=== PATIENT | male | born 1945 | race Caucasian/White ===

== ENCOUNTER 2016-11-07 08:38 | Outpatient (CLI) | payer MEDICARE, OTHER ==
[~2016-11-07] VITALS: Ht 175.3 cm; Wt 104.5 kg
[~2016-11-07 08:38] MED LIST: AMLO5TAB2 PO; ASP325T PO; CARV3.122 PO; CEPH500C PO; CHOL200041 PO; CLCX200C PO; ERGO400C PO; GLUC-135 PO; GLUC-96 PO; GLUCOSAMINE SULFATE PO; HYDR12.56 PO; HYDR1TAB PO; INDO25CA PO; LACT1CAP62 PO; LOSA25TA5 PO; MELO-195 PO; MULT-608 PO; NFAMINITAB PO; OMEG-12 PO; OMEG1CAP74 PO; PNT40TEC PO; POTA2TAB15 PO; POTA99TA7 PO; QUIN10TA17 PO; SIMV10TA3 PO; SIMV20TA3 PO; TERA2CAP4 PO; TRIA1TAB3 PO; ZLP10T PO
[2016-11-07 09:00] VITALS: BP 198/104
[2016-11-07 09:15] VITALS: BP 198/104
[2016-11-07 09:27] LABS: BASOPHILS # (AUTO) 0.1 10^3/uL (0.0-0.1); BASOPHILS % (AUTO) 1 % (0-10); EOSINOPHILS # (AUTO) 0.2 10^3/uL (0.0-0.3); EOSINOPHILS % (AUTO) 3 % (0-10); LYMPHOCYTES # (AUTO) 1.4 X 10^3 (1.0-4.0); LYMPHOCYTES % (AUTO) 19 % (12-44); MEAN CORPUSCULAR HEMOGLOBIN 32 PG (25-34); MEAN CORPUSCULAR HGB CONC 35 G/DL (32-36); MEAN CORPUSCULAR VOLUME 91 FL (80-99); MEAN PLATELET VOLUME 12.9 FL (7.4-10.4); MONOCYTES # (AUTO) 0.6 X 10^3 (0.0-1.0); MONOCYTES % (AUTO) 9 % (0-12); NEUTROPHILS # (AUTO) 4.8 X 10^3 (1.8-7.8); NEUTROPHILS % (AUTO) 68 % (42-75); PLATELET COUNT 130 10^3/uL (130-400); RED BLOOD COUNT 5.69 10^6/uL (4.35-5.85); RED CELL DISTRIBUTION WIDTH 13.1 % (10.0-14.5)
[2016-11-07 09:50] LABS: PROTHROMBIN TIME PATIENT 13.2 SEC (12.2-14.7)
--- NOTE | 2016-11-07 11:08 | Diagnostic Imaging Report ---
EXAMINATION: Fluoroscopic guided lumbar puncture with intrathecal contrast injection and myelogram performed. INDICATION: Back pain. FLUOROSCOPY TIME: 45 seconds CONSENT: Informed consent was obtained from the patient. The risks, benefits, potential complications and alternatives were reviewed and all questions answered to the patient's satisfaction. PROCEDURE: After sterile preparation and draping, 1% lidocaine was utilized for local anesthesia. Under fluoroscopic guidance, a 22-gauge spinal needle is advanced into the spinal canal at the level of L4/5. Clear CSF is obtained. Under fluoroscopic visualization, 12 cc of intrathecal Omnipaque-240 is administered into the thecal sac. The patient tolerated the procedure well with no immediate complications. FINDINGS: Myelogram images demonstrate opacification of the thecal sac. There is posterior osteophytes with high-grade stenosis at the L3/4 level. IMPRESSION: Successful fluoroscopic guided intrathecal contrast injection with myelogram obtained and a lumbar CT myelogram to follow. Dictated by: Dictated on workstation # [id number]
--- NOTE | 2016-11-07 11:39 | Diagnostic Imaging Report ---
CLINICAL INDICATION: Patient with history of back pain. EXAM: Axial CT scan of the lumbar spine myelogram post intrathecal contrast injection myelogram which was performed with sagittal and coronal reformations. The injection of intrathecal contrast was performed by another physician. Please see their notes regarding the procedure. COMPARISON: CT scan of the abdomen and pelvis performed without and with IV contrast dated 12/04/2014. FINDINGS: Nonobstructive bilateral renal stones and bilateral renal cysts are again seen. There is amorphous calcification of a nodular area involving the posterior limb of the left adrenal gland, which measures roughly 14 mm. This is stable compared to the prior CT scan. There is mild levoscoliosis of lumbar spine with apex at the L3 vertebral body level. Otherwise, the lumbar spine has normal alignment with no fractures or dislocations. There are no bony destructive lytic processes seen. There is a 5 mm nodular rounded lesion in the region of the cauda equina at the level of the L4-L5 intervertebral region. Otherwise, the visualized portions of the distal spinal cord, conus medullaris, and cauda equina have normal anatomic appearance. The conus medullaris tip is seen at the upper L2 vertebral body level. Paraspinal soft tissues unremarkable. There are hypertrophic disc spurs seen throughout the lumbar spine which is worse at the L3-L4 level. There is multilevel facet arthropathy. T12-L1: Mild bilateral facet arthropathy. There is no significant central spinal canal or neural foramen narrowing. L1-L2: There is a diffuse disc bulge, chronic Schmorl's node involving the inferior L1 endplate, mild bilateral facet arthropathy and minimal ligament flavum buckling. There is mild central canal narrowing and mild bilateral neural foramen narrowing. L2-L3: There is a diffuse disc bulge with disc spurs extending into the foraminal regions bilaterally. There is zynp-qy-eavwqpru bilateral facet arthropathy and minimal ligamentum flavum buckling. There is dplv-dq-kchrhgfk central canal narrowing. There is severe right neural foramen narrowing and moderate left neural foramen narrowing. L3-L4: There is a diffuse disc bulge, severe loss of intervertebral disc height, endplate irregularity and hypertrophic disc spurs in the far right lateral region. There are disc spurs which extend posteriorly and into the foraminal regions bilaterally. There is severe bilateral facet arthropathy with hypertrophic changes on the right ligament flavum buckling. There is severe central canal narrowing and severe bilateral neural foramen narrowing. L4-L5: There is a diffuse disc bulge, mild loss of intervertebral disc height, vacuum disc changes, moderate bilateral facet arthropathy with hypertrophic changes. There is mild central canal narrowing and severe bilateral neural foramen narrowing. L5-S1: There is a diffuse disc bulge, hlaohvjo-xg-mzwxuy loss of intervertebral disc height, chronic Schmorl's node involving the inferior L5 endplate, vacuum disc changes, moderate size anterior disc extrusion/herniation, moderate right facet arthropathy and severe left facet arthropathy. There is no significant central canal narrowing. There is severe bilateral neural foramen narrowing. IMPRESSION: 1: There is an intrathecal 5 mm nodular area in the region of the cauda equina which is seen at the L4-L5 intervertebral level. 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 Drop metastasis cannot be completely excluded. Meningioma is less likely. MRI of the lumbar spine with and without IV contrast is suggested for better evaluation. 2: There is levoscoliosis and severe multilevel lumbar spine degenerative disc disease with diffuse disc bulges, disc herniations, and facet arthropathy. 3: There is severe central canal narrowing at the L3-L4 level due to disc spurs and facet arthropathy/ligamentum flavum buckling. 4: There is severe multilevel neural foramen narrowing seen from the L3 through S1 levels. Dictated by: Dictated on workstation # [id number]
[2016-11-07 12:22] VITALS: BP 168/96
[2016-11-07 13:15] VITALS: BP 165/83
--- NOTE | 2016-11-07 13:55 | Diagnostic Imaging Report ---
CLINICAL INDICATION: Patient with history of left arm numbness and pain. No known injury. EXAM: Axial CT cervical myelogram with sagittal and coronal reformations. The injection of intrathecal contrast was performed by another physician. Please see their notes regarding the procedure. COMPARISON: MRI of the cervical spine performed without IV contrast dated 10/17/2016. Findings: There is limited visualization of the lower cervical spine due to streak artifact and patient body habitus. Visualized portions of the intrathecal contrast is seen homogeneously throughout the cervical central spinal canal and posterior fossa region with no gross intrathecal masses or abnormality seen. There are no postop changes seen. There is abnormal straightening of the mid to lower cervical spine posture likely related to degenerative disc disease. There is no acute cervical spine fracture. There is hypertrophic disc spurs seen throughout the cervical spine and bilateral facet arthropathy. There are no fractures or dislocations seen. There is calcified granuloma in the right lung apex. Otherwise, the visualized lung apices are unremarkable. Is asymmetry of the thyroid gland tissue with the right side larger than left. There is concern for partially calcified nodule in the right thyroid gland which is obscured by streak artifact. There is atherosclerotic calcification of the bilateral carotid arteries. C1-C2: Again seen hypertrophic anterior spurs involving the atlantoodontoid interval anteriorly. There is a stable prominent periodontoid pannus seen. There is subchondral cystic changes involving the odontoid process. There is no significant central spinal canal. C2-C3: There is no significant disc bulge or herniation. There is severe right facet arthropathy/hypertrophy and zotp-ir-aalmwtdp left facet arthropathy. There is ipshliel-yz-ezufdi right neural foramen narrowing and no significant left neural foramen narrowing. There is no significant central canal narrowing. C3-C4: There is stable grade 1 anterolisthesis of C3 on C4 with diffuse disc bulge and small spurs in the bilateral foraminal regions. There is severe left facet arthropathy/hypertrophy and moderate right facet arthropathy/hypertrophy. There is stable nzjy-qw-mxkuzzag central canal narrowing. There is stable uszkczfg-hf-ktzilw right neural foramen narrowing and severe left neural foramen narrowing. C4-C5: There is concern for subtle grade 1 anterolisthesis of C4 on C5, which is more evident on today's exam than the prior study. There is a diffuse disc bulge, minimal ligamentum flavum buckling, severe left facet arthropathy/hypertrophy, and grdy-xi-ecvpkked right facet arthropathy. There is phmp-vn-sojvlpro central canal narrowing. There is severe left neural foramen narrowing and mild right neural foramen narrowing. C5-C6: Again seen diffuse disc bulge, xuzvmbrg-nm-ysdros loss of intervertebral disc height, hypertrophic disc spurs posteriorly and anteriorly and small bilateral uncinate spurs. There is moderate bilateral facet arthropathy. There is stqhyfmt-fp-ugfgzn central canal narrowing and roipnsge-nx-mttmod bilateral neural foramen narrowing (right side more than the left). C6-C7: Again seen diffuse disc bulge with moderate to severe loss of intervertebral disc height, endplate irregularity, Schmorl's nodes, hypertrophic disc spurs anteriorly and posteriorly and bilateral uncinate spurs. There is severe central canal narrowing and severe bilateral neural foramen narrowing. C7-T1: There is stable grade 1 anterolisthesis of C7 on T1 with diffuse disc bulge and moderate right facet arthropathy and mild left facet arthropathy. There is eveh-lq-vrzkedia central canal narrowing. There is smpg-nw-qzmhwbzu left neural foramen narrowing. IMPRESSION: 1: There is stable nthseizq-ea-bvqzod multilevel cervical spine degenerative disc disease which is worse at the C5-C6 and C6-C7 levels with multilevel diffuse disc bulges and facet arthropathy. 2: There is grade 1 anterolisthesis of C3 on C4, C4 on C5, and C7 on T1. 3: There is multilevel central canal and neural foramen narrowing, as described above. 4: There are severe degenerative changes of the C1-C2 level including prominent periodontal pannus. 5: Concern for right thyroid gland nodule, which is partially calcified. Thyroid ultrasound would better evaluate. Dictated by: Dictated on workstation # [id number]
[2016-11-07] MEDS ORDERED: ACETAMINOPHEN 500 MG TAB (TYLENOL) PO PRN (14:45)
[2016-11-07] MEDS ORDERED: CETI10TA17 PO (14:58)
[2016-11-07] MEDS ORDERED: PANT40TA2 PO (14:58)
[2016-11-07] MEDS ORDERED: MONT10TA24 PO (14:58)
[2016-11-07] MEDS ORDERED: IBUP-1780 PO (14:58)
[2016-11-07] MEDS ORDERED: DOCU100C37 PO (14:58)
[2016-11-07] MEDS ORDERED: POLY15DR14 OU (14:58)
[2016-11-07] MEDS ORDERED: ASPI-983 PO (14:58)
[2016-11-07] MEDS ORDERED: NYST1000 PO (14:58)
[2016-11-07] MEDS ORDERED: LOSA100T28 PO (14:58)
[2016-11-07] MEDS ORDERED: LEVO25TA5 PO (14:58)
[2016-11-07] MEDS ORDERED: ATOR20TA66 PO (14:58)
[2016-11-07] MEDS ORDERED: TIOT4MIS2 IH (14:58)
[2016-11-07 15:15] VITALS: BP 162/84
== END 2016-11-07 16:15 | disposition home or self-care (01) ==
LOC: RAD 08:38 → 4TH 08:38 → RAD 16:15
PROVIDERS: ATTEND Orthopaedic Surgery Orthopaedic Surgery of the Spine
DX: M48.02 Spinal stenosis, cervical region (principal); M48.06 Spinal stenosis, lumbar region
CPT/HCPCS: 36415; 62284; 72126; 72132; 72270; 77002; 85025; 85610; 85730

== ENCOUNTER → 2016-11-14 | Outpatient (CLI) | payer MEDICARE, OTHER ==
[~2016-11-14] MED LIST changes: +ASPI-983 PO; +ATOR20TA66 PO; +CETI10TA17 PO; +DOCU100C37 PO; +IBUP-1780 PO; +LEVO25TA5 PO; +LOSA100T28 PO; +MONT10TA24 PO; +NYST1000 PO; +PANT40TA2 PO; +POLY15DR14 OU; +TIOT4MIS2 IH
--- NOTE | 2016-11-15 08:48 | ECHOCARDIOGRAPHY REPORT ---
PROCEDURE PHYSICIAN: BECKY KRISHNAN DATE OF PROCEDURE: 11/14/2016 TWO DIMENSIONAL ECHOCARDIOGRAM REPORT PRIMARY PHYSICIAN: Dr. Encinas OTHER PHYSICIAN: REFERRING PHYSICIAN: ORDERING PHYSICIAN: Dr. Krishnan INDICATION FOR THE PROCEDURE: 1. Pulmonary hypertension. 2. Hypertension. 3. Hyperlipidemia. 4. Sleep apnea. MEASUREMENTS DERIVED VALUES LV DIAMETER (LAX) NORMALS NORMALS Diastolic 5 (3.6-5.2) Eject. Fract. (60%+/-6%) Systolic (2.3-3.9) Diastolic Vol. % Shortening (0.22-0.42) Systolic Vol. Aortic Root 3.4 IVS THICKNESS Diastolic 1.2 (0.6-1.1) LVPW THICKNESS Diastolic 1.3 (0.6-1.1) LA DIAMETER Systolic 5.2 (2.1-3.7) DESCRIPTION: Two-dimensional echocardiography shows normal global left ventricular systolic function with normal regional wall motion. Aortic, mitral and tricuspid valve leaflets show good leaflet excursion. There is no significant pericardial effusion. There is moderate enlargement of the left atrium. Aortic, mitral and tricuspid valve leaflets show good reconstruction. Doppler imaging shows mild pulmonic regurgitation. Mild aortic, tricuspid and mitral regurgitation is also seen. There is no Doppler evidence of any significant valvular stenosis. Left ventricular ejection fraction is estimated to be 50 to 60%. Pulmonary artery systolic pressure is estimated to be approximately 40 to 45 mmHg. There is no evidence of significant intracardiac shunt on this transthoracic echocardiographic study. Inferior vena cava appears to be of normal size and does exhibit inspiratory collapse. CONCLUSIONS: 1. Normal global left ventricular systolic function with an ejection fraction of approximately 50 to 55%. 2. Moderate enlargement of the left atrium. 3. Mild pulmonic mitral, tricuspid and aortic regurgitation. 4. No evidence of significant valvular stenosis. 5. Pulmonary artery systolic pressure is estimated to be 40 to 45 mmHg. 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
== END ==
LOC: CARD 11:53
PROVIDERS: ATTEND Internal Medicine Cardiovascular Disease
DX: I10 Essential (primary) hypertension (principal); E78.4 Other hyperlipidemia; G47.33 Obstructive sleep apnea (adult) (pediatric); I47.2 Ventricular tachycardia; I27.2 Other secondary pulmonary hypertension; E66.09 Other obesity due to excess calories
CPT/HCPCS: 93306

== ENCOUNTER → 2016-11-15 | Outpatient (CLI) | payer MEDICARE, OTHER ==
--- NOTE | 2016-11-15 10:55 | Diagnostic Imaging Report ---
PROCEDURE: MRI lumbar spine. TECHNIQUE: Multiplanar, multisequence MRI of the lumbar spine was performed without contrast. The patient was originally scheduled to have intravenous contrast for this exam, but he declined the contrast. INDICATION: Back pain. FINDINGS: There are no previous MRI lumbar spine examinations available for comparison. The recent CT lumbar spine exam performed on 11/07/2016 noted degenerative disc and bony disease throughout the lumbar spine with the L3-4 level the most significantly affected. There was severe trefoil stenosis at this level as well as marked narrowing of the neural foramina bilaterally, particularly on the right. Those degenerative changes are again evident on this study and essentially no different. The AP diameter of the thecal sac is narrowed to 4.5 mm. The previous exam also identified degenerative disc and bony disease at L2-3, L4-5 and L5-S1. At the L2-3 level, there is trefoil stenosis with narrowing of the AP dimension of the thecal sac to approximately 9.1 mm. There is also moderate narrowing of the neural foramen bilaterally at this level. At the L4-5 level, there is deformity of the thecal sac due to degenerative disc, ligamentous and bony disease. The AP diameter of thecal sac is approximately 12.3 mm. There does appear to be severe narrowing of the neural foramina bilaterally. At L5-S1, there is no evidence for central stenosis as the AP diameter of the thecal sac measures 17.9 mm. There is severe narrowing of the neural foramen bilaterally however. At the L1-2 level, the AP diameter of the thecal sac measures 10.5 mm. There is moderate narrowing of the neural foramina bilaterally at this level. The previous exam astutely noted a small 5 mm rounded lesion in the region of the cauda equina at the level of L4-5. 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 That lesion is difficult to visualize in the absence of intravenous contrast. There is no abnormal signal arising from the osseous structures to suggest bone edema or fracture. There is no sign of a cord lesion. There is no paraspinal mass identified. IMPRESSION: 1. The degenerative disc, ligamentous and bony disease throughout the lumbar spine seen on the recent CT lumbar spine exam is again evident and no different. The L3-4 level is the most significantly affected although there is severe narrowing of the neural foramen bilaterally at L4-5 and L5-S1. 2. The small nodular density arising from one of the nerve roots at the L4-5 level could not be identified on this study due to the absence of intravenous contrast. Most likely this is a benign process however. 3. There is no acute bony abnormality identified and there is no sign of a cord lesion. Dictated by: Dictated on workstation # [id number]
== END ==
LOC: RAD 09:29
PROVIDERS: ATTEND Orthopaedic Surgery Orthopaedic Surgery of the Spine
DX: M48.06 Spinal stenosis, lumbar region (principal)
CPT/HCPCS: 72148

== ENCOUNTER → 2016-12-18 | Outpatient (CLI) | payer MEDICARE, OTHER ==
[~2016-12-18] VITALS: Ht 175.3 cm; Wt 108.0 kg
[~2016-12-18] MED LIST changes: +DEXAMETHASONE PF 10 MG/ML (DECADRON) VIAL ONE
[2016-12-18 14:13] VITALS: BP 179/97
--- NOTE | 2016-12-18 14:42 | Pain Medicine-Procedure ---
Procedure Pre-Op/Post-Op Diagnosis Diagnosis: disc disorder with radiculopathy, cervical Indications for Operation Neck pain Attending Surgeon Mariya Procedure Date of Service: Dec 18, 2016 Procedure: Cervical Epidural Steroid Injection at the C7-T1 Level under Fluoroscopic Guidance Procedure: Pt was identified in the holding area. After risks, benefits, and alternatives were discussed with the patient, informed consent was obtained. An IV was placed by nursing staff prior to procedure. Patient was brought to the fluoroscopy suite and placed prone on the operating table. A time out was performed. Vital signs were monitored throughout the procedure. The patients neck was prepped and draped in the usual sterile fashion. The patients skin was anesthetized using 1% Lidocaine. A 18 gauge tuohy needle was inserted and advanced to the C7-T1 epidural space under fluoroscopic guidance using the loss of resistance technique. The needle position was confirmed in the AP and lateral view. After negative aspiration 2 ml of non-ionic contrast was injected under live fluoroscopy which showed good spread of the contrast in the epidural space at the appropriate level, there was no intravascular or subarachnoid spread. Again, after negative aspiration, 3 ml of preservative free normal saline and 10 mg of dexamethasone was injected. The needle was removed and the patient was transferred to the recovery area in stable condition. And after a brief period of observation was discharged to home in stable condition with no new neurologic deficits. Complications None HERB MANRIQUEZ MD Dec 18, 2016 2:42 pm
== END ==
LOC: CARD 13:20
PROVIDERS: ATTEND Pain Medicine Pain Medicine
DX: M50.13 Cervical disc disorder with radiculopathy, cervicothoracic region (principal)
CPT/HCPCS: 62321

== ENCOUNTER → 2016-12-21 | Outpatient (CLI) | payer MEDICARE, OTHER ==
[~2016-12-21] MED LIST changes: -DEXAMETHASONE PF 10 MG/ML (DECADRON) VIAL ONE; +GADOBUTROL 10 MMOL/10 ML (GADAVIST) VIAL IV ONE
[2016-12-21 13:55] LABS: BLOOD UREA NITROGEN 18 MG/DL (7-18); BUN/CREATININE RATIO 16; CREATININE SERUM 1.16 MG/DL (0.60-1.30); GFR ESTIMATED > 60
--- NOTE | 2016-12-21 15:31 | Diagnostic Imaging Report ---
PROCEDURE: MRI lumbar spine with and without contrast. TECHNIQUE: Multiplanar, multisequence MRI of the lumbar spine was performed with and without contrast. INDICATION: Back pain. Nodule seen on CT myelogram lumbar spine of 11/07/2016. 10 mL of Gadovist is administered intravenously. FINDINGS: There is an enhancing nodule with isointense T1 and hyperintense T2 signal seen along the posterior right side aspect of the spinal canal in an intradural location. On this exam, it is more posteriorly located compared to its central anterior location on 11/07/2016 myelogram exam. This is suggestive of site of origin in the cauda equina nerve roots. It is 6 x 5 x 3 mm in size and demonstrates homogeneous enhancement. No other lesion within the thecal sac with similar characteristics and no enhancing mass. The alignment of the posterior spinal line is satisfactory. The vertebral body heights are preserved. There are mild Modic type I changes seen along the endplates in the upper, mid and lower lumbar spine levels. There is disc desiccation at all levels. There is significant disc height loss at L3/L4 and moderate disc height loss at L5/S1 level. There is no suspicious marrow signal abnormality. A few scattered small lesions in the vertebral bodies of the lumbar spine and sacrum are compatible with hemangiomas. T12/L1: No disc herniation. There is mild facet hypertrophy. No spinal canal or foraminal stenosis. The conus terminates at lower L1 level. L1/L2: There is a mild disc bulge and moderate facet hypertrophy. There is no significant spinal canal stenosis. There is no foraminal narrowing. L2/L3: There is a diffuse disc bulge and moderate facet arthropathy. There is mild central canal stenosis reducing the AP dimension of the canal to 9.6 mm with associated mild to moderate lateral recess stenosis bilaterally. There is moderate to severe foraminal stenosis on the right side and no significant foraminal stenosis on the left. L3/L4: There is a diffuse disc bulge and moderate to severe facet arthropathy. This results in severe spinal canal stenosis reducing the AP dimension of the spinal canal to 5.2 mm and bilateral lateral recess stenosis severe on the right and moderate to severe on the left. There is also bilateral foraminal stenosis, markedly severe on the right side and moderate to severe on the left. L4/L5: There is disc bulge asymmetric to the right side and moderate facet arthropathy bilaterally. No central canal stenosis. There is mild to moderate lateral recess stenosis on both sides. The foramina demonstrate markedly severe stenosis on the left and moderate to severe stenosis on the right side. L5/S1: There is diffuse disc bulge and mild to moderate facet arthropathy, more prominent on the left side. No central canal stenosis. Moderate left lateral recess stenosis is seen. No significant right lateral recess stenosis is noted. The foramina demonstrate bilateral markedly severe stenosis. IMPRESSION: 1. There is a 6 mm enhancing nodule along the cauda equina at L4/L5 level, probably along one of the right-sided descending nerve roots. This could be related to a nerve sheath tumor, meningioma or paraganglioma. Although no other similar lesions are seen, drop metastasis is not entirely excluded. Consider imaging of the brain and rest of the spine to rule out a primary lesion, particularly if other neurologic symptoms are present. 2. There is severe spinal canal stenosis at L3/L4 level and multilevel severe foraminal stenosis as described above. Dictated by: Dictated on workstation # [id number]
== END ==
LOC: RAD 13:06
PROVIDERS: ATTEND Pain Medicine Pain Medicine
DX: M54.5 Low back pain (principal)
CPT/HCPCS: 36415; 72158; 82565; 84520

== ENCOUNTER → 2017-01-09 | Outpatient (CLI) | payer MEDICARE, OTHER ==
--- NOTE | 2017-01-09 12:37 | Diagnostic Imaging Report ---
PROCEDURE: MR imaging of the brain with and without contrast. TECHNIQUE: Multiplanar, multisequence MR imaging of the brain was performed with and without contrast. INDICATION: Neck pain. Enhancing nodule in the lumbar spine along the cauda equina. 10 mL of Gadovist is administered intravenously. FINDINGS: There is no diffusion restriction to suggest an acute infarct or other diffusion abnormality. The brain parenchyma demonstrates mild periventricular and deep white matter T2 hyperintense signal lesions without associated mass effect or contrast enhancement, compatible with chronic microvascular ischemic changes of mild degree. This is a common finding at the patient's age. There is no hydrocephalus. No extra-axial fluid collection. There is no brain or extra-axial enhancing mass. The central vascular flow voids and internal auditory canals appear grossly unremarkable. The pituitary gland is normal in size. No hypothalamic or pineal region mass. IMPRESSION: No significant abnormality. Dictated by: Dictated on workstation # [id number]
--- NOTE | 2017-01-09 12:47 | Diagnostic Imaging Report ---
PROCEDURE: MR imaging cervical spine with and without contrast. TECHNIQUE: Multiplanar and multisequence MRI of the cervical spine was performed with and without contrast. INDICATION: Neck pain. Enhancing nodule along the cauda equina and lumbar spine. Evaluate for potential source of drop metastasis. 10 mL of Gadavist is administered intravenously. FINDINGS: There is mild anterior translation of C7 over T1 and minimal posterior translation of C6 over C7. The discs at these levels demonstrate significant disc height loss particularly at C6/7. There are posterior osteophytes noted. The vertebral bodies demonstrate marrow edema adjacent to the endplates around C5/6 compatible with reactive degenerative changes. The spinal cord has normal caliber, contour and signal. The foramen magnum and upper cervical canal are widely patent. There is mild reactive enhancement in vertebral body marrow signal within C4 and inferior endplate, matching the area of degenerative change seen on other sequences. There is no abnormal enhancement of the spinal canal or within the spinal cord. C2/3: No disc herniation, no spinal canal stenosis seen. There is bilateral moderate foraminal stenosis from facet arthropathy more prominent on the right side. C3/4: There is a mild disc spur complex with no significant spinal canal stenosis. The neural foramina demonstrate severe stenosis on the left and moderate stenosis on the right side. C4/5: There is spur disc complex and posterior ligamentous hypertrophy. The spinal canal demonstrate no significant stenosis centrally. There is mild spinal canal stenosis in the left side of the spinal canal abutting the posterior margin of the spinal cord within the left side of the canal. The neural foramina demonstrate severe stenosis bilaterally from uncovertebral and facet arthropathy. C5/6: There is spur disc complex associated with posterior ligamentous hypertrophy resulting in mild to moderate spinal canal stenosis with reduced AP dimension of the canal to 8.6 mm. No cord compression. The foramina demonstrate severe stenosis bilaterally. C6-7: There is disc spur complex and posterior ligamentous hypertrophy. There is also minimal posterior translation of C6 over C7. There is moderate spinal canal stenosis reducing the AP dimension of the canal to 7.6 cm abutting the spinal cord with minimal impression upon its anterior surface. The neural foramina demonstrates severe stenosis bilaterally. C7/T1: There is a spur disc complex and mild anterior translation of the vertebral bodies but no spinal canal stenosis or cord compression. The foramina demonstrate severe stenosis on the left and moderate stenosis on the right side. T1/T2: There is a mild disc spur complex with no central canal stenosis. There is bilateral moderate neural foraminal stenosis. IMPRESSION: 1. Advanced disc and facet degenerative changes with multilevel central canal and foraminal stenosis. 2. No enhancing mass in the spinal cord. Dictated by: Dictated on workstation # [id number]
--- NOTE | 2017-01-09 12:59 | Diagnostic Imaging Report ---
Multiplanar, multisequence MRI of the thoracic spine performed without and with intravenous contrast. INDICATION: Neck and back pain. Cauda equina enhancing nodule. Evaluate for possible underlying mass. 10 mL of Gadovist is administered intravenously. FINDINGS: The thoracic spine demonstrates normal alignment. There are preserved vertebral body heights. There is a 1.6 cm lesion in the T10 vertebral body with fat signal suggestive of hemangioma. There is disc desiccation at all levels. The spinal cord has normal caliber, contour, and signal. There is bilateral mild foraminal narrowing at the T8-T9 level. Bilateral foraminal stenosis at T1-T2 and T2-T3 of moderate degree worse at T1-T2 is seen. There are mild disc herniations at T1-T2 and T2-T3 with no spinal canal stenosis. No significant spinal canal stenosis or cord compression at any level. There is no spinal canal or spinal cord enhancing mass. Prominent facet arthropathy at T12-L1 bilaterally and on the left side in particular at T11-T12 is seen. IMPRESSION: 1. Generally mild degenerative changes in the thoracic spine. There is foraminal stenosis bilaterally at T1-T2 and T2-T3. 2. There is no enhancing mass in the spinal canal or in the spinal cord. Similarly, no enhancing mass is seen in the brain or the cervical spine and therefore the nodule along the cauda equina in the lumbar spine is not a drop metastasis from the neural axis. Other possibility such as nerve sheath tumor is more likely. Dictated by: Dictated on workstation # [id number]
== END ==
LOC: RAD 09:39
PROVIDERS: ATTEND Pain Medicine Pain Medicine
DX: M54.6 Pain in thoracic spine (principal); M50.13 Cervical disc disorder with radiculopathy, cervicothoracic region
CPT/HCPCS: 70553; 72156; 72157

== ENCOUNTER → 2017-01-27 | Outpatient (CLI) | payer MEDICARE, OTHER ==
[~2017-01-27] MED LIST changes: -GADOBUTROL 10 MMOL/10 ML (GADAVIST) VIAL IV ONE
--- NOTE | 2017-01-27 12:40 | Diagnostic Imaging Report ---
INDICATION: Acute bronchitis. COMPARISON: 04/04/2016 FINDINGS: 2 views of the chest are obtained. Heart size is normal. The pulmonary vessels appear unremarkable. There is no pneumothorax, mediastinal widening or pleural fluid demonstrated. The lungs are clear. There are mild dependent changes in the spine. IMPRESSION: No acute cardiopulmonary abnormality. No interval change from the prior study. Dictated by: Dictated on workstation # [id number]
== END ==
LOC: RAD 11:47
PROVIDERS: ATTEND Nurse Practitioner Family
DX: J20.9 Acute bronchitis, unspecified (principal)
CPT/HCPCS: 71020

== ENCOUNTER → 2017-02-15 | Outpatient (CLI) | payer MEDICARE, OTHER ==
[~2017-02-15] VITALS: Ht 175.3 cm; Wt 107.0 kg
[~2017-02-15] MED LIST changes: +CATHETER FLUSH 10 ML SYR IV PRN; +REGADENOSON 0.4 MG/5 ML SYR (LEXISCAN) IV ONE
[2017-02-15 10:07] VITALS: BP 137/99
[2017-02-15 10:11] VITALS: BP 171/98
--- NOTE | 2017-02-17 09:10 | STRESS TEST ---
DATE OF SERVICE: 02/15/2017 PROCEDURES: RESTING AND POST REGADENOSON, TECHNETIUM-99M TETROFOSMIN SINGLE-PHOTON EMISSION COMPUTED TOMOGRAPHY ORDERING PHYSICIAN: Dr. Krishnan PRIMARY PHYSICIAN: Dr. Encinas. CLINICAL DIAGNOSES: Nonsustained wide complex tachycardia, hypertension, hyperlipidemia. Baseline images were carried out after injection of 9.99 mCi of technetium-99m Tetrofosmin. This was followed by 0.4 mg Regadenoson 29.9 mCi of technetium-99m tetrofosmin for stress imaging. The electrocardiogram showed sinus rhythm with isolated premature ventricular contractions and premature atrial contractions. He reported some nausea following regadenoson infusion, which resolved in a few minutes. Review of images at rest and following stress does not indicate any distinct perfusion defects consistent with significant myocardial ischemia or infarction. Gated images show well-preserved global left ventricular systolic function without distinct regional wall motion. Left ventricular ejection fraction is calculated to be 50%. Left ventricular end diastolic volume is 152 mL, TID is absent (0.93). DESCRIPTION: 1. No evidence of significant myocardial ischemia or infarction on this study. 2. Normal regional wall motion. 3. Well preserved global left ventricular systolic function with an ejection fraction of 50%. 4. Mild to moderate cardiomegaly. Job ID: [id number] DocumentID: [id number] Dictated Date: 02/16/2017 11:08:25 Speeder Tender Date: 02/16/2017 14:55:09 Dictated By: BECKY KRISHNAN MD, MA, FACP, FACC,
== END ==
LOC: CARD 08:24
PROVIDERS: ATTEND Internal Medicine Cardiovascular Disease
DX: I10 Essential (primary) hypertension (principal); E78.5 Hyperlipidemia, unspecified; I47.2 Ventricular tachycardia; I27.2 Other secondary pulmonary hypertension; E78.4 Other hyperlipidemia; G47.33 Obstructive sleep apnea (adult) (pediatric); E66.09 Other obesity due to excess calories
CPT/HCPCS: 78452; 93017

== ENCOUNTER → 2017-04-09 | Outpatient (CLI) | payer MEDICARE, OTHER ==
[~2017-04-09] MED LIST changes: -CATHETER FLUSH 10 ML SYR IV PRN; +CETI1TAB PO; +CHOL20003 PO; +CYAN100015 SL; +DILT240C53 PO; +FLUT16SP22 NS; +FLUT1BLS IH; +GABA-490 PO; +GLUC-173 PO; +METO200T32 PO; +MULT-1061 PO; +OXYM30SP NS; -REGADENOSON 0.4 MG/5 ML SYR (LEXISCAN) IV ONE; +UBID100C44 PO
== END ==
LOC: CARD 11:39
PROVIDERS: ATTEND Nurse Practitioner Family
DX: I49.9 Cardiac arrhythmia, unspecified (principal); R06.02 Shortness of breath
CPT/HCPCS: 93005

== ENCOUNTER → 2017-04-10 | Day surgery (SDC) | payer MEDICARE, OTHER ==
[~2017-04-10] VITALS: Ht 175.3 cm; Wt 106.6 kg
[~2017-04-10] MED LIST changes: +APIXABAN 5 MG (ELIQUIS) TABLET PO NR; +LIDOCAINE 2% VISCOUS 15 ML UDC ONE; +LIDOCAINE 2% VISCOUS 15 ML UDC PO ONE; +MIDAZOLAM 2 MG/2 ML (VERSED) VIAL ONE; +NS IV 1000 ML 1,000 ML IV SCH; +NS IV 1000 ML 1,000 ML ONE; +fentaNYL INJECTION 100 MCG/2 ML AMP ONE; +proPOfol 200 MG/20 ML (DIPRIVAN) VIAL IV ONE
[2017-04-10 08:56] VITALS: BP 159/122
[2017-04-10 08:58] LABS: MEAN PLATELET VOLUME 13.2 FL (7.4-10.4); RED BLOOD COUNT 4.94 10^6/uL (4.35-5.85); RED CELL DISTRIBUTION WIDTH 14.5 % (10.0-14.5); WHITE BLOOD COUNT 7.5 10^3/uL (4.3-11.0)
[2017-04-10 09:07] LABS: INR 1.1 (0.8-1.4); PROTHROMBIN TIME PATIENT 14.3 SEC (12.2-14.7)
[2017-04-10 09:17] LABS: ALBUMIN 4.3 GM/DL (3.2-4.5); BILIRUBIN,TOTAL 1.4 MG/DL (0.1-1.0); CALCIUM 9.5 MG/DL (8.5-10.1); CREATININE SERUM 1.21 MG/DL (0.60-1.30); ICTERUS 1.4 (-100-1.9); POTASSIUM 3.9 MMOL/L (3.6-5.0); TOTAL PROTEIN 6.8 GM/DL (6.4-8.2)
[2017-04-10 12:17] VITALS: BP 119/71
[2017-04-10 12:31] VITALS: BP 100/65
--- NOTE | 2017-04-10 13:49 | Cardiac Procedure Note-CS/ASA ---
Pre-Procedure Note Pre-Op Procedure Note H&P Reviewed The H&P was reviewed, patient examined and no changes noted. Date H&P Reviewed: Apr 10, 2017 Time H&P Reviewed: 11:00 Conscious Sedation Pre-Proced Time Reviewed: 11:00 ASA Class: 3 Airway Mallampati Classification: ([place] appropriate class) I. II. III, IV Lungs Heart ASA score ASA 1: a normal healthy patient ASA 2: a patient with a mild systemic disease (mid diabetes, controlled hypertension, obesity ASA 3: a patient with a severe systemic disease that limits activity (angina , COPD, prior Myocardial infarction) ASA 4: a patient with an incapacitating disease that is a constant threat to life (CHF, renal failure) ASA 5: a moribund patient not expected to survive 24 hrs. (ruptured aneurysm) ASA 6: a declared brain patient whose organs are being harvested. For emergent operations, add the letter E after the classification Grade 3 Sedation Plan: Analgesia, Amnesia, Plan communicated to team members, Discussed options with patient/fam, Discussed risks with patient/fam Note The patient is an appropriate candidate to undergo the planned procedure, sedation, and anesthesia. The patient immediately re-assessed prior to indication. BECKY MUJICA MD FACP FACC CCDS Apr 10, 2017 13:49
[2017-04-10 14:15] VITALS: BP 127/88
--- NOTE | 2017-04-10 15:02 | Anesthesia-Procedure Note ---
Procedure Start/Stop Time Date of Procedure: Apr 10, 2017 Start Time: :20 Stop Time: 11:40 Procedures/Interventions Procedures Called to microbiology lab assistant to sedate patient for DIVINE and cardioversion. Patients history including allergies, significant medical history and medications were reviewed. Patient was on oxygen, monitored thru out and all resuscitation equipment was immediately available. Patient was sedated with a total of 70mg of propofol, 2mg of versed and 50mcg of fentanyl. Patient's airway and vital signs were maintained during procedure. Care was returned to CCL RN after patient was able to maintain his own airway. Patient tolerated the procedure well. See nurses notes for vital signs. TYLOR MELENDREZ CRNA Apr 10, 2017 15:02
--- NOTE | 2017-04-11 02:46 | OPERATIVE REPORT ---
DATE OF SERVICE: 04/10/2017 PREOPERATIVE DIAGNOSIS: Atrial fibrillation. POSTOPERATIVE DIAGNOSIS: Sinus rhythm. The patient is a 71-year-old gentleman who has had a recent onset of atrial fibrillation which has been persistent and quite symptomatic for him. Transesophageal echocardiography was carried today after having obtained an informed consent. There was no evidence of intracardiac thrombus. We had also obtained consent for ad hoc external electrical cardioversion. Once we made sure that there was no intracardiac thrombus, we carried out external electrical cardioversion using a synchronized 120 Stone biphasic shock. This restored atrial fibrillation to sinus bradycardia with premature atrial and ventricular contractions. Job ID: [id number] DocumentID: [id number] Dictated Date: 04/10/2017 11:47:59 Claims Support Specialist Date: 04/11/2017 01:02:17 Dictated By: BECKY MUJICA MD, MA, FACP, FACC,
--- OUTSIDE RECORDS SUMMARY | 2017-04-12 14:24 | XMS REPORT | Continuity of Care Document ---
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 01/05/2012 Ot V57.1 PHYSICAL THERAPY NEC 07/24/2012 Ot 272.4 HYPERLIPIDEMIA NEC/NOS 07/24/2012 Ot 327.23 OBSTRUCTIVE SLEEP APNEA (ADULT) (PEDIATR 07/24/2012 Ot 401.9 HYPERTENSION NOS 07/24/2012 Ot 414.01 CORONARY ATHEROSCLEROSIS OF [place] CORON 07/24/2012 Ot 427.69 PREMATURE BEATS NEC 07/24/2012 Ot 477.9 ALLERGIC RHINITIS NOS 07/24/2012 Ot 496 CHR AIRWAY OBSTRUCT NEC 07/24/2012 Ot 715.90 OSTEOARTHROS NOS-UNSPEC 07/24/2012 Ot 780.79 OTH MALAISE FATIGUE 07/24/2012 Ot 786.09 RESPIRATORY ABNORM NEC 07/24/2012 Ot 794.30 ABN CARDIOVASC STUDY NOS 07/24/2012 Ot V15.81 HX OF PAST NONCOMPLIANCE 07/24/2012 Ot V58.69 OTH MED,LT,CURRENT USE 05/02/2013 ZULEIKA HART, MERE Galindo Ot 327.23 OBSTRUCTIVE SLEEP APNEA (ADULT) (PEDIATR 05/11/2013 ARMANDO HART, RODNEY Vigil Ot 427.69 PREMATURE BEATS NEC 05/11/2013 RODNEY ROBERTS MD Ot 785.1 PALPITATIONS 02/24/2014 BLANCA HART, LEI Singh Ot 455.6 HEMORRHOIDS NOS 02/24/2014 BLANCA HART, LEI Singh Ot 564.00 UNSPEC CONSTIPATION 12/04/2014 Ot 735.0 12/04/2014 Ot V72.63 12/04/2014 Ot V74.8 12/04/2014 Ot 396.3 12/04/2014 Ot 397.0 12/04/2014 Ot 401.9 12/04/2014 Ot 786.05 12/04/2014 Ot 786.59 12/04/2014 Ot 401.9 12/04/2014 Ot 786.05 12/04/2014 Ot 786.59 12/04/2014 Ot 427.69 12/04/2014 Ot 785.1 12/04/2014 LAVON HART, CHANELL Rodríguez Ot 786.05 12/04/2014 LAVON HART, CHANELL M Ot 786.05 12/04/2014 LAVON HART, CHANELL M Ot 786.50 12/04/2014 ALVON HART, CHANELL M Ot 786.05 12/04/2014 LAVON HART, CHANELL M Ot 786.50 12/04/2014 LAVON HART, CHANELL M Ot 782.3 12/04/2014 LAVON HART, CHANELL M Ot 790.92 12/04/2014 LAVON HART, CHANELL M Ot 790.92 12/07/2014 Ot 396.3 12/07/2014 Ot 397.0 12/07/2014 Ot 401.9 12/07/2014 Ot 786.05 12/07/2014 Ot 786.59 12/07/2014 Ot 401.9 12/07/2014 Ot 786.05 12/07/2014 Ot 786.59 12/07/2014 Ot 427.69 12/07/2014 Ot 785.1 12/07/2014 LAVON HART, CHANELL M Ot 786.05 12/07/2014 LAVON HART, CHANELL M Ot 786.05 12/07/2014 LAVON HART, CHANELL M Ot 786.50 12/07/2014 LAVON HART, CHANELL M Ot 786.05 12/07/2014 LAVON HART, CHANELL M Ot 786.50 12/07/2014 LAVON HART, CHANELL M Ot 782.3 12/07/2014 LAVON HART, CHANELL M Ot 790.92 12/07/2014 LAVON HART, CHANELL Rodríguez Ot 790.92 12/07/2014 LAVON HART, CHANELL Rodríguez Ot 787.3 12/07/2014 LAVON HART, CHANELL Rodríguez Ot 789.00 12/11/2014 ASHLEY HER MD Ot 211.3 BENIGN NEOPLASM LG BOWEL 12/11/2014 ASHLEY HER MD Ot 530.11 REFLUX ESOPHAGITIS 12/11/2014 ASHLEY HER MD Ot 535.40 OTH SPECIFIED GASTRITIS,W/O MENTION OF H 12/11/2014 ASHLEY HER MD Ot 535.60 DUODENITIS, WITHOUT MENTION OF HEMORRHAG 12/11/2014 ASHLEY HER MD Ot 553.3 DIAPHRAGMATIC HERNIA 12/11/2014 ASHLEY HER MD Ot 562.10 DIVERTICULOSIS COLON (W/O MENT OF HEMORR 12/11/2014 ASHLEY HER MD Ot 600.00 HYPERTROPHY (BENIGN) OF PROSTATE W/O URI 12/11/2014 ASHLEY HER MD Ot V76.51 SCREEN MAL NEOP-COLON 12/11/2014 ASHLEY HER MD Ot 211.3 BENIGN NEOPLASM LG BOWEL 12/11/2014 ASHLEY HER MD Ot 530.11 REFLUX ESOPHAGITIS 12/11/2014 ASHLEY HER MD Ot 535.40 OTH SPECIFIED GASTRITIS,W/O MENTION OF H 12/11/2014 ASHLEY HER MD Ot 535.60 DUODENITIS, WITHOUT MENTION OF HEMORRHAG 12/11/2014 ASHLEY HER MD Ot 553.3 DIAPHRAGMATIC HERNIA 12/11/2014 ASHLEY HER MD Ot 562.10 DIVERTICULOSIS COLON (W/O MENT OF HEMORR 12/11/2014 ASHLEY HER MD Ot 600.00 HYPERTROPHY (BENIGN) OF PROSTATE W/O URI 12/11/2014 ASHLEY HER MD Ot V76.51 SCREEN MAL NEOP-COLON 12/16/2014 Ot 227.0 01/26/2015 Ot 227.0 08/04/2015 CLAYTON HERNANDEZ SHIPPING AND RECEIVING COORDINATOR Ot 427.0 08/04/2015 CLAYTON HERNANDEZ SHIPPING AND RECEIVING COORDINATOR Ot 427.69 08/20/2015 CLAYTON HERNANDEZ L SHIPPING AND RECEIVING COORDINATOR Ot 427.0 08/20/2015 CLAYTON HERNANDEZ SHIPPING AND RECEIVING COORDINATOR Ot 427.69 09/29/2015 DELANO GARCIA DO Ot J45.909 09/29/2015 DELANO GARCIA DO Ot R06.00 09/29/2015 DELANO GARCIA DO Ot R53.83 10/14/2015 DELANO GARCIA DO Ot J45.909 10/14/2015 DELANO GARCIA DO Ot R06.00 10/14/2015 DELANO GARCIA DO Ot R53.83 04/04/2016 Ot 735.0 HALLUX VALGUS 04/04/2016 Ot V72.63 PRE-PROCEDURAL LABORATORY EXAMINATION 04/04/2016 Ot V74.8 SCREEN-BACTERIAL DIS NEC 04/04/2016 Ot 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 04/04/2016 Ot 397.0 TRICUSPID VALVE DISEASE 04/04/2016 Ot 401.9 HYPERTENSION NOS 04/04/2016 Ot 786.05 SHORTNESS OF BREATH 04/04/2016 Ot 786.59 CHEST PAIN NEC 04/04/2016 Ot 401.9 HYPERTENSION NOS 04/04/2016 Ot 786.05 SHORTNESS OF BREATH 04/04/2016 Ot 786.59 CHEST PAIN NEC 04/04/2016 Ot 427.69 PREMATURE BEATS NEC 04/04/2016 Ot 785.1 PALPITATIONS 04/04/2016 CHANELL DOLL MD Ot 786.05 SHORTNESS OF BREATH 04/04/2016 CHANELL DOLL MD Ot 786.05 SHORTNESS OF BREATH 04/04/2016 CHANELL DOLL MD Ot 786.50 CHEST PAIN NOS 04/04/2016 CHANELL DOLL MD Ot 786.05 SHORTNESS OF BREATH 04/04/2016 CHANELL DOLL MD Ot 786.50 CHEST PAIN NOS 04/04/2016 CHANELL DOLL MD Ot 782.3 EDEMA 04/04/2016 CHANELL DOLL MD Ot 790.92 COAGULATION PROFILE, ABNORMAL 04/04/2016 CHAENLL DOLL MD Ot 790.92 COAGULATION PROFILE, ABNORMAL 04/04/2016 CHANELL DOLL MD Ot 787.3 FLATUL/ERUCTAT/GAS PAIN 04/04/2016 CHANELL DOLL MD Ot 789.00 ABDOMINAL PAIN, UNSPECIFIED SITE 04/04/2016 Ot 227.0 BENIGN NEOPLASM ADRENAL 04/04/2016 BAIMA, CLAYTON L SHIPPING AND RECEIVING COORDINATOR Ot 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 04/04/2016 PEPECLAYTON DOLL SHIPPING AND RECEIVING COORDINATOR Ot 427.69 PREMATURE BEATS NEC 04/04/2016 DELANO GARCIA DO Ot J45.909 UNSPECIFIED ASTHMA, UNCOMPLICATED 04/04/2016 DELANO GARCIA DO Ot R06.00 DYSPNEA, UNSPECIFIED 04/04/2016 JOSEDELANO GUERRA DO Ot R53.83 OTHER FATIGUE 04/06/2016 ISAIAHEDUARD QURESHI CAUSTIC PURIFICATION OPERATOR Ot R06.00 DYSPNEA, UNSPECIFIED 04/07/2016 ANTONIO COLONINE Shelia CAUSTIC PURIFICATION OPERATOR Ot G47.33 OBSTRUCTIVE SLEEP APNEA (ADULT) ( PEDIATR 04/07/2016 ANTONIO COLONINE Shelia CAUSTIC PURIFICATION OPERATOR Ot J30.2 OTHER SEASONAL ALLERGIC RHINITIS 04/07/2016 ISAIAHEDUARD QURESHI CAUSTIC PURIFICATION OPERATOR Ot R06.00 DYSPNEA, UNSPECIFIED 04/07/2016 EDUARD COLON CAUSTIC PURIFICATION OPERATOR Ot R53.83 OTHER FATIGUE 04/10/2016 EDUARD COLON CAUSTIC PURIFICATION OPERATOR Ot R06.00 DYSPNEA, UNSPECIFIED 04/12/2016 Ot E78.4 OTHER HYPERLIPIDEMIA 04/12/2016 Ot I10 ESSENTIAL (PRIMARY) HYPERTENSION 04/12/2016 Ot I25.10 ATHSCL HEART DISEASE OF [place] CORONARY 04/12/2016 Ot I49.3 VENTRICULAR PREMATURE DEPOLARIZATION 04/12/2016 Ot R00.2 PALPITATIONS 04/12/2016 Ot R06.02 SHORTNESS OF BREATH 04/12/2016 Ot R42 DIZZINESS AND GIDDINESS 04/26/2016 EDUARD COLON CAUSTIC PURIFICATION OPERATOR Ot G47.33 OBSTRUCTIVE SLEEP APNEA (ADULT) ( PEDIATR 04/26/2016 EDUARD COLON CAUSTIC PURIFICATION OPERATOR Ot J30.2 OTHER SEASONAL ALLERGIC RHINITIS 04/26/2016 ANTONIO COLONINE Shelia CAUSTIC PURIFICATION OPERATOR Ot R06.00 DYSPNEA, UNSPECIFIED 04/26/2016 ISAIAHANTONIO QURESHIINE Shelia CAUSTIC PURIFICATION OPERATOR Ot R53.83 OTHER FATIGUE 05/01/2016 ANTONIO COLONINE Shelia CAUSTIC PURIFICATION OPERATOR Ot G47.33 OBSTRUCTIVE SLEEP APNEA (ADULT) ( PEDIATR 05/01/2016 ANTONIO COLONINE Shelia CAUSTIC PURIFICATION OPERATOR Ot J30.2 OTHER SEASONAL ALLERGIC RHINITIS 05/01/2016 ISAIAHANTONIO QURESHIINE Shelia CAUSTIC PURIFICATION OPERATOR Ot R06.00 DYSPNEA, UNSPECIFIED 05/01/2016 ISAIAHANTONIO QURESHIINE Shelia CAUSTIC PURIFICATION OPERATOR Ot R53.83 OTHER FATIGUE 05/09/2016 Ot E78.4 OTHER HYPERLIPIDEMIA 05/09/2016 Ot I10 ESSENTIAL (PRIMARY) HYPERTENSION 05/09/2016 Ot I25.10 ATHSCL HEART DISEASE OF [place] CORONARY 05/09/2016 Ot I49.3 VENTRICULAR PREMATURE DEPOLARIZATION 05/09/2016 Ot R00.2 PALPITATIONS 05/09/2016 Ot R06.02 SHORTNESS OF BREATH 05/09/2016 Ot R42 DIZZINESS AND GIDDINESS 05/10/2016 Ot E78.4 OTHER HYPERLIPIDEMIA 05/10/2016 Ot I10 ESSENTIAL (PRIMARY) HYPERTENSION 05/10/2016 Ot I25.10 ATHSCL HEART DISEASE OF [place] CORONARY 05/10/2016 Ot I49.3 VENTRICULAR PREMATURE DEPOLARIZATION 05/10/2016 Ot R00.2 PALPITATIONS 05/10/2016 Ot R06.02 SHORTNESS OF BREATH 05/10/2016 Ot R42 DIZZINESS AND GIDDINESS 05/10/2016 CLAYTON HERNANDEZ SHIPPING AND RECEIVING COORDINATOR Ot I10 ESSENTIAL (PRIMARY) HYPERTENSION 05/11/2016 CLAYTON HERNANDEZ SHIPPING AND RECEIVING COORDINATOR Ot I10 ESSENTIAL (PRIMARY) HYPERTENSION 05/11/2016 EDUARD COLON APRN Ot R06.00 DYSPNEA, UNSPECIFIED 05/16/2016 EDUARD COLON CAUSTIC PURIFICATION OPERATOR Ot R06.00 DYSPNEA, UNSPECIFIED 06/05/2016 CLAYTON HERNANDEZ SHIPPING AND RECEIVING COORDINATOR Ot I42.0 DILATED CARDIOMYOPATHY 06/13/2016 CLAYTON HERNANDEZ SHIPPING AND RECEIVING COORDINATOR Ot I42.0 DILATED CARDIOMYOPATHY 07/04/2016 EDUARD COLON APRN Ot R06.00 DYSPNEA, UNSPECIFIED 07/05/2016 EDUARD COLON APRN Ot R06.00 DYSPNEA, UNSPECIFIED 10/17/2016 Ot 735.0 HALLUX VALGUS 10/17/2016 Ot V72.63 PRE-PROCEDURAL LABORATORY EXAMINATION 10/17/2016 Ot V74.8 SCREEN-BACTERIAL DIS NEC 10/17/2016 Ot 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 10/17/2016 Ot 397.0 TRICUSPID VALVE DISEASE 10/17/2016 Ot 401.9 HYPERTENSION NOS 10/17/2016 Ot 786.05 SHORTNESS OF BREATH 10/17/2016 Ot 786.59 CHEST PAIN NEC 10/17/2016 Ot 401.9 HYPERTENSION NOS 10/17/2016 Ot 786.05 SHORTNESS OF BREATH 10/17/2016 Ot 786.59 CHEST PAIN NEC 10/17/2016 Ot 427.69 PREMATURE BEATS NEC 10/17/2016 Ot 785.1 PALPITATIONS 10/17/2016 CHANELL DOLL MD Ot 786.05 SHORTNESS OF BREATH 10/17/2016 CHANELL DOLL MD Ot 786.05 SHORTNESS OF BREATH 10/17/2016 CHANELL DOLL MD Ot 786.50 CHEST PAIN NOS 10/17/2016 CHANELL DOLL MD Ot 786.05 SHORTNESS OF BREATH 10/17/2016 LAVON HART, CHANELL Rodríguez Ot 786.50 CHEST PAIN NOS 10/17/2016 LAVON HART, CHANELL Rodríguez Ot 782.3 EDEMA 10/17/2016 LAVON HART, CHANELL Rodríguez Ot 790.92 COAGULATION PROFILE, ABNORMAL 10/17/2016 CHANELL DOLL MD Ot 790.92 COAGULATION PROFILE, ABNORMAL 10/17/2016 CHANELL DOLL MD Ot 787.3 FLATUL/ERUCTAT/GAS PAIN 10/17/2016 CHANELL DOLL MD Ot 789.00 ABDOMINAL PAIN, UNSPECIFIED SITE 10/17/2016 Ot 227.0 BENIGN NEOPLASM ADRENAL 10/17/2016 CLAYTON HERNANDEZ SHIPPING AND RECEIVING COORDINATOR Ot 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 10/17/2016 CLAYTON HERNANDEZ SHIPPING AND RECEIVING COORDINATOR Ot 427.69 PREMATURE BEATS NEC 10/17/2016 DELANO GARCIA DO Ot J45.909 UNSPECIFIED ASTHMA, UNCOMPLICATED 10/17/2016 DELANO GARCIA DO Ot R06.00 DYSPNEA, UNSPECIFIED 10/17/2016 DELANO GARCIA DO Ot R53.83 OTHER FATIGUE 10/17/2016 EDUARD COLON APRN Ot G47.33 OBSTRUCTIVE SLEEP APNEA (ADULT) ( PEDIATR 10/17/2016 EDUARD COLON APRN Ot J30.2 OTHER SEASONAL ALLERGIC RHINITIS 10/17/2016 EDUARD COLON APRN Ot R06.00 DYSPNEA, UNSPECIFIED 10/17/2016 EDUARD COLON APRN Ot R53.83 OTHER FATIGUE 10/17/2016 Ot E78.4 OTHER HYPERLIPIDEMIA 10/17/2016 Ot I10 ESSENTIAL (PRIMARY) HYPERTENSION 10/17/2016 Ot I25.10 ATHSCL HEART DISEASE OF [place] CORONARY 10/17/2016 Ot I49.3 VENTRICULAR PREMATURE DEPOLARIZATION 10/17/2016 Ot R00.2 PALPITATIONS 10/17/2016 Ot R06.02 SHORTNESS OF BREATH 10/17/2016 Ot R42 DIZZINESS AND GIDDINESS 10/17/2016 CLAYTON HERNANDEZ SHIPPING AND RECEIVING COORDINATOR Ot I42.0 DILATED CARDIOMYOPATHY 10/17/2016 EDUARD COLON APRN Ot R06.00 DYSPNEA, UNSPECIFIED 10/19/2016 SHANTI HART, JOSI Vigil Ot M54.12 RADICULOPATHY, CERVICAL REGION 10/19/2016 SHANTI HART, JOSI Vigil Ot M54.12 RADICULOPATHY, CERVICAL REGION 11/06/2016 Ot 227.0 BENIGN NEOPLASM ADRENAL 11/06/2016 CLAYTON HERNANDEZ SHIPPING AND RECEIVING COORDINATOR Ot 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 11/06/2016 CLAYTON HERNANDEZ SHIPPING AND RECEIVING COORDINATOR Ot 427.69 PREMATURE BEATS NEC 11/06/2016 DELANO GARCIA DO Ot J45.909 UNSPECIFIED ASTHMA, UNCOMPLICATED 11/06/2016 DELANO GARCIA DO Ot R06.00 DYSPNEA, UNSPECIFIED 11/06/2016 DELANO GARCIA DO Ot R53.83 OTHER FATIGUE 11/06/2016 EDUARD COLON APRN Ot G47.33 OBSTRUCTIVE SLEEP APNEA (ADULT) ( PEDIATR 11/06/2016 EDUARD COLON APRN Ot J30.2 OTHER SEASONAL ALLERGIC RHINITIS 11/06/2016 EDUARD COLON APRN Ot R06.00 DYSPNEA, UNSPECIFIED 11/06/2016 EDUARD COLON APRN Ot R53.83 OTHER FATIGUE 11/06/2016 Ot E78.4 OTHER HYPERLIPIDEMIA 11/06/2016 Ot I10 ESSENTIAL (PRIMARY) HYPERTENSION 11/06/2016 Ot I25.10 ATHSCL HEART DISEASE OF [place] CORONARY 11/06/2016 Ot I49.3 VENTRICULAR PREMATURE DEPOLARIZATION 11/06/2016 Ot R00.2 PALPITATIONS 11/06/2016 Ot R06.02 SHORTNESS OF BREATH 11/06/2016 Ot R42 DIZZINESS AND GIDDINESS 11/06/2016 CLAYTON HERNANDEZ SHIPPING AND RECEIVING COORDINATOR Ot I42.0 DILATED CARDIOMYOPATHY 11/06/2016 EDUARD COLON APRN Ot R06.00 DYSPNEA, UNSPECIFIED 11/06/2016 SHANTI HART, JOSI Vigil Ot M54.12 RADICULOPATHY, CERVICAL REGION 11/07/2016 Ot 227.0 BENIGN NEOPLASM ADRENAL 11/07/2016 PEPECLAYTON DOLL Natasha SHIPPING AND RECEIVING COORDINATOR Ot 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 11/07/2016 DAVID CLAYTON Natasha SHIPPING AND RECEIVING COORDINATOR Ot 427.69 PREMATURE BEATS NEC 11/07/2016 DELANO GARCIA DO Ot J45.909 UNSPECIFIED ASTHMA, UNCOMPLICATED 11/07/2016 DELANO GARCIA DO Ot R06.00 DYSPNEA, UNSPECIFIED 11/07/2016 DELANO GARCIA DO Ot R53.83 OTHER FATIGUE 11/07/2016 EDUARD COLON APRN Ot G47.33 OBSTRUCTIVE SLEEP APNEA (ADULT) ( PEDIATR 11/07/2016 EDUARD COLON APRN Ot J30.2 OTHER SEASONAL ALLERGIC RHINITIS 11/07/2016 EDUARD COLON APRN Ot R06.00 DYSPNEA, UNSPECIFIED 11/07/2016 EDUARD COLON APRN Ot R53.83 OTHER FATIGUE 11/07/2016 Ot E78.4 OTHER HYPERLIPIDEMIA 11/07/2016 Ot I10 ESSENTIAL (PRIMARY) HYPERTENSION 11/07/2016 Ot I25.10 ATHSCL HEART DISEASE OF [place] CORONARY 11/07/2016 Ot I49.3 VENTRICULAR PREMATURE DEPOLARIZATION 11/07/2016 Ot R00.2 PALPITATIONS 11/07/2016 Ot R06.02 SHORTNESS OF BREATH 11/07/2016 Ot R42 DIZZINESS AND GIDDINESS 11/07/2016 PEPESHARMILA CLAYTON Natasha SHIPPING AND RECEIVING COORDINATOR Ot I42.0 DILATED CARDIOMYOPATHY 11/07/2016 EDUARD COLON APRN Ot R06.00 DYSPNEA, UNSPECIFIED 11/07/2016 JOSI MOSER MD Ot M54.12 RADICULOPATHY, CERVICAL REGION 11/07/2016 Ot 427.69 PREMATURE BEATS NEC 11/07/2016 Ot 785.1 PALPITATIONS 11/07/2016 EDUARD COLON APRN Ot R06.00 DYSPNEA, UNSPECIFIED 11/07/2016 JOSI OMSER MD Ot M48.02 SPINAL STENOSIS, CERVICAL REGION 11/07/2016 JOSI MOSER MD Ot M48.06 SPINAL STENOSIS, LUMBAR REGION 11/08/2016 JOSI MOSER MD Ot M48.02 SPINAL STENOSIS, CERVICAL REGION 11/08/2016 JOSI MOSER MD Ot M48.06 SPINAL STENOSIS, LUMBAR REGION 11/10/2016 JOSI MOSER MD Ot M54.12 RADICULOPATHY, CERVICAL REGION 11/10/2016 JOSI MOSER MD Ot M54.12 RADICULOPATHY, CERVICAL REGION 11/15/2016 JOSI MOSER MD Ot M48.06 SPINAL STENOSIS, LUMBAR REGION 11/17/2016 JOSI MOSER MD Ot M48.06 SPINAL STENOSIS, LUMBAR REGION 11/21/2016 JOSI MOSER MD Ot M48.06 SPINAL STENOSIS, LUMBAR REGION 12/06/2016 JOSI MOSER MD Ot M48.06 SPINAL STENOSIS, LUMBAR REGION 12/12/2016 SIL HART FACC, BECKY FACP CCDS Ot E66.09 OTHER OBESITY DUE TO EXCESS CALORIES 12/12/2016 SIL HART FACC, ALI FACP CCDS Ot E78.4 OTHER HYPERLIPIDEMIA 12/12/2016 SIL HART FACC, ALI FACP CCDS Ot G47.33 OBSTRUCTIVE SLEEP APNEA (ADULT) (PEDIATR 12/12/2016 SIL HART FACC, ALI FACP CCDS Ot I10 ESSENTIAL (PRIMARY) HYPERTENSION 12/12/2016 SIL HART FACC, ALI FACP CCDS Ot I27.2 OTHER SECONDARY PULMONARY HYPERTENSION 12/12/2016 SIL HART FACC, ALI FACP CCDS Ot 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 12/12/2016 SIL HART FACC, ALI FACP CCDS Ot E66.09 OTHER OBESITY DUE TO EXCESS CALORIES 12/12/2016 SIL HART FACC, ALI FACP CCDS Ot E78.4 OTHER HYPERLIPIDEMIA 12/12/2016 SIL HART FACC, ALI FACP CCDS Ot G47.33 OBSTRUCTIVE SLEEP APNEA (ADULT) (PEDIATR 12/12/2016 SIL HART FACC, ALI FACP CCDS Ot I10 ESSENTIAL (PRIMARY) HYPERTENSION 12/12/2016 SIL HART FACC, ALI FACP CCDS Ot I27.2 OTHER SECONDARY PULMONARY HYPERTENSION 12/12/2016 SIL HART FACC, ALI FACP CCDS Ot 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 12/12/2016 JOSI MOSER MD Ot M48.06 SPINAL STENOSIS, LUMBAR REGION 12/21/2016 HERB MANRIQUEZ MD Ot M54.5 LOW BACK PAIN 12/22/2016 HERB MANRIQUEZ MD Ot M54.5 LOW BACK PAIN 01/02/2017 HERB MANRIQUEZ MD Ot M50.13 CERVICAL DISC DISORDER W RADICULOPATHY, 01/09/2017 HERB MANRIQUEZ MD Ot M50.13 CERVICAL DISC DISORDER W RADICULOPATHY, 01/09/2017 HERB MANRIQUEZ MD Ot M54.6 PAIN IN THORACIC SPINE 01/10/2017 HERB MANRIQUEZ MD Ot M50.13 CERVICAL DISC DISORDER W RADICULOPATHY, 01/10/2017 HERB MANRIQUEZ MD Ot M54.6 PAIN IN THORACIC SPINE 01/10/2017 HERB MANRIQUEZ MD Ot M50.13 CERVICAL DISC DISORDER W RADICULOPATHY, 01/10/2017 HERB MANRIQUEZ MD Ot M54.6 PAIN IN THORACIC SPINE 01/11/2017 HERB MANRIQUEZ MD Ot M54.5 LOW BACK PAIN 01/16/2017 HERB MANRIQUEZ MD Ot M54.5 LOW BACK PAIN 01/29/2017 HERB MANRIQUEZ MD Ot M50.13 CERVICAL DISC DISORDER W RADICULOPATHY, 01/31/2017 HERB MANRIQUEZ MD Ot M50.13 CERVICAL DISC DISORDER W RADICULOPATHY, 01/31/2017 HERB MANRIQUEZ MD Ot M54.6 PAIN IN THORACIC SPINE 02/02/2017 HERB MANRIQUEZ MD Ot M50.13 CERVICAL DISC DISORDER W RADICULOPATHY, 02/05/2017 HERB MANRIQUEZ MD Ot M50.13 CERVICAL DISC DISORDER W RADICULOPATHY, 02/05/2017 HERB MANRIQUEZ MD Ot M54.6 PAIN IN THORACIC SPINE 02/14/2017 Ot 227.0 BENIGN NEOPLASM ADRENAL 02/14/2017 CLAYTON HERNANDEZ SHIPPING AND RECEIVING COORDINATOR Ot 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 02/14/2017 CLAYTON HERNANDEZ SHIPPING AND RECEIVING COORDINATOR Ot 427.69 PREMATURE BEATS NEC 02/14/2017 DELANO GARCIA DO Ot J45.909 UNSPECIFIED ASTHMA, UNCOMPLICATED 02/14/2017 DELANO GARCIA DO Ot R06.00 DYSPNEA, UNSPECIFIED 02/14/2017 DELANO GARCIA DO Ot R53.83 OTHER FATIGUE 02/14/2017 EDUARD COLON APRN Ot G47.33 OBSTRUCTIVE SLEEP APNEA (ADULT) ( PEDIATR 02/14/2017 EDUARD COLON APRN Ot J30.2 OTHER SEASONAL ALLERGIC RHINITIS 02/14/2017 EDUARD COLON APRN Ot R06.00 DYSPNEA, UNSPECIFIED 02/14/2017 EDUARD COLON APRN Ot R53.83 OTHER FATIGUE 02/14/2017 Ot E78.4 OTHER HYPERLIPIDEMIA 02/14/2017 Ot I10 ESSENTIAL (PRIMARY) HYPERTENSION 02/14/2017 Ot I25.10 ATHSCL HEART DISEASE OF [place] CORONARY 02/14/2017 Ot I49.3 VENTRICULAR PREMATURE DEPOLARIZATION 02/14/2017 Ot R00.2 PALPITATIONS 02/14/2017 Ot R06.02 SHORTNESS OF BREATH 02/14/2017 Ot R42 DIZZINESS AND GIDDINESS 02/14/2017 CLAYTON HERNANDEZ Ot I42.0 DILATED CARDIOMYOPATHY 02/14/2017 EDUARD COLON APRN Ot R06.00 DYSPNEA, UNSPECIFIED 02/14/2017 JOSI MOSER MD Ot M54.12 RADICULOPATHY, CERVICAL REGION 02/14/2017 SIL HART FACC, ALI FACP CCDS Ot E66.09 OTHER OBESITY DUE TO EXCESS CALORIES 02/14/2017 SIL HART FACC, ALI FACP CCDS Ot E78.4 OTHER HYPERLIPIDEMIA 02/14/2017 SIL HART FACC, ALI FACP CCDS Ot G47.33 OBSTRUCTIVE SLEEP APNEA (ADULT) (PEDIATR 02/14/2017 SIL HART FACC, ALI FACP CCDS Ot I10 ESSENTIAL (PRIMARY) HYPERTENSION 02/14/2017 SIL HART FACC, ALI FACP CCDS Ot I27.2 OTHER SECONDARY PULMONARY HYPERTENSION 02/14/2017 SIL HART FACC, ALI FACP CCDS Ot 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 02/14/2017 JOSI MOSER MD Ot M48.06 SPINAL STENOSIS, LUMBAR REGION 02/14/2017 HERB MANRIQUEZ MD Ot M54.5 LOW BACK PAIN 02/14/2017 HERB MANRIQUEZ MD Ot M50.13 CERVICAL DISC DISORDER W RADICULOPATHY, 02/14/2017 HERB MANRIQUEZ MD Ot M50.13 CERVICAL DISC DISORDER W RADICULOPATHY, 02/14/2017 HERB MANRIQUEZ MD Ot M54.6 PAIN IN THORACIC SPINE 02/14/2017 CHENTE ORTIZ SHIPPING AND RECEIVING COORDINATOR Ot J20.9 ACUTE BRONCHITIS, UNSPECIFIED 02/14/2017 SIL HART FACC, BECKY FACP CCDS Ot 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 02/15/2017 Ot 735.0 HALLUX VALGUS 02/15/2017 Ot V72.63 PRE-PROCEDURAL LABORATORY EXAMINATION 02/15/2017 Ot V74.8 SCREEN-BACTERIAL DIS NEC 02/15/2017 Ot 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 02/15/2017 Ot 397.0 TRICUSPID VALVE DISEASE 02/15/2017 Ot 401.9 HYPERTENSION NOS 02/15/2017 Ot 786.05 SHORTNESS OF BREATH 02/15/2017 Ot 786.59 CHEST PAIN NEC 02/15/2017 Ot 401.9 HYPERTENSION NOS 02/15/2017 Ot 786.05 SHORTNESS OF BREATH 02/15/2017 Ot 786.59 CHEST PAIN NEC 02/15/2017 Ot 427.69 PREMATURE BEATS NEC 02/15/2017 Ot 785.1 PALPITATIONS 02/15/2017 CHANELL DOLL MD Ot 786.05 SHORTNESS OF BREATH 02/15/2017 CHANELL DOLL MD Ot 786.05 SHORTNESS OF BREATH 02/15/2017 CHANELL DOLL MD Ot 786.50 CHEST PAIN NOS 02/15/2017 CHANELL DOLL MD Ot 786.05 SHORTNESS OF BREATH 02/15/2017 CHANELL DOLL MD Ot 786.50 CHEST PAIN NOS 02/15/2017 CHANELL DOLL MD Ot 782.3 EDEMA 02/15/2017 CHANELL DOLL MD Ot 790.92 COAGULATION PROFILE, ABNORMAL 02/15/2017 CHANELL DOLL MD Ot 790.92 COAGULATION PROFILE, ABNORMAL 02/15/2017 CHANELL DOLL MD Ot 787.3 FLATUL/ERUCTAT/GAS PAIN 02/15/2017 CHANELL DOLL MD Ot 789.00 ABDOMINAL PAIN, UNSPECIFIED SITE 02/15/2017 Ot 227.0 BENIGN NEOPLASM ADRENAL 02/15/2017 CLAYTON HERNANDEZ SHIPPING AND RECEIVING COORDINATOR Ot 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 02/15/2017 CLAYTON HERNANDEZ SHIPPING AND RECEIVING COORDINATOR Ot 427.69 PREMATURE BEATS NEC 02/15/2017 DELANO GARCIA DO Ot J45.909 UNSPECIFIED ASTHMA, UNCOMPLICATED 02/15/2017 DELANO GARCIA DO Ot R06.00 DYSPNEA, UNSPECIFIED 02/15/2017 JOSEDELANO GUERRA DO Ot R53.83 OTHER FATIGUE 02/15/2017 EDUARD COLON APRN Ot G47.33 OBSTRUCTIVE SLEEP APNEA (ADULT) ( PEDIATR 02/15/2017 EDUARD COLON APRN Ot J30.2 OTHER SEASONAL ALLERGIC RHINITIS 02/15/2017 EDUARD COLON APRN Ot R06.00 DYSPNEA, UNSPECIFIED 02/15/2017 EDUARD COLON APRN Ot R53.83 OTHER FATIGUE 02/15/2017 Ot E78.4 OTHER HYPERLIPIDEMIA 02/15/2017 Ot I10 ESSENTIAL (PRIMARY) HYPERTENSION 02/15/2017 Ot I25.10 ATHSCL HEART DISEASE OF [place] CORONARY 02/15/2017 Ot I49.3 VENTRICULAR PREMATURE DEPOLARIZATION 02/15/2017 Ot R00.2 PALPITATIONS 02/15/2017 Ot R06.02 SHORTNESS OF BREATH 02/15/2017 Ot R42 DIZZINESS AND GIDDINESS 02/15/2017 CLAYTON HERNANDEZ Ot I42.0 DILATED CARDIOMYOPATHY 02/15/2017 EDUARD COLON APRN Ot R06.00 DYSPNEA, UNSPECIFIED 02/15/2017 SHANTI HART, JOSI Vigil Ot M54.12 RADICULOPATHY, CERVICAL REGION 02/15/2017 SIL HART FACC, ALI FACP CCDS Ot E66.09 OTHER OBESITY DUE TO EXCESS CALORIES 02/15/2017 SIL HART FACC, ALI FACP CCDS Ot E78.4 OTHER HYPERLIPIDEMIA 02/15/2017 SIL HART FACC, ALI FACP CCDS Ot G47.33 OBSTRUCTIVE SLEEP APNEA (ADULT) (PEDIATR 02/15/2017 SIL HART FACC, ALI FACP CCDS Ot I10 ESSENTIAL (PRIMARY) HYPERTENSION 02/15/2017 SIL HART FACC, ALI FACP CCDS Ot I27.2 OTHER SECONDARY PULMONARY HYPERTENSION 02/15/2017 SIL HART FACLisbeth, ALI FACP CCDS Ot 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 02/15/2017 JOSI MOSER MD Ot M48.06 SPINAL STENOSIS, LUMBAR REGION 02/15/2017 HERB MANRIQUEZ MD Ot M54.5 LOW BACK PAIN 02/15/2017 HERB MANRIQUEZ MD Ot M50.13 CERVICAL DISC DISORDER W RADICULOPATHY, 02/15/2017 HERB MANRIQUEZ MD Ot M50.13 CERVICAL DISC DISORDER W RADICULOPATHY, 02/15/2017 HERB MANRIQUEZ MD Ot M54.6 PAIN IN THORACIC SPINE 02/15/2017 CHENTE ORTIZP Ot J20.9 ACUTE BRONCHITIS, UNSPECIFIED 03/06/2017 CHENTE ORTIZ SHIPPING AND RECEIVING COORDINATOR Ot J20.9 ACUTE BRONCHITIS, UNSPECIFIED 03/08/2017 SIL HART FACC, ALI FACP CCDS Ot E66.09 OTHER OBESITY DUE TO EXCESS CALORIES 03/08/2017 SIL HART FACC, ALI FACP CCDS Ot E78.4 OTHER HYPERLIPIDEMIA 03/08/2017 SIL HART FACC, ALI FACP CCDS Ot E78.5 HYPERLIPIDEMIA, UNSPECIFIED 03/08/2017 SIL FARFANC, ALI FACP CCDS Ot G47.33 OBSTRUCTIVE SLEEP APNEA (ADULT) (PEDIATR 03/08/2017 SIL HART FACC, ALI FACP CCDS Ot I10 ESSENTIAL (PRIMARY) HYPERTENSION 03/08/2017 SIL FARFANC, ALI FACP CCDS Ot I27.2 OTHER SECONDARY PULMONARY HYPERTENSION 03/08/2017 SIL FARFANC, ALI FACP CCDS Ot 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 03/14/2017 SIL HART FACC, ALI FACP CCDS Ot E66.09 OTHER OBESITY DUE TO EXCESS CALORIES 03/14/2017 SIL HART FACC, ALI FACP CCDS Ot E78.4 OTHER HYPERLIPIDEMIA 03/14/2017 SIL FARFANC, ALI FACP CCDS Ot E78.5 HYPERLIPIDEMIA, UNSPECIFIED 03/14/2017 SIL FARFANC, ALI FACP CCDS Ot G47.33 OBSTRUCTIVE SLEEP APNEA (ADULT) (PEDIATR 03/14/2017 SIL FARFANC, ALI FACP CCDS Ot I10 ESSENTIAL (PRIMARY) HYPERTENSION 03/14/2017 SIL FARFANC, ALI FACP CCDS Ot I27.2 OTHER SECONDARY PULMONARY HYPERTENSION 03/14/2017 SIL HART FACC, ALI FACP CCDS Ot 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 03/15/2017 CHENTE ORTIZ SHIPPING AND RECEIVING COORDINATOR Ot J20.9 ACUTE BRONCHITIS, UNSPECIFIED 03/15/2017 SIL HART FACC, ALI FACP CCDS Ot E66.09 OTHER OBESITY DUE TO EXCESS CALORIES 03/15/2017 SIL FARFANC, ALI FACP CCDS Ot E78.4 OTHER HYPERLIPIDEMIA 03/15/2017 [facility], ALI FACP CCDS Ot E78.5 HYPERLIPIDEMIA, UNSPECIFIED 03/15/2017 [facility], [facility] FACP CCDS Ot G47.33 OBSTRUCTIVE SLEEP APNEA (ADULT) (PEDIATR 03/15/2017 SIL H[facility], ALI FACP CCDS Ot I10 ESSENTIAL (PRIMARY) HYPERTENSION 03/15/2017 [facility]IL [facility], [facility] FACP CCDS Ot I27.2 OTHER SECONDARY PULMONARY HYPERTENSION 03/15/2017 [facility]IL [facility], [facility] FACP CCDS Ot 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 Procedures Results Test Result Range Complete blood count (CBC) with automated white blood cell (WBC) differential - 11/07/16 09:19 Blood leukocytes automated count (number/volume) 7.0 10*3/ uL 4.3-11.0 Blood erythrocytes automated count (number/volume) 5.69 10*6 /uL 4.35-5.85 Venous blood hemoglobin measurement (mass/volume) 17.9 g/dL 13.3-17.7 Blood hematocrit (volume fraction) 52 % 40-54 Automated erythrocyte mean corpuscular volume 91 [foz_us] 80-99 Automated erythrocyte mean corpuscular hemoglobin (mass per erythrocyte) 32 pg 25-34 Automated erythrocyte mean corpuscular hemoglobin concentration measurement ( mass/volume) 35 g/dL 32-36 Automated erythrocyte distribution width ratio 13.1 % 10.0-14.5 Automated blood platelet count (count/volume) 130 10*3/uL 130-400 Automated blood platelet mean volume measurement 12.9 [foz_ us] 7.4-10.4 Automated blood neutrophils/100 leukocytes 68 % 42-75 Automated blood lymphocytes/100 leukocytes 19 % 12-44 Blood monocytes/100 leukocytes 9 % 0-12 Automated blood eosinophils/100 leukocytes 3 % 0-10 Automated blood basophils/100 leukocytes 1 % 0-10 Blood neutrophils automated count (number/volume) 4.8 10*3 1.8-7.8 Blood lymphocytes automated count (number/volume) 1.4 10*3 1.0-4.0 Blood monocytes automated count (number/volume) 0.6 10*3 0.0-1.0 Automated eosinophil count 0.2 10*3/uL 0.0-0.3 Automated blood basophil count (count/volume) 0.1 10*3/uL 0.0-0.1 PT panel in platelet poor plasma by coagulation assay - 11/07/16 09:19 Prothrombin time (PT) in platelet poor plasma by coagulation assay 13.2 s 12.2-14.7 INR in platelet poor plasma or blood by coagulation assay 1.0 0.8-1.4 Activated partial thromboplastin time (aPTT) in platelet poor plasma bycoagulation assay - 11/07/16 09:19 Activated partial thromboplastin time (aPTT) in platelet poor plasma bycoagulation assay 28 s 24-35 [id number] - 12/21/16 13:18 Serum or plasma urea nitrogen measurement (mass/volume) 18 mg/dL 7-18 Serum or plasma creatinine measurement (mass/volume) 1.16 mg /dL 0.60-1.30 Serum or plasma urea nitrogen/creatinine mass ratio 16 NRG Serum or plasma creatinine measurement with calculation of estimated glomerular filtration rate > NRG Automated blood complete blood count (hemogram) panel - 04/10/17 08:45 Blood leukocytes automated count (number/volume) 7.5 10*3/ uL 4.3-11.0 Blood erythrocytes automated count (number/volume) 4.94 10*6 /uL 4.35-5.85 Venous blood hemoglobin measurement (mass/volume) 15.6 g/dL 13.3-17.7 Blood hematocrit (volume fraction) 47 % 40-54 Automated erythrocyte mean corpuscular volume 95 [foz_us] 80-99 Automated erythrocyte mean corpuscular hemoglobin (mass per erythrocyte) 32 pg 25-34 Automated erythrocyte mean corpuscular hemoglobin concentration measurement ( mass/volume) 33 g/dL 32-36 Automated erythrocyte distribution width ratio 14.5 % 10.0-14.5 Automated blood platelet count (count/volume) 136 10*3/uL 130-400 Automated blood platelet mean volume measurement 13.2 [foz_ us] 7.4-10.4 PT panel in platelet poor plasma by coagulation assay - 04/10/17 08:45 Prothrombin time (PT) in platelet poor plasma by coagulation assay 14.3 s 12.2-14.7 INR in platelet poor plasma or blood by coagulation assay 1.1 0.8-1.4 Activated partial thromboplastin time (aPTT) in platelet poor plasma bycoagulation assay - 04/10/17 08:45 Activated partial thromboplastin time (aPTT) in platelet poor plasma bycoagulation assay 28 s 24-35 Comprehensive metabolic panel - 04/10/17 08:45 Serum or plasma sodium measurement (moles/volume) 144 mmol/ L 135-145 Serum or plasma potassium measurement (moles/volume) 3.9 mmol/L 3.6-5.0 Serum or plasma chloride measurement (moles/volume) 109 mmol /L 98-107 Carbon dioxide 25 mmol/L 21-32 Serum or plasma anion gap determination (moles/volume) 10 mmol/L 5-14 Serum or plasma urea nitrogen measurement (mass/volume) 19 mg/dL 7-18 Serum or plasma creatinine measurement (mass/volume) 1.21 mg /dL 0.60-1.30 Serum or plasma urea nitrogen/creatinine mass ratio 16 0-20 Serum or plasma creatinine measurement with calculation of estimated glomerular filtration rate 59 NRG Serum or plasma glucose measurement (mass/volume) 114 mg/dL 70-105 Serum or plasma calcium measurement (mass/volume) 9.5 mg/dL 8.5-10.1 Serum or plasma total bilirubin measurement (mass/volume) 1.4 mg/dL 0.1-1.0 Serum or plasma alkaline phosphatase measurement (enzymatic activity/volume) 84 U/L 40-136 Serum or plasma aspartate aminotransferase measurement (enzymatic activity/ volume) 49 U/L 5-34 Serum or plasma alanine aminotransferase measurement (enzymatic activity/volume ) 76 U/L 0-55 Serum or plasma protein measurement (mass/volume) 6.8 g/dL 6.4-8.2 Serum or plasma albumin measurement (mass/volume) 4.3 g/dL 3.2-4.5 Lipid 1996 panel - 04/10/17 08:45 Serum or plasma triglyceride measurement (mass/volume) 68 mg /dL <150 Serum or plasma cholesterol measurement (mass/volume) 118 mg /dL < 200 Serum or plasma cholesterol in HDL measurement (mass/volume) 41 mg/dL 40-60 Cholesterol in LDL [mass/volume] in serum or plasma by direct assay 64 mg/dL 1-129 Serum or plasma cholesterol in VLDL measurement (mass/volume) 14 mg/dL 5-40 THYROID STIMULATING HORMONE - 04/10/17 08:45 THYROID STIMULATING HORMONE 4.43 u[iU]/mL 0.35-4.94 Methicillin resistant Staphylococcus aureus (MRSA) screening culture - 08:45 Methicillin resistant Staphylococcus aureus (MRSA) screening culture NEG NRG Encounters ACCT No. Visit Date/Time Discharge Status Pt. Type Provider Facility Loc./Unit Complaint [id number] 11/07/2016 08:38:00 2016 16:15:00 DIS Outpatient JOSI MOSER MD [facility] RAD STENOSIS,RADICULOPATHY [id number] 04/28/2016 09:45:00 2015 00:01:00 DIS Outpatient EDUARD COLON APRN [facility] CARD DYSPNEA [id number] 09/08/2015 15:26:00 2014 23:59:59 CLS Outpatient DELANO GARCIA DO [facility] RT ASTHMA, DYSPNEA, FATIGUE, ALLERGIES [id number] 07/12/2015 08:04:00 2014 23:59:59 CLS Outpatient CLAYTON HERNANDEZ [facility] CARD PVC'S [id number] 12/11/2014 09:00:00 2014 23:59:59 CLS Outpatient TAINA HART, ASHLEY Singh [facility] SDC GERD,ABD PAIN/FOLLOW UP POLYPS [id number] 12/04/2014 08:51:00 2014 23:59:59 CLS Outpatient CHANELL DOLL MD [facility] RAD ABD PAIN, BLOATING [id number] 02/24/2014 10:24:00 2013 11:56:00 DIS Emergency LIE RIOS MD [facility] ER CONSTIPATION/RECTAL BLEEDING [id number] 12/31/2013 13:17:00 2013 23:59:59 CLS Outpatient CHANELL DOLL MD [facility] CARD CHEST PAIN,SOB [id number] 12/30/2013 15:56:00 2013 23:59:59 CLS Outpatient CHANELL DOLL MD [facility] RAD POS D DIMER [id number] 12/30/2013 06:43:00 2013 23:59:59 CLS Outpatient CHANELL DOLL MD [facility] RAD CP,SOB [id number] 12/25/2013 12:19:00 2013 23:59:59 CLS Outpatient CHANELL DOLL MD [facility] RAD POS D DIMER,KIMBERLEE EDEMA [id number] 07/09/2013 08:13:00 2012 23:59:59 CLS Outpatient CHANELL DOLL MD [facility] RT SOB [id number] 02/10/2013 09:27:00 2012 00:01:00 DIS Outpatient RODNEY ROBERTS MD [facility] CARD PALPITATIONS, PVC [id number] 05/01/2013 20:13:00 2012 06:45:00 DIS Outpatient MERE TO MD [facility] SLEEP HAYES [id number] 04/10/2017 08:06:00 ACT Outpatient SIL HART [facility], ALI FACP CCDS [facility] CATH HTN,PAF [id number] 04/09/2017 11:39:00 ACT Outpatient PHIL GRANADOS APRN [facility] CARD ARRHYTHMIA,SOB [id number] 02/15/2017 08:24:00 ACT Outpatient SIL HART [facility], ALI FACP CCDS [facility] CARD I10,I47.2,I27.2 [id number] 01/27/2017 11:47:00 ACT Outpatient CHENTE ORTIZ [facility] RAD ACUTE BRONCHITIS [id number] 01/09/2017 09:39:00 ACT Outpatient HERB MANRIQUEZ MD [facility] RAD PAIN, CERVICAL DISC DISODER [id number] 12/21/2016 13:06:00 ACT Outpatient HERB MANRIQUEZ MD [facility] RAD LOW BACK PAIN [id number] 12/18/2016 13:20:00 ACT Outpatient HERB MANRIQUEZ MD [facility] CARD DISC DISORDER [id number] 11/15/2016 09:29:00 ACT Outpatient JOSI MOSER MD [facility] RAD STENOSIS [id number] 11/14/2016 11:53:00 ACT Outpatient SIL HART FACC, BECKY DIAZ CCDS [facility] CARD HTN,HAYES,NSVT,PHT,OBESITY [id number] 10/17/2016 13:46:00 ACT Outpatient JOSI MOSER MD [facility] RAD CERVICAL RADICULOPATHY [id number] 07/05/2016 09:15:00 PEN Preadmit EDUARD COLON APRN [facility] CARD DYSPNEA [id number] 05/10/2016 07:46:00 ACT Outpatient CLAYTON HERNANDEZ [facility] CARD DILATED CARDIOMYOPATHY [id number] 04/11/2016 07:34:00 Document Registration [id number] 04/04/2016 14:48:00 ACT Outpatient EDUARD COLON APRN [facility] RAD FATIGUE,DYSPNEA [id number] 12/10/2014 08:10:00 Document Registration [id number] 05/12/2013 09:00:00 Document Registration [id number] 07/24/2012 10:51:00 Document Registration [id number] 07/19/2012 09:58:00 Document Registration [id number] 07/17/2012 06:20:00 Document Registration [id number] 01/05/2012 05:40:00 Document Registration [id number] 12/29/2011 12:52:00 Document Registration [id number] 07/08/2010 07:03:00 Document Registration
== END ==
LOC: CATH 08:06
PROVIDERS: ATTEND Internal Medicine Cardiovascular Disease
DX: I48.0 Paroxysmal atrial fibrillation (principal); R06.02 Shortness of breath; R53.83 Other fatigue; I27.2 Other secondary pulmonary hypertension; E78.5 Hyperlipidemia, unspecified; G47.33 Obstructive sleep apnea (adult) (pediatric); N18.3 Chronic kidney disease, stage 3 (moderate); Z79.01 Long term (current) use of anticoagulants; Z79.899 Other long term (current) drug therapy
CPT/HCPCS: 36415; 80053; 80061; 84443; 85027; 85610; 85730; 87081; 92960; 93005; 93312; 93320; 93325

== ENCOUNTER → 2017-04-11 | Outpatient (CLI) | payer MEDICARE, OTHER ==
[~2017-04-11] MED LIST changes: -APIXABAN 5 MG (ELIQUIS) TABLET PO NR; -LIDOCAINE 2% VISCOUS 15 ML UDC ONE; -LIDOCAINE 2% VISCOUS 15 ML UDC PO ONE; -MIDAZOLAM 2 MG/2 ML (VERSED) VIAL ONE; -NS IV 1000 ML 1,000 ML IV SCH; -NS IV 1000 ML 1,000 ML ONE; -fentaNYL INJECTION 100 MCG/2 ML AMP ONE; -proPOfol 200 MG/20 ML (DIPRIVAN) VIAL IV ONE
--- NOTE | 2017-04-11 09:45 | Diagnostic Imaging Report ---
EXAMINATION: PA and lateral views of the chest. INDICATION: Shortness of breath. COMPARISON: 01/27/2017. FINDINGS: There is mild bibasilar infiltrate or atelectasis. Mild prominence of the interstitial markings is also seen. The heart size is slightly enlarged. Bilateral small effusions are suggested. No pneumothorax. The mediastinum and balbir appear unremarkable. IMPRESSION: Cardiomegaly with mild pulmonary vascular congestion. There is also suggestion of bilateral small effusions with adjacent small bibasilar atelectasis or infiltrates. Dictated by: Dictated on workstation # [id number]
== END ==
LOC: RAD 09:10
PROVIDERS: ATTEND Nurse Practitioner Family
DX: I51.7 Cardiomegaly (principal); R06.02 Shortness of breath
CPT/HCPCS: 71020

== ENCOUNTER → 2017-04-12 | Outpatient (CLI) | payer MEDICARE, OTHER ==
[~2017-04-12] MED LIST changes: +CATHETER FLUSH 10 ML SYR IV PRN; +IOHEXOL 350 MG/ML 100 ML (OMNIPAQUE 350) VIAL IV ONE; +NS 100 ML (IVPB) BAG IV ONE
== END ==
DX: N20.0 Calculus of kidney (principal); K57.30 Diverticulosis of large intestine without perforation or abscess without bleeding; J90 Pleural effusion, not elsewhere classified; R10.32 Left lower quadrant pain; R06.02 Shortness of breath; R14.0 Abdominal distension (gaseous)

== ENCOUNTER 2017-04-16 11:43 | Outpatient (CLI) | payer MEDICARE, OTHER ==
[~2017-04-16] VITALS: Ht 175.3 cm; Wt 106.6 kg
[~2017-04-16 11:43] MED LIST changes: -CATHETER FLUSH 10 ML SYR IV PRN; -IOHEXOL 350 MG/ML 100 ML (OMNIPAQUE 350) VIAL IV ONE; -NS 100 ML (IVPB) BAG IV ONE
== END 2017-04-16 16:02 ==
LOC: PREOP 11:43
PROVIDERS: ATTEND Surgery
DX: Z01.818 Encounter for other preprocedural examination (principal); K21.9 Gastro-esophageal reflux disease without esophagitis; R14.0 Abdominal distension (gaseous)

== ENCOUNTER 2017-04-18 07:31 | Day surgery (SDC) | payer MEDICARE, OTHER ==
[~2017-04-18] VITALS: Ht 175.3 cm; Wt 106.6 kg
--- OUTSIDE RECORDS SUMMARY | 2017-04-18 07:37 | XMS REPORT | Continuity of Care Document ---
Author Author [facility] Organization [facility] Address Unknown Phone Unavailable Allergies Active Description Code Type Severity Reaction Onset Reported/Identified Relationship to Patient Clinical Status Yes No Known Drug Allergies [id number] Drug Allergy Unknown N/ A 11/07/2016 Medications [...] NOS 07/24/2012 Ot 414.01 CORONARY ATHEROSCLEROSIS OF [place] CORON 07/24/2012 Ot 427.69 PREMATURE BEATS NEC [...] 786.50 12/04/2014 LAVON HART, CHANELL M Ot 786.05 [...] 227.0 01/26/2015 Ot 227.0 08/04/2015 CLAYTON HERNANDEZ MANAGER POST Ot 427.0 08/04/2015 CLAYTON HERNANDEZ MANAGER POST Ot 427.69 08/20/2015 CLAYTON HERNANDEZ L MANAGER POST Ot 427.0 08/20/2015 CLAYTON HERNANDEZ MANAGER POST Ot 427.69 09/29/2015 DELANO GARCIA DO Ot [...] PROFILE, ABNORMAL 04/04/2016 CHANELL DOLL MD Ot 790.92 COAGULATION PROFILE, ABNORMAL 04/04/2016 CHANELL DOLL MD Ot 787.3 FLATUL/ERUCTAT/GAS PAIN 04/04/2016 CHANELL DOLL MD Ot 789.00 ABDOMINAL PAIN, UNSPECIFIED SITE 04/04/2016 Ot 227.0 BENIGN NEOPLASM ADRENAL 04/04/2016 BAIMA, CLAYTON L MANAGER POST Ot 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 04/04/2016 PEPECLAYTON DOLL MANAGER POST Ot 427.69 PREMATURE BEATS NEC 04/04/2016 DELANO GARCIA DO Ot J45.909 UNSPECIFIED ASTHMA, UNCOMPLICATED 04/04/2016 DELANO GARCIA DO Ot R06.00 DYSPNEA, UNSPECIFIED 04/04/2016 JOSEDELANO GUERRA DO Ot R53.83 OTHER FATIGUE 04/06/2016 ISAIAHEDUARD QURESHI PROJECT PRODUCTION ENGINEER Ot R06.00 DYSPNEA, UNSPECIFIED 04/07/2016 ANTONIO COLONINE Shelia PROJECT PRODUCTION ENGINEER Ot G47.33 OBSTRUCTIVE SLEEP APNEA (ADULT) ( PEDIATR 04/07/2016 ANTONIO COLONINE Shelia PROJECT PRODUCTION ENGINEER Ot J30.2 OTHER SEASONAL ALLERGIC RHINITIS 04/07/2016 ISAIAHEDUARD QURESHI PROJECT PRODUCTION ENGINEER Ot R06.00 DYSPNEA, UNSPECIFIED 04/07/2016 EDUARD COLON PROJECT PRODUCTION ENGINEER Ot R53.83 OTHER FATIGUE 04/10/2016 EDUARD COLON PROJECT PRODUCTION ENGINEER Ot R06.00 DYSPNEA, UNSPECIFIED 04/12/2016 Ot E78.4 OTHER HYPERLIPIDEMIA 04/12/2016 Ot I10 ESSENTIAL (PRIMARY) HYPERTENSION 04/12/2016 Ot I25.10 ATHSCL HEART DISEASE OF [place] CORONARY 04/12/2016 Ot I49.3 VENTRICULAR PREMATURE DEPOLARIZATION 04/12/2016 Ot R00.2 PALPITATIONS 04/12/2016 Ot R06.02 SHORTNESS OF BREATH 04/12/2016 Ot R42 DIZZINESS AND GIDDINESS 04/26/2016 EDUARD COLON PROJECT PRODUCTION ENGINEER Ot G47.33 OBSTRUCTIVE SLEEP APNEA (ADULT) ( PEDIATR 04/26/2016 EDUARD COLON PROJECT PRODUCTION ENGINEER Ot J30.2 OTHER SEASONAL ALLERGIC RHINITIS 04/26/2016 ANTONIO COLONINE Shelia PROJECT PRODUCTION ENGINEER Ot R06.00 DYSPNEA, UNSPECIFIED 04/26/2016 ISAIAHANTONIO QURESHIINE Shelia PROJECT PRODUCTION ENGINEER Ot R53.83 OTHER FATIGUE 05/01/2016 ANTONIO COLONINE Shelia PROJECT PRODUCTION ENGINEER Ot G47.33 OBSTRUCTIVE SLEEP APNEA (ADULT) ( PEDIATR 05/01/2016 ANTONIO COLONINE Shelia PROJECT PRODUCTION ENGINEER Ot J30.2 OTHER SEASONAL ALLERGIC RHINITIS 05/01/2016 ISAIAHANTONIO QURESHIINE Shelia PROJECT PRODUCTION ENGINEER Ot R06.00 DYSPNEA, UNSPECIFIED 05/01/2016 ISAIAHANTONIO QURESHIINE Shelia PROJECT PRODUCTION ENGINEER Ot R53.83 OTHER FATIGUE 05/09/2016 Ot E78.4 OTHER HYPERLIPIDEMIA 05/09/2016 Ot I10 ESSENTIAL (PRIMARY) HYPERTENSION 05/09/2016 Ot I25.10 ATHSCL HEART DISEASE OF [place] CORONARY 05/09/2016 Ot I49.3 VENTRICULAR PREMATURE DEPOLARIZATION 05/09/2016 Ot R00.2 PALPITATIONS 05/09/2016 Ot R06.02 SHORTNESS OF BREATH 05/09/2016 Ot R42 DIZZINESS AND GIDDINESS 05/10/2016 Ot E78.4 OTHER HYPERLIPIDEMIA 05/10/2016 Ot I10 ESSENTIAL (PRIMARY) HYPERTENSION 05/10/2016 Ot I25.10 ATHSCL HEART DISEASE OF [place] CORONARY 05/10/2016 Ot I49.3 VENTRICULAR PREMATURE DEPOLARIZATION 05/10/2016 Ot R00.2 PALPITATIONS 05/10/2016 Ot R06.02 SHORTNESS OF BREATH 05/10/2016 Ot R42 DIZZINESS AND GIDDINESS 05/10/2016 CLAYTON HERNANDEZ MANAGER POST Ot I10 ESSENTIAL (PRIMARY) HYPERTENSION 05/11/2016 CLAYTON HERNANDEZ MANAGER POST Ot I10 ESSENTIAL (PRIMARY) HYPERTENSION 05/11/2016 EDUARD COLON APRN Ot R06.00 DYSPNEA, UNSPECIFIED 05/16/2016 EDUARD COLON PROJECT PRODUCTION ENGINEER Ot R06.00 DYSPNEA, UNSPECIFIED 06/05/2016 CLAYTON HERNANDEZ MANAGER POST Ot I42.0 DILATED CARDIOMYOPATHY 06/13/2016 CLAYTON HERNANDEZ MANAGER POST Ot I42.0 DILATED CARDIOMYOPATHY 07/04/2016 EDUARD COLON [...] 10/17/2016 Ot 227.0 BENIGN NEOPLASM ADRENAL 10/17/2016 CALYTON HERNANDEZ MANAGER POST Ot 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 10/17/2016 CLAYTON HERNANDEZ MANAGER POST Ot 427.69 PREMATURE BEATS NEC 10/17/2016 DELANO [...] 10/17/2016 Ot I25.10 ATHSCL HEART DISEASE OF [place] CORONARY 10/17/2016 Ot I49.3 VENTRICULAR PREMATURE DEPOLARIZATION 10/17/2016 Ot R00.2 PALPITATIONS 10/17/2016 Ot R06.02 SHORTNESS OF BREATH 10/17/2016 Ot R42 DIZZINESS AND GIDDINESS 10/17/2016 CLAYTON HERNANDEZ MANAGER POST Ot I42.0 DILATED CARDIOMYOPATHY 10/17/2016 EDUARD COLON APRN Ot R06.00 DYSPNEA, UNSPECIFIED 10/19/2016 SHANTI HART, JOSI Vigil Ot M54.12 RADICULOPATHY, CERVICAL REGION 10/19/2016 SHANTI HART, JOSI Vigil Ot M54.12 RADICULOPATHY, CERVICAL REGION 11/06/2016 Ot 227.0 BENIGN NEOPLASM ADRENAL 11/06/2016 CLAYTON HERNANDEZ MANAGER POST Ot 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 11/06/2016 CLAYTON HERNANDEZ MANAGER POST Ot 427.69 PREMATURE BEATS NEC 11/06/2016 DELANO [...] 11/06/2016 Ot I25.10 ATHSCL HEART DISEASE OF [place] CORONARY 11/06/2016 Ot I49.3 VENTRICULAR PREMATURE DEPOLARIZATION 11/06/2016 Ot R00.2 PALPITATIONS 11/06/2016 Ot R06.02 SHORTNESS OF BREATH 11/06/2016 Ot R42 DIZZINESS AND GIDDINESS 11/06/2016 CLAYTON HERNANDEZ MANAGER POST Ot I42.0 DILATED CARDIOMYOPATHY 11/06/2016 EDUARD COLON APRN Ot R06.00 DYSPNEA, UNSPECIFIED 11/06/2016 SHANTI HART, JOSI Vigil Ot M54.12 RADICULOPATHY, CERVICAL REGION 11/07/2016 Ot 227.0 BENIGN NEOPLASM ADRENAL 11/07/2016 PEPECLAYTON DOLL Natasha MANAGER POST Ot 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 11/07/2016 DAVID CLAYTON Natasha MANAGER POST Ot 427.69 PREMATURE BEATS NEC 11/07/2016 DELANO [...] 11/07/2016 Ot I25.10 ATHSCL HEART DISEASE OF [place] CORONARY 11/07/2016 Ot I49.3 VENTRICULAR PREMATURE DEPOLARIZATION 11/07/2016 Ot R00.2 PALPITATIONS 11/07/2016 Ot R06.02 SHORTNESS OF BREATH 11/07/2016 Ot R42 DIZZINESS AND GIDDINESS 11/07/2016 PEPESHARMILA CLAYTON Natasha MANAGER POST Ot I42.0 DILATED CARDIOMYOPATHY 11/07/2016 EDUARD COLON APRN Ot R06.00 DYSPNEA, UNSPECIFIED 11/07/2016 JOSI MOSER MD Ot M54.12 RADICULOPATHY, CERVICAL REGION 11/07/2016 Ot 427.69 PREMATURE BEATS NEC 11/07/2016 Ot 785.1 PALPITATIONS 11/07/2016 EDUARD COLON APRN Ot R06.00 DYSPNEA, UNSPECIFIED 11/07/2016 JOSI MOSER MD Ot M48.02 SPINAL STENOSIS, [...] CCDS Ot E78.4 OTHER HYPERLIPIDEMIA 12/12/2016 SIL HATR FACC, ALI FACP CCDS Ot G47.33 OBSTRUCTIVE [...] 227.0 BENIGN NEOPLASM ADRENAL 02/14/2017 CLAYTON HERNANDEZ MANAGER POST Ot 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 02/14/2017 CLAYTON HERNANDEZ MANAGER POST Ot 427.69 PREMATURE BEATS NEC 02/14/2017 DELANO [...] 02/14/2017 Ot I25.10 ATHSCL HEART DISEASE OF [place] CORONARY 02/14/2017 Ot I49.3 VENTRICULAR PREMATURE DEPOLARIZATION [...] Ot I10 ESSENTIAL (PRIMARY) HYPERTENSION 02/14/2017 SIL HATR FACC, ALI FACP CCDS Ot I27.2 OTHER [...] PAIN IN THORACIC SPINE 02/14/2017 CHENTE ORTIZ MANAGER POST Ot J20.9 ACUTE BRONCHITIS, UNSPECIFIED 02/14/2017 SIL [...] 227.0 BENIGN NEOPLASM ADRENAL 02/15/2017 CLAYTON HERNANDEZ MANAGER POST Ot 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 02/15/2017 CLAYTON HERNANDEZ MANAGER POST Ot 427.69 PREMATURE BEATS NEC 02/15/2017 DELANO [...] 02/15/2017 Ot I25.10 ATHSCL HEART DISEASE OF [place] CORONARY 02/15/2017 Ot I49.3 VENTRICULAR PREMATURE DEPOLARIZATION 02/15/2017 Ot R00.2 PALPITATIONS 02/15/2017 Ot R06.02 SHORTNESS OF BREATH 02/15/2017 Ot R42 DIZZINESS AND GIDDINESS 02/15/2017 CLAYTON HERNANDEZ Ot I42.0 DILATED CARDIOMYOPATHY 02/15/2017 EDUARD CLOON APRN Ot R06.00 DYSPNEA, UNSPECIFIED 02/15/2017 SHANTI [...] J20.9 ACUTE BRONCHITIS, UNSPECIFIED 03/06/2017 CHENTE ORTIZ MANAGER POST Ot J20.9 ACUTE BRONCHITIS, UNSPECIFIED 03/08/2017 SIL [...] Ot 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 03/15/2017 CHENTE ORTIZ MANAGER POST Ot J20.9 ACUTE BRONCHITIS, UNSPECIFIED 03/15/2017 SIL HART FACC, ALI FACP CCDS Ot E66.09 OTHER OBESITY DUE TO EXCESS CALORIES 03/15/2017 SIL FARFANC, ALI FACP CCDS Ot E78.4 OTHER HYPERLIPIDEMIA 03/15/2017 SIL HART [facility], BECKY FACP CCDS Ot E78.5 HYPERLIPIDEMIA, UNSPECIFIED 03/15/2017 SIL HART [facility], BECKY FACP CCDS Ot G47.33 OBSTRUCTIVE SLEEP APNEA (ADULT) (PEDIATR 03/15/2017 SIL HART [facility], ALI FACP CCDS Ot I10 ESSENTIAL (PRIMARY) HYPERTENSION 03/15/2017 SIL HART [facility], BECKY FACP CCDS Ot I27.2 OTHER SECONDARY PULMONARY HYPERTENSION 03/15/2017 SLI HART [facility], BECKY FACP CCDS Ot 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 04/13/2017 PILAR MIRANDA MD, Ot J90 PLEURAL EFFUSION, NOT ELSEWHERE CLASSIFI 04/13/2017 PILAR MIRANDA MD, Ot K57.30 DVRTCLOS OF LG INT W/O PERFORATION OR AB 04/13/2017 PILAR MIRANDA MD, Ot N20.0 CALCULUS OF KIDNEY 04/13/2017 PILAR MIRANDA MD, Ot R06.02 SHORTNESS OF BREATH 04/13/2017 PILAR MIRANDA MD, Ot R10.32 LEFT LOWER QUADRANT PAIN 04/13/2017 PILAR MIRANDA MD, Ot R14.0 ABDOMINAL DISTENSION (GASEOUS) Procedures Results Test Result Range Complete blood [...] poor plasma bycoagulation assay 28 s 24-35 [id number] - 12/21/16 13:18 Serum or plasma urea [...] Status Pt. Type Provider Facility Loc./Unit Complaint [id number] 11/07/2016 08:38:00 2016 16:15:00 DIS Outpatient SHANTI HART, JOSI Vigil [facility] RAD STENOSIS,RADICULOPATHY [id number] 04/28/2016 09:45:00 2015 00:01:00 DIS Outpatient EDUARD COLON APRN [facility] CARD DYSPNEA [id number] 09/08/2015 15:26:00 2014 23:59:59 CLS Outpatient DELANO GARCIA DO [facility] RT ASTHMA, DYSPNEA, FATIGUE, ALLERGIES [id number] 07/12/2015 08:04:00 2014 23:59:59 CLS Outpatient CLAYTON HERNANDEZ [facility] CARD PVC'S [id number] 12/11/2014 09:00:00 2014 23:59:59 CLS Outpatient TAINA HART, ASHLEY Singh [facility] SDC GERD,ABD PAIN/FOLLOW UP POLYPS [id number] 12/04/2014 08:51:00 2014 23:59:59 CLS Outpatient CHANELL DOLL MD [facility] RAD ABD PAIN, BLOATING [id number] 02/24/2014 10:24:00 2013 11:56:00 DIS Emergency LEI RIOS MD [facility] ER CONSTIPATION/RECTAL BLEEDING [id number] 12/31/2013 13:17:00 2013 23:59:59 CLS Outpatient CHANELL DOLL MD [facility] CARD CHEST PAIN,SOB [id number] 12/30/2013 15:56:00 2013 23:59:59 CLS Outpatient CHANELL DOLL MD [facility] RAD POS D DIMER [id number] 12/30/2013 06:43:00 2013 23:59:59 CLS Outpatient CHANELL DOLL MD [facility] RAD CP,SOB [id number] 12/25/2013 12:19:00 2013 23:59:59 CLS Outpatient CHANELL DOLL MD [facility] RAD POS D DIMER,KIMBERLEE EDEMA [id number] 07/09/2013 08:13:00 2012 23:59:59 CLS Outpatient CHANELL DOLL MD [facility] RT SOB [id number] 02/10/2013 09:27:00 2012 00:01:00 DIS Outpatient ARMANDO HART, RODNEY Vigil [facility] CARD PALPITATIONS, PVC [id number] 05/01/2013 20:13:00 2012 06:45:00 DIS Outpatient ZULEIKA HART, MERE Galindo [facility] SLEEP HAYES [id number] 04/12/2017 13:24:00 ACT Outpatient PILAR MIRANDA MD [facility] RAD SOB,ABD PAIN,BLOATING [id number] 04/11/2017 09:10:00 ACT Outpatient PHIL GRANADOS APRN [facility] RAD SOB [id number] 04/10/2017 08:06:00 ACT Outpatient SIL HART FACC, BECKY FARFANP CCDS [facility] CATH HTN,PAF [id number] 04/09/2017 11:39:00 ACT Outpatient PHIL GRANADOS APRN [facility] CARD ARRHYTHMIA,SOB [id number] 02/15/2017 08:24:00 ACT Outpatient SIL HART FACLisbeth, BECKY DIAZ CCDS [facility] CARD I10,I47.2,I27.2 [id number] 01/27/2017 11:47:00 ACT Outpatient CHENTE ORTIZ [facility] ACUTE BRONCHITIS [id number] 01/09/2017 09:39:00 ACT Outpatient HERB MANRIQUEZ MD [facility] PAIN, CERVICAL DISC DISODER [id number] 12/21/2016 13:06:00 ACT Outpatient HERB MANRIQUEZ MD [facility] LOW BACK PAIN [id number] 12/18/2016 13:20:00 ACT Outpatient HERB MANRIQUEZ MD [facility] DISC DISORDER [id number] 11/15/2016 09:29:00 ACT Outpatient JOSI MOSER MD [facility] RAD STENOSIS [id number] 11/14/2016 11:53:00 ACT Outpatient [facility] CARELisbeth, BECKY DIAZ CCDS [facility] HTN,HAYES,NSVT,PHT,OBESITY [id number] 10/17/2016 13:46:00 ACT Outpatient JOSI MOSER MD [facility] CERVICAL RADICULOPATHY [id number] 07/05/2016 09:15:00 PEN Preadmit EDUARD COLON APRN [facility] CARD DYSPNEA [id number] 05/10/2016 07:46:00 ACT Outpatient CLAYTON HERNANDEZ [facility] CARD DILATED CARDIOMYOPATHY [id number] 04/11/2016 07:34:00 Document Registration [id number] 04/04/2016 14:48:00 ACT Outpatient EDUARD COLON APRN [facility] FATIGUE,DYSPNEA [id number] 12/10/2014 08:10:00 Document Registration [id number] 05/12/2013 09:00:00 Document Registration [id number] 07/24/2012 10:51:00 Document Registration [id number] 07/19/2012 09:58:00 Document Registration [id number] 07/17/2012 06:20:00 Document Registration [id number] 01/05/2012 05:40:00 Document Registration [id number] 12/29/2011 12:52:00 Document Registration [id number] 07/08/2010 07:03:00 Document Registration
[2017-04-18] MEDS ORDERED: NS IV 500 ML 500 ML IV SCH ×2 (08:00→12:30)
[2017-04-18] MEDS ORDERED: HURRICAINE EXT TUBE (BENZOCAINE) XX PRN (08:00)
[2017-04-18] MEDS ORDERED: NALOXONE 0.4 MG/ML 1 ML (NARCAN) VIAL IVP PRN (08:00)
[2017-04-18] MEDS ORDERED: FLUMAZENIL (ROMAZICON) 0.1 MG/ML 5 ML VIAL INJ PRN (08:00)
[2017-04-18 08:10] VITALS: BP 148/87
[2017-04-18] MEDS ORDERED: VIT-8 PO (08:24)
[2017-04-18] MEDS ORDERED: APIX5TAB PO (08:24)
[2017-04-18] MEDS ORDERED: POTA10TA6 PO (08:24)
[2017-04-18] MEDS ORDERED: MONT10TA21 PO (08:24)
[2017-04-18] MEDS ORDERED: ALPR1TAB2 PO (08:24)
[2017-04-18] MEDS ORDERED: FURO-125 PO (08:24)
--- NOTE | 2017-04-18 09:30 | Conscious Sedation/ASA ---
Conscious Sedation Pre-Proced Time Reviewed: 09:10 ASA Class: 2 Airway Mallampati Classification: ([place] appropriate class) I. II. III, IV Lungs Heart ASA score ASA 1: a normal healthy patient ASA 2: a patient with a mild systemic disease (mid diabetes, controlled hypertension, obesity ASA 3: a patient with a severe systemic disease that limits activity (angina , COPD, prior Myocardial infarction) ASA 4: a patient with an incapacitating disease that is a constant threat to life (CHF, renal failure) ASA 5: a moribund patient not expected to survive 24 hrs. (ruptured aneurysm) ASA 6: a declared brain patient whose organs are being harvested. For emergent operations, add the letter E after the classification Grade 3 Sedation Plan: Analgesia, Amnesia, Plan communicated to team members, Discussed options with patient/fam, Discussed risks with patient/fam Note The patient is an appropriate candidate to undergo the planned procedure, sedation, and anesthesia. The patient immediately re-assessed prior to indication. PILAR MIRANDA MD Apr 18, 2017 9:30 am
--- NOTE | 2017-04-18 09:31 | Progress Note-Pre Operative ---
Pre-Operative Progress Note H&P Reviewed The H&P was reviewed, patient examined and no changes noted. Date Seen by Provider: Apr 18, 2017 Time Seen by Provider: 09:10 Date H&P Reviewed: Apr 18, 2017 Time H&P Reviewed: 09:10 Pre-Operative Diagnosis: abdominal distention and pain, GERD PILAR MIRANDA MD Apr 18, 2017 9:31 am
[2017-04-18] MEDS ORDERED: morphine INJ 10 MG/ML 1ML (SYR OR VIAL) IV PRN (09:45)
[2017-04-18] MEDS ORDERED: ACETAMINOPHEN 325 MG TABLET/CAPLET (TYLENOL) PO PRN (09:45)
[2017-04-18] MEDS ORDERED: HYDROcodone/APAP 5 MG/325 MG (LORTAB) TAB PO PRN (09:45)
[2017-04-18] MEDS ORDERED: ONDANSETRON 4 MG/2 ML (SDV) Z0FRAN IV PRN (09:45)
[2017-04-18] MEDS ORDERED: LIDOCAINE JELLY 2% (XYLOCAINE) 5 ML TUBE ONE (11:18)
[2017-04-18] MEDS ORDERED: fentaNYL INJECTION 100 MCG/2 ML AMP ONE ×2 (11:18)
[2017-04-18] MEDS ORDERED: MIDAZOLAM 2 MG/2 ML (VERSED) VIAL ONE ×3 (11:19)
[2017-04-18] MEDS ORDERED: HURRICAINE EXT TUBE (BENZOCAINE) ONE (11:19)
[2017-04-18] MEDS: fentaNYL INJECTION 100 MCG/2 ML AMP IVP PRN ×4 (11:25→11:55)
[2017-04-18] MEDS: LIDOCAINE JELLY 2% (XYLOCAINE) 5 ML TUBE MM PRN ×2 (11:30→11:47)
[2017-04-18] MEDS: MIDAZOLAM 2 MG/2 ML (VERSED) VIAL IVP PRN ×3 (11:32→11:47)
--- NOTE | 2017-04-18 12:08 | Progress Note-Post Operative ---
Post-Operative Progess Note Surgeon (s)/Home Care Consultant (s) Surgeon PILAR MIRANDA MD Home Care Consultant: none Pre-Operative Diagnosis abdominal distention and pain, GERD Post-Operative Diagnosis reflux esophagitis(class B), small HH(1cm), moderate gastritis. chronic stage 2 ext and int hemorrhoids, moderate sigmoid diverticulosis. Procedure & Operative Findings Date of Procedure 04/18/17 Procedure Performed/Findings EGD with bx. Colonoscopy. Anesthesia Type CS Estimated Blood Loss Estimated blood loss (mL): minimal Specimens/Packing Specimens Removed antrum, GE panchoxPILAR Mcpherson MD Apr 18, 2017 12:08 pm
[2017-04-18] MEDS ORDERED: METO5TAB75 PO (12:11)
[2017-04-18] MEDS ORDERED: SUCR1TAB36 PO (12:11)
--- NOTE | 2017-04-18 12:12 | Discharge Inst-Surgical ---
D/C Lap Instructions-KIDFreeman New, Converted, or Re-Newed RX: RX on Chart Follow Up PRN Activity as tolerated High Fiber Diet 25g or more per day Avoid Alcohol, Caffeine, Spicy [place] and Acid foods. Drink 64 fluid oz or more of fluids per day. Symptoms to Report: Fever over 101 degree F, Nausea/Vomiting If any problems/questions: Contact your physician or go to Emergency Room PILAR MIRANDA MD Apr 18, 2017 12:11 pm
[2017-04-18 12:25] VITALS: BP 145/82
[2017-04-18 12:55] VITALS: BP 161/96
[2017-04-18 13:15] VITALS: BP 161/96
== END 2017-04-18 13:17 | disposition home or self-care (01) ==
LOC: ENDO 07:31
PROVIDERS: ATTEND Surgery
DX: K21.0 Gastro-esophageal reflux disease with esophagitis (principal); K64.2 Third degree hemorrhoids; K57.30 Diverticulosis of large intestine without perforation or abscess without bleeding; K29.70 Gastritis, unspecified, without bleeding; K44.9 Diaphragmatic hernia without obstruction or gangrene

== ENCOUNTER 2017-06-08 22:45 | Emergency (ER) | payer MEDICARE, OTHER ==
[~2017-06-08] VITALS: Ht 175.3 cm; Wt 106.6 kg
[~2017-06-08 22:45] MED LIST changes: -ALPR1TAB7 PO; -AMIO400T4 PO; -CLOP75TA28 PO; -FURO-124 PO; -GABA-486 PO; -HYDR-3812 PO; -METO5TAB2 PO; -PANT40TA3 PO; -POTA-53 PO; -POTA10TA14 PO; -POTA20TA8 PO; -PRED10TA22 PO; -SACU1TAB PO; -VIT1CAPS9 PO
[2017-06-08] MEDS ORDERED: fentaNYL INJECTION 100 MCG/2 ML AMP IM ONE (23:30)
[2017-06-08] MEDS ORDERED: predniSONE 20 MG TAB PO ONE (23:30)
[2017-06-08] MEDS: RX-HYDROCODONE/APAP 5/325 MG #4 TAB PK PO PRN (23:40)
[2017-06-09] MEDS ORDERED: PRED10TA22 PO (00:01)
--- NOTE | 2017-06-09 00:01 | ED Hip Pain/Injury ---
General Chief Complaint: Hip/Pelvic Problems Stated Complaint: R HIP PAIN Nursing Triage Note: to ER by [facility] with reports of non-traumatic right hip pain since yesterday. Patient had outpatient xrays today, but is continuing to have pain. Source: patient Exam Limitations: no limitations History of Present Illness Time seen by provider: 23:20 Initial Comments This 71-year-old gentleman presents via EMS with complaints of right hip pain. He has seen his primary care provider and an x-ray was performed earlier today. Patient is in the emergency room because the pain is intolerable. He had a right hip [place] [address] Reg aDvis. He reports no specific injury, but he has done some bending and stooping recently. He had 2 days of intense pain about a week ago. He started having intense pain again 2 days ago. He denies any fever, nausea, or vomiting. He has not taken any medications today but took hydrocodone yesterday. He is anticoagulated with Eliquis Allergies and Home Medications Allergies Coded Allergies: No Known Drug Allergies (Verified , 04/18/17) Home Medications Alprazolam 1 Mg Tablet, 1 MG PO NEEDED, (Reported) Apixaban 5 Mg Tablet, 5 MG PO BID, (Reported) Aspirin 81 Mg Tablet.dr, 81 MG PO HS, (Reported) Atorvastatin Calcium 20 Mg Tablet, 20 MG PO HS, (Reported) Cetirizine HCl/Pseudoephedrine 1 Each Tab.er.12h, 1 TAB PO DAILY, (Reported) Cholecalciferol (Vitamin D3) 2,000 Unit Capsule, 2,000 UNIT PO DAILY, (Reported) Cyanocobalamin (Vitamin B-12) 1,000 Mcg Tab.subl, 1,000 MCG SL DAILY, (Reported) Diltiazem HCl 240 Mg Cap.er.24h, 240 MG PO DAILY, (Reported) Docusate Sodium 100 Mg Capsule, 100 MG PO Q48H, (Reported) Fluticasone Propionate 16 Gm [place].susp, 2 SPRAYS NS DAILY, (Reported) Fluticasone/Vilanterol 1 Each Blst.w.dev, 1 PUFF IH DAILY, (Reported) Furosemide 20 Mg Tablet, 20 MG PO DAILY, (Reported) Gabapentin 400 Mg Capsule, 400 MG PO BID, (Reported) Glucosamine/MSM/Chondroitin A 1 Each Tablet, 1 TAB PO DAILY, (Reported) Hydrocodone/Acetaminophen 1 Each Tablet, 1 EACH PO Q4H PRN for PAIN, #10 Prescribed by: WALT VILLALPANDO on 06/09/17 0002 Levothyroxine Sodium 25 Mcg Tablet, 25 MCG PO DAILY, (Reported) Metoclopramide HCl 5 Mg Tablet, 5 MG PO TID PRN for CRAMPS, #120 Prescribed by: PILAR MIRANDA on 04/18/17 1211 Metoprolol Succinate 200 Mg Tab.er.24h, 200 MG PO DAILY, (Reported) Montelukast Sodium 10 Mg Tablet, 10 MG PO DAILY, (Reported) Multivit-Min/FA/Lycopen/Lutein 1 Each Tablet, 1 TAB PO DAILY, (Reported) Oxymetazoline HCl 30 Ml [place], 1 SPRAY NS DAILY PRN PRN for CONGESTION, ( Reported) Pantoprazole Sodium 40 Mg Tablet.dr, 40 MG PO Q48H, (Reported) Polyvinyl Alcohol/Povidone 15 Ml Drops, 1 DROP OU DAILY PRN PRN for DRY EYES, ( Reported) Potassium Chloride 10 Meq Tablet.er, 10 MEQ PO DAILY, (Reported) Prednisone 10 Mg Tab.ds.pk, 10 MG PO BID, #6 Prescribed by: WALT VILLALPANDO on 06/09/17 0001 Sucralfate 1 Gm Tablet, 1 GM PO QID, #120 Prescribed by: PILAR MIRANDA on 04/18/17 1211 Tiotropium [place] 4 Gm Mist.inhal, 1 PUFF IH DAILY, (Reported) Ubidecarenone 100 Mg Capsule, 100 MG PO DAILY, (Reported) Vit A/C/E AC/Znox/Cupric Oxide 1 Each Tablet, 1 EACH PO DAILY, (Reported) Vitamin C/Vitamin E 1 Tab Tab, 1 TAB PO HS, (Reported) Constitutional: no symptoms reported EENTM: no symptoms reported Respiratory: no symptoms reported Cardiovascular: no symptoms reported Gastrointestinal: no symptoms reported Genitourinary: no symptoms reported Musculoskeletal: see HPI Skin: no symptoms reported Psychiatric/Neurological: No Symptoms Reported Past Vefjyet-Uztobp-Wbeunc Hx Patient Social History Alcohol Use: Denies Use Recreational Drug Use: No Smoking Status: Never a Smoker 2nd Hand Smoke Exposure: No Recent Foreign Travel: No Contact w/Someone Who Travel: No Recent Infectious Disease Expo: No Recent Hopitalizations: No Immunizations Up To Date Date of Pneumonia Vaccine: Jul 24, 2016 Date of Influenza Vaccine: Jul 31, 2016 Seasonal Allergies Seasonal Allergies: Yes Surgeries HX Surgeries: Yes (BILATERAL CARPAL TUNNEL; KIMBERLEE. HIP REPLACEMENTS; ROTATOR CUFF ; TOE; THUMB) Surgeries: Appendectomy, Cardiac (Cardioversion for A. fib), Gallbladder, Joint Replacement Respiratory Hx Respiratory Disorders: Yes (MILD) Respiratory Disorders: Asthma, Sleep Apnea Cardiovascular Hx Cardiac Disorders: Yes (CARDIOVERSION, anticoagulated) Cardiac Disorders: Atrial Fibrillation (Paroxysmal), High Cholesterol, Hypertension Neurological Hx Neurological Disorders: No Reproductive System Hx Reproductive Disorders: No Sexually Transmitted Disease: No HIV/AIDS: No Genitourinary Hx Genitourinary Disorders: Yes Genitourinary Disorders: Kidney Stones Gastrointestinal Hx Gastrointestinal Disorders: Yes (ABDOMINAL PAIN/BLOATING) Gastrointestinal Disorders: Gastroesophageal Reflux, Diverticulosis, Polyps Musculoskeletal Hx Musculoskeletal Disorders: Yes Musculoskeletal Disorders: Degenerate Disk Disease, Arthritis, Chronic Back Pain Endocrine Hx Endocrine Disorders: Yes HEENT HX ENT Disorders: Yes (GLASSES) Loss of Vision: Bilateral Hearing Impairment: Denies Cancer Hx Cancer: No Psychosocial Hx Psychiatric Problems: No Integumentary HX Skin/Integumentary Disorder: No Blood Transfusions Hx Blood Disorders: No Adverse Reaction to a Blood Tr: No Physical Exam Vital Signs Capillary Refill : Less Than 3 Seconds General Appearance: No Apparent Distress, WD/WN HEENT: Normal ENT Inspection Neck: Normal Inspection Cardiovascular: Regular Rate, Rhythm, No Edema, No Murmur Respiratory: Lungs Clear, Normal Breath Sounds, No Accessory Muscle Use, No Respiratory Distress Gastrointestinal: Non Tender, Soft Extremity: Normal Inspection, Non Tender, Other (Pain with flexion at the hip and rotation) Neurologic/Psychiatric: Alert, Oriented x3, No Motor/Sensory Deficits, Normal Mood/Affect, gastroenterology manager II-XII Norm as Tested Skin: Normal Color, Warm/Dry Progress/Results/Core Measures Results/Orders My Orders Orders - WALT REYES MD Fentanyl Injection (Sublimaze Injection (06/08/17 23:30) Rx-Hydrocodone/Apap 5-325 Mg (Rx-Vicodin (06/08/17 23:30) Prednisone Tablet (Deltasone Tablet) (06/08/17 23:30) Im/Sub-Q Injection Non-Ab Ed (06/08/17 ) Medications Given in ED Vital Signs/I&O Blood Pressure Mean: 125 Progress Note : Progress Note Patient was treated with fentanyl injection, prednisone, and hydrocodone. He was instructed to follow-up with his orthopedic doctor for further evaluation. X-ray demonstrated no problems with his prosthesis and no acute injuries. Diagnostic Imaging Diagonstic Imaging: Xray Plain Films/CT/US/NM/MRI: pelvis Comments NAME: STEVEN LUCAS [facility] REC#: [id number] PT STATUS: REG CLI : 1945 PHYSICIAN: PHIL GRANADOS APRN ADMIT DATE: 06/08/17/RAD Draft Date of Exam:06/08/17 HIP, RIGHT, 2 VIEWS INDICATION: Right hip pain. FINDINGS: Two views of the right hip show postop changes from total right hip arthroplasty. Prosthesis is in good position. There is no evidence of loosening. Alignment is normal. There is no acute fracture seen. IMPRESSION: Postsurgical changes of the right hip. No acute abnormality is seen. Dictated on workstation # [id number] Dict: 06/08/17 1531 Trans: 06/08/17 1853 [id number] [id number] Interpreted by: LEI NEWMAN Departure Impression Impression: Primary Impression: Hip pain, right Disposition: 01 HOME, SELF-CARE Condition: Improved Departure-Patient Inst. Decision time for Depature: 23:40 Referrals: HIEU PILLAI MD (PCP/Family) Primary Care Physician Patient Instructions: Hip Pain Add. Discharge Instructions: Resume your usual cardiac medications when you return home. Use hydrocodone as prescribed for pain. If you are not improving after couple days of steroids (prednisone) therapy, please contact your orthopedic office for a follow-up. Return to care if symptoms worsen. All discharge instructions reviewed with patient and/or family. Voiced understanding. Scripts Hydrocodone/Acetaminophen (Hydrocodon -Acetaminophen 5-325) 1 Each Tablet 1 EACH PO Q4H Y for PAIN, #10 TAB Prov: WALT REYES MD 06/09/17 Prednisone (Prednisone) 10 Mg Tab.ds.pk 10 MG PO BID, #6 PKG Prov: WALT REYES MD 06/09/17 WALT REYES MD Jun 09, 2017 00:01
[2017-06-09] MEDS ORDERED: HYDR-3812 PO (00:02)
[2017-06-09] MEDS: RX-HYDROCODONE/APAP 5/325 MG #4 TAB PK PO PRN (00:16)
[2017-06-09 00:17] VITALS: BP 154/84
== END 2017-06-09 00:17 | disposition home or self-care (01) ==
LOC: EDUNIT# 22:45 → ER 22:46
DX: M25.551 Pain in right hip (principal); J45.909 Unspecified asthma, uncomplicated; G47.30 Sleep apnea, unspecified; I48.91 Unspecified atrial fibrillation; K21.9 Gastro-esophageal reflux disease without esophagitis; M19.90 Unspecified osteoarthritis, unspecified site; E78.00 Pure hypercholesterolemia, unspecified; I10 Essential (primary) hypertension; Z87.19 Personal history of other diseases of the digestive system; Z87.442 Personal history of urinary calculi; Z86.010 Personal history of colon polyps; Z79.01 Long term (current) use of anticoagulants; Z79.82 Long term (current) use of aspirin; Z96.643 Presence of artificial hip joint, bilateral; Z90.49 Acquired absence of other specified parts of digestive tract
CPT/HCPCS: 96372; 99284

== ENCOUNTER → 2017-06-08 | Outpatient (CLI) | payer MEDICARE, OTHER ==
[~2017-06-08] MED LIST changes: +ALPR1TAB2 PO; +ALPR1TAB7 PO; +AMIO400T4 PO; +APIX5TAB PO; +CLOP75TA28 PO; +FURO-124 PO; +FURO-125 PO; +GABA-486 PO; +HYDR-3812 PO; -METO200T32 PO; +METO200T4 PO; +METO5TAB2 PO; +METO5TAB75 PO; +MONT10TA21 PO; +PANT40TA3 PO; +POTA-53 PO; +POTA10TA14 PO; +POTA10TA6 PO; +POTA20TA8 PO; +PRED10TA22 PO; +SACU1TAB PO; +SUCR1TAB36 PO; +VIT-8 PO; +VIT1CAPS9 PO
--- NOTE | 2017-06-08 18:53 | Diagnostic Imaging Report ---
INDICATION: Right hip pain. FINDINGS: Two views of the right hip show postop changes from total right hip arthroplasty. Prosthesis is in good position. There is no evidence of loosening. Alignment is normal. There is no acute fracture seen. IMPRESSION: Postsurgical changes of the right hip. No acute abnormality is seen. Dictated by: Dictated on workstation # [id number]
== END ==
LOC: RAD 15:08
PROVIDERS: ATTEND Nurse Practitioner Family
DX: M25.551 Pain in right hip (principal); Z96.641 Presence of right artificial hip joint
CPT/HCPCS: 73502

== ENCOUNTER 2017-07-10 09:58 | Day surgery (SDC) | payer MEDICARE, OTHER ==
[2017-07-09 14:11] VITALS: BP 157/90
[~2017-07-10] VITALS: Ht 175.3 cm; Wt 103.9 kg
[2017-07-10] VITALS (8 sets, daily range): BP systolic 136–173; BP diastolic 86–120
[~2017-07-10 09:58] MED LIST changes: +HYDR-3812 PO; +METO200T32 PO; -METO200T4 PO; +PRED10TA22 PO
[2017-07-10] MEDS ORDERED: NS IV 1000 ML 1,000 ML ONE (09:59)
[2017-07-10] MEDS ORDERED: HEParin (CATH LAB) 2,000 ML IV ONE (09:59)
[2017-07-10] MEDS ORDERED: NS IV 1000 ML 1,000 ML IV SCH ×2 (10:30→14:22)
[2017-07-10 10:31] LABS: MEAN PLATELET VOLUME 11.9 FL (7.4-10.4); RED BLOOD COUNT 5.56 10^6/uL (4.35-5.85); RED CELL DISTRIBUTION WIDTH 14.2 % (10.0-14.5); WHITE BLOOD COUNT 7.7 10^3/uL (4.3-11.0)
[2017-07-10 10:49] LABS: PROTHROMBIN TIME PATIENT 13.3 SEC (12.2-14.7)
[2017-07-10] MEDS ORDERED: PANT40TA3 PO (10:50)
[2017-07-10] MEDS ORDERED: POTA10TA14 PO (10:50)
[2017-07-10] MEDS ORDERED: MONT10TA24 PO (10:50)
[2017-07-10] MEDS ORDERED: VIT1CAPS9 PO (10:50)
[2017-07-10] MEDS ORDERED: METO5TAB2 PO (10:50)
[2017-07-10] MEDS ORDERED: GABA-486 PO (10:50)
[2017-07-10 10:58] LABS: ALBUMIN 4.7 GM/DL (3.2-4.5); BILIRUBIN,TOTAL 1.4 MG/DL (0.1-1.0); CALCIUM 9.9 MG/DL (8.5-10.1); CREATININE SERUM 1.23 MG/DL (0.60-1.30); POTASSIUM 3.7 MMOL/L (3.6-5.0); TOTAL PROTEIN 7.1 GM/DL (6.4-8.2)
[2017-07-10] MEDS ORDERED: POTA20TA8 PO (11:04)
[2017-07-10] MEDS ORDERED: ALPR1TAB7 PO (11:04)
[2017-07-10] MEDS ORDERED: diphenhydrAMINE 50 MG/ML INJ (BENADRYL) ONE (11:35)
[2017-07-10] MEDS ORDERED: MIDAZOLAM 5 MG/5 ML (VERSED) VIAL ONE (11:35)
[2017-07-10] MEDS ORDERED: fentaNYL INJECTION 100 MCG/2 ML AMP ONE (11:35)
--- NOTE | 2017-07-10 12:00 | Cardiac Procedure Note-CS/ASA ---
Pre-Procedure Note Pre-Op Procedure Note H&P Reviewed The H&P was reviewed, patient examined and no changes noted. Date H&P Reviewed: Jul 10, 2017 Time H&P Reviewed: 12:00 Conscious Sedation Pre-Proced Time Reviewed: 12:00 ASA Class: 3 Airway Mallampati Classification: ([place] appropriate class) I. II. III, IV Lungs Heart ASA score ASA 1: a normal healthy patient ASA 2: a patient with a mild systemic disease (mid diabetes, controlled hypertension, obesity ASA 3: a patient with a severe systemic disease that limits activity (angina , COPD, prior Myocardial infarction) ASA 4: a patient with an incapacitating disease that is a constant threat to life (CHF, renal failure) ASA 5: a moribund patient not expected to survive 24 hrs. (ruptured aneurysm) ASA 6: a declared brain patient whose organs are being harvested. For emergent operations, add the letter E after the classification Grade 2 Sedation Plan: Analgesia, Amnesia, Plan communicated to team members, Discussed options with patient/fam, Discussed risks with patient/fam Note The patient is an appropriate candidate to undergo the planned procedure, sedation, and anesthesia. The patient immediately re-assessed prior to indication. BECKY MUJICA MD FACP FAC CCDS Jul 10, 2017 12:00
[2017-07-10] MEDS ORDERED: EPTIFIBATIDE BOLUS 20 ML IV ONE (13:06)
[2017-07-10] MEDS ORDERED: HEParin 1000 UNIT/ML (10ML VIAL) FOR BOLUS ONE (13:06)
[2017-07-10] MEDS ORDERED: NITROGLYCERIN DRIP 25 MG/D5W 250 ML IV ONE (13:06)
[2017-07-10] MEDS ORDERED: CLOPIDOGREL 300 MG (PLAVIX) TABLET PO ONE (13:34)
[2017-07-10] MEDS ORDERED: ASPIRIN 81 MG CHEW (CHILDREN'S ASA) ONE (13:34)
[2017-07-10] MEDS ORDERED: FUROSEMIDE 40 MG/4 ML INJ (LASIX) IVP ONE (14:30)
[2017-07-10] MEDS ORDERED: PATIENT MAY USE OWN MEDS, ALL PO SCH (14:30)
[2017-07-10] MEDS ORDERED: ALPRAZolam 1 MG (XANAX) TAB PO PRN (14:30)
[2017-07-10] MEDS ORDERED: DOCUSATE SODIUM 100 MG (COLACE) CAP PO SCH (14:30)
[2017-07-10] MEDS ORDERED: OXYMETAZOLINE (AFRIN) 0.05% NA 15 ML BTL NS PRN (14:30)
[2017-07-10] MEDS ORDERED: ACETAMINOPHEN 325 MG TABLET/CAPLET (TYLENOL) PO PRN (14:30)
[2017-07-10] MEDS ORDERED: amLODIPine 5 MG (NORVASC) TAB PO PRN (15:45)
[2017-07-10] MEDS: METOCLOPRAMIDE 5 MG (REGLAN) TAB PO SCH (16:34)
[2017-07-10] MEDS ORDERED: ARTIFICAL TEARS 0.4 ML UNIT DOSE (REFRESH PLUS) OU PRN (16:45)
[2017-07-10] MEDS ORDERED: PSEUDOEPHEDRINE HCL 30 MG (SUDAFED) TAB PO PRN (17:00)
[2017-07-10] MEDS: GABAPENTIN 100 MG (NEURONTIN) CAP PO SCH (20:31)
[2017-07-10] MEDS: ATORVASTATIN 20 MG (LIPITOR) TABLET PO SCH (20:31)
[2017-07-10] MEDS: MONTELUKAST 10 MG (SINGULAIR) TAB PO SCH (20:31)
[2017-07-10] MEDS: AMIODARONE 200 MG (CORDARONE) TAB PO SCH (20:32)
[2017-07-10] MEDS: APIXABAN 5 MG (ELIQUIS) TABLET PO SCH (20:32)
[2017-07-10] MEDS ORDERED: NON-FORMULARY MEDICATION 1 EA EA (Vit C/Vit E/Lutein/Min/Omega-3 (Ocuvite Softgel) 1 CAP) PO SCH (21:00)
[2017-07-11] VITALS (8 sets, daily range): BP systolic 110–157; BP diastolic 71–96
--- NOTE | 2017-07-11 02:11 | CARDIAC CATHETERIZATION ---
DATE OF SERVICE: 07/10/2017 INDICATIONS FOR PROCEDURE: The patient is a 71-year-old gentleman who has been experiencing increasing shortness of breath. He is known to have paroxysmal atrial fibrillation. Symptoms have been consistent with congestive heart failure and cardiac catheterization was carried out today after having obtained an informed consent. PROCEDURE: He was brought to the cardiac catheterization laboratory in a fasting state. Right groin was prepared and draped in the usual sterile fashion. Lidocaine 1% was used for local anesthesia. Modified Seldinger technique was used to advance a 5-[place] sheath into the right femoral artery. We have used a 7-[place] sheath in the right femoral vein to carry out right heart catheterization with a [place]hupendra catheter. Right heart pressures were measured. Oxygen saturations were measured in the right heart chambers. The catheter was then removed and we proceeded with left heart catheterization, which started with insertion of a pigtail catheter into the left ventricle and left ventricular angiography. A 5-[place] JL4 catheter for left coronary angiography, 5-[place] JR4 catheter for right coronary angiography, 5-[place] pigtail catheter was used for left heart catheterization and left ventricular angiography. PERCUTANEOUS INTERVENTION TO THE LEFT ANTERIOR DESCENDING ARTERY: Following completion of the diagnostic procedure, we carried out percutaneous intervention to the left anterior descending artery, which was exhibiting an 80 to 90% mid vessel stenosis. We exchanged the sheath over a wire for a 6-[place] sheath. We used a 6-[place] JL4 guide catheter. We advanced a BMW wire across the lesion and the tip was placed in the distal vessel. We carried out balloon angioplasty with Emerge 2.25 x 15 mm balloon. The balloon was then removed and we advanced Alpine Xience 3.0 x 23 mm stent. This lesion was fully covered and the stent was deployed at 12 atmospheres. Subsequent angiography revealed 0% residual stenosis at the previous site of 80 to 90% stenosis. He tolerated the procedure well. The angioplasty equipment was removed. Angiography of the right femoral artery had been carried out through the sheath at the time of sheath insertion. At the end of this procedure, Mynx was used to achieve hemostasis. The patient received 5000 units of intravenous heparin during the procedure and a double bolus of Integrilin. HEMODYNAMICS: Pulmonary artery pressure is 46/24 with a mean of 29 mmHg. Mean right atrial pressure was 9 mmHg. Mean pulmonary wedge pressure is 19 mmHg. Right ventricular pressure is 39/11. The left ventricular end-diastolic pressure is 16 mmHg. Cardiac output by thermodilution is 3.95 with a cardiac index of 1.82. Deonna cardiac output is 6.43. Oxygen saturation was measured in the right heart chambers and there is no evidence of intracardiac shunt based on these measurements. LEFT VENTRICULAR ANGIOGRAPHY: Left ventricular angiography was carried out in the right anterior oblique projection. Global left ventricular systolic function is impaired. There is global hypokinesis of left ventricle. Left ventricular ejection fraction is 20-25%. There does not appear to be significant mitral regurgitation. CORONARY ANGIOGRAPHY: Diffuse coronary calcification and plaques are present involving all coronary vessels. Left main coronary artery does not exhibit significant obstructive disease. Left anterior descending artery had 80 to 90% mid vessel stenosis to which successful stenting was carried out. Following deployment of Alpine Xience 3.0 x 23 mm stent, there is 0% residual stenosis. The right coronary artery is dominant. CONCLUSIONS: 1. Coronary artery disease as described above, primarily consisting of 80 to 90% mid vessel stenosis in left anterior descending artery to which successful stenting was carried out using Alpine Xience 3.0 x 23 mm stent deployed at 12 atmospheres. The rest of the coronary vessels have diffuse calcification and lwrg-ae-tnigzmsj plaque. 2. Global impairment of left ventricular systolic function with global hypokinesis and left ventricular ejection fraction 20-25%. 3. Elevated left ventricular end-diastolic pressure and pulmonary wedge pressure, indicative of systolic left heart failure. 4. No significant mitral regurgitation. DISCUSSION AND RECOMMENDATIONS: Aspirin and Plavix have been added to the regimen for now. We are continuing therapy with Eliquis, given paroxysmal fibrillation. We will use aspirin for 1 to 2 more days and then stop aspirin and continue with the Plavix. Once the course of Plavix has been completed, we will switch it out to aspirin. We would not like to use three agents (aspirin, Plavix, Eliquis) for any significant left time, given risk of bleeding. For the treatment of heart failure, we are continuing therapy with diuretics and we will add ALLY inhibitors. Beta blockers are being continued. We will consider pharmacologic therapy for atrial fibrillation, as well. This is because the atrial fibrillation is likely contributing to his cardiomyopathy, which appears to be both ischemic and nonischemic (rate-related). Further recommendations will be based on his hospital course. Job ID: [id number] DocumentID: [id number] Dictated Date: 07/10/2017 13:58:43 Dynamometer Tester Engine Date: 07/11/2017 02:11:12 Dictated By: BECKY MUJICA MD, MA, FACP, FACC,
[2017-07-11 05:50] LABS: RED BLOOD COUNT 4.93 10^6/uL (4.35-5.85); RED CELL DISTRIBUTION WIDTH 14.1 % (10.0-14.5); WHITE BLOOD COUNT 6.6 10^3/uL (4.3-11.0)
[2017-07-11] MEDS: LEVOTHYROXINE 25 MCG (LEVOTHROID) TAB PO SCH (06:46)
[2017-07-11] MEDS: PANTOPRAZOLE 40 MG (PROTONIX) TAB PO SCH (06:47)
[2017-07-11] MEDS: KCL 20 MEQ TAB (K-DUR) PO SCH (06:47)
[2017-07-11] MEDS: METOCLOPRAMIDE 5 MG (REGLAN) TAB PO SCH ×2 (06:48→16:35)
[2017-07-11] MEDS: VITAMIN D3 1,000 UNITS (CHOLECALCIFEROL) TABLET PO SCH (06:48)
[2017-07-11] MEDS: MULTIVIT W/MINERALS TAB (THERAGRAN M) PO SCH (06:48)
[2017-07-11] MEDS: CYANOCOBALAMIN 500 MCG TAB (VITAMIN B-12) PO SCH (06:48)
[2017-07-11 06:52] LABS: ANION GAP 12 MMOL/L (5-14); BLOOD UREA NITROGEN 14 MG/DL (7-18); BUN/CREATININE RATIO 13; CALCIUM 8.9 MG/DL (8.5-10.1); CARBON DIOXIDE 26 MMOL/L (21-32); CHLORIDE 104 MMOL/L (98-107); CREATININE SERUM 1.04 MG/DL (0.60-1.30); GFR ESTIMATED > 60; GLUCOSE 83 MG/DL (70-105); POTASSIUM 2.7 MMOL/L (3.6-5.0); SODIUM 142 MMOL/L (135-145)
[2017-07-11] MEDS ORDERED: KCL 20 MEQ TAB (K-DUR) PO NR ×2 (08:00→11:00)
--- NOTE | 2017-07-11 08:55 | Progress Note-Cardiology ---
Cardiology SOAP Progress Note Subjective: Sitting up in a chair at the bedside. No c/o CP, palpitations, syncope, near syncope or shortness of breath. No c/o groin pain. Objective: I&O/Vital Signs Vital Sign - Last 12Hours 07/11/17 07/11/17 07/11/17 07/11/17 00:40 04:00 04:51 04:52 Temp 97.9 97.7 97.7 Pulse 73 73 73 Resp 18 18 18 B/P (MAP) 149/84 144/80 144/80 Pulse Ox 97 95 95 O2 Delivery Room Air Room Air Room Air Room Air 07/11/17 07/11/17 08:00 09:36 Temp 97.9 97.9 Pulse 61 Resp 18 B/P (MAP) 157/82 Pulse Ox 98 O2 Delivery Room Air Weight (Pounds): 228 Weight (Ounces): 3.0 Weight (Calculated Kilograms): 103.859014 Side: right Groin site without hematoma: Yes Condition: DP/PT pulses palpable, extremity w/d/p Bruising: mild bruising Constitutional: AAO x 3 Respiratory: lungs clear to auscultation Cardiovascular: irregularly irregular, No JVD, S1 and S2 Gastrointestional: No tender, soft, round, audible bowel sounds Extremities: No significant edema Neurologic/Psychiatric: grossly intact Skin: No ulcerations Results/Procedures: Labs Laboratory Tests 07/10/17 21:26: Glucometer 122H 07/11/17 04:58: White Blood Count 6.6, Red Blood Count 4.93, Hemoglobin 15.6, Hematocrit 46, Mean Corpuscular Volume 93, Mean Corpuscular Hemoglobin 32, Mean Corpuscular Hemoglobin Concent 34, Red Cell Distribution Width 14.1, Platelet Count 146, Mean Platelet Volume 12.0H, Sodium Level 142, Potassium Level 2.7L, Chloride Level 104, Carbon Dioxide Level 26, Anion Gap 12, Blood Urea Nitrogen 14, Creatinine 1.04, Estimat Glomerular Filtration Rate > 60, BUN/Creatinine Ratio 13, Glucose Level 83, Calcium Level 8.9 Procedures S/P cardiac cath with successful intervention. Please refer to Dr. Mujica's cardiac cath report of 07-10-17 for details. A/P: Assessment: Dilated cardiomyopathy, both ischemic and non-ischemic Acute systolic CHF Cardiac cath of 07-10-17: Coronary artery disease primarily consisting of 80 to 90% mid vessel stenosis in left anterior descending artery to which successful stenting was carried out using Alpine Xience 3.0 x 23 mm stent deployed at 12 atmospheres. The rest of the coronary vessels have diffuse calcification and dbel-nl-hbpafokb plaque. Global impairment of left ventricular systolic function with global hypokinesis and left ventricular ejection fraction 20-25%. Elevated left ventricular end-diastolic pressure and pulmonary wedge pressure, indicative of systolic left heart failure. No significant mitral regurgitation. PAF with RVR, first documented on an ECG of 04/09/17; recurrent post elec CV of Chronic tiredness of undetermined etiology, stable Mild ectasia of RCA and mild prox and mid LAD disease on cardiac cath of Jul [address] Urena. LV function was reported to be normal. MPI of 04/11/16 showed no ischemia or infarction and LVEF 45% Echo of 05/10/16 showed mild to mod conc LVH, LVEF 60%, PASP 50-55 mmHg. Last echo of 11/14/16: LVEF 50-55%, mod enlargement of LA, mild pum & mitral & tricusp & aortic regurg, PASP 40-45 mmHg Pulmonary hypertension for which he is following with Dr. Hdz H/o PVCs. Holter of 07/12/15 showed freq PVCs that were mostly isolated and coupled and with some runs of 3 and 4 beats Hyperlipidemia HAYES, treated with CPAP followed by Dr. Hdz Pulnorma function tests, according to Dr Urena's office 12/22/14, have been normal H/o GERD and colon polyps and diverticular disease, followed by Dr Encinas and Dr Oma YOUNGER H/o postural dizziness, currently controlled He has has carotid f/u with [facility] and has been told he has mild plaque, last done in early 2016, according to Mr Qian Hypertension CKD stage 2-3, but this seems to have resolved following cessation of diuretics in early Jun 2014 (indicating a considerable pre-renal component due to vol depletion) Borderline hypothyroidism Hypokalemia - likely d/t diuretic tx Plan: DISCUSSION AND RECOMMENDATIONS: Aspirin and Plavix have been added to the regimen for now. We are continuing therapy with Eliquis, given paroxysmal fibrillation. We will use aspirin for 1 to 2 more days and then stop aspirin and continue with the Plavix. Once the course of Plavix has been completed, we will switch it out to aspirin. We would not like to use three agents (aspirin, Plavix, Eliquis) for any significant left time, given risk of bleeding. For the treatment of heart failure, we are continuing therapy with diuretics and we will add ALLY inhibitors. Beta blockers are being continued. We will consider pharmacologic therapy for atrial fibrillation, as well. This is because the atrial fibrillation is likely contributing to his cardiomyopathy , which appears to be both ischemic and nonischemic (rate-related) Acute systolic CHF which we will continue diuretic regimen Monitor lab closely Replace electrolytes We have discussed with him and his in detail his CV issues and plan of care to which they verbalize understanding Physician Assessment Physician Assessment Shortness of breath somewhat better today Lungs: good bilat air entry, basal fine crackles Cor: irreg Ext: no c/c; mild edema A&R * As documented in our note above that I updated (italics) and as noted below * I had a detailed discussion with him and his and explained the cath findings and interventions undertaken * We are continuing diuretics * Replenish K and monitor labs * We have added Entresto to the regimen * We have added amiodarone to the regimen in effort to acquire and maintain NSR * He is chronically on apixaban * We have added aspirin and Plavix after cor intervention. Will continue aspirin today and d/c tomorrow. Plavix to continue CLAYTON HERNANDEZ STAFF COUNSELOR Jul 11, 2017 08:55 BECKY MUJICA MD FACP [facility] CCDS Jul 11, 2017 12:32
[2017-07-11] MEDS ORDERED: MSM PO SCH (09:00)
[2017-07-11] MEDS ORDERED: [UNRECOGNIZED DRUG - OTHER] PO SCH (09:00)
[2017-07-11] MEDS ORDERED: CHONDROITIN A PO SCH (09:00)
[2017-07-11] MEDS ORDERED: GLUCOSAMINE PO SCH (09:00)
[2017-07-11] MEDS ORDERED: LORATADINE (CLARITIN) 10 MG TAB PO PRN (09:00)
[2017-07-11] MEDS ORDERED: FUROSEMIDE 20 MG (LASIX) TAB PO SCH (09:00)
[2017-07-11] MEDS: DOCUSATE SODIUM 100 MG (COLACE) CAP PO SCH (09:04)
[2017-07-11] MEDS: METOPROLOL SUCCINATE 200 MG PO SCH (09:04)
[2017-07-11] MEDS: GABAPENTIN 100 MG (NEURONTIN) CAP PO SCH ×2 (09:05→21:23)
[2017-07-11] MEDS: APIXABAN 5 MG (ELIQUIS) TABLET PO SCH ×2 (09:05→21:24)
[2017-07-11] MEDS: ASPIRIN 81 MG CHEW (CHILDREN'S ASA) PO SCH (09:05)
[2017-07-11] MEDS: CLOPIDOGREL 75 MG (PLAVIX) TABLET PO SCH (09:05)
[2017-07-11] MEDS: NON-FORMULARY MEDICATION 1 EA EA (Ubidecarenone (Co Q-10) 100 MG) PO SCH (09:09)
[2017-07-11] MEDS: FUROSEMIDE 40 MG/4 ML INJ (LASIX) IVP SCH (10:02)
[2017-07-11] MEDS: SACUBITRIL/VALSARTAN 24/26 MG (ENTRESTO) TABLET PO SCH ×2 (10:02→21:22)
[2017-07-11] MEDS: AMIODARONE 200 MG (CORDARONE) TAB PO SCH ×2 (10:02→21:22)
[2017-07-11] MEDS: ATORVASTATIN 20 MG (LIPITOR) TABLET PO SCH (21:23)
[2017-07-11] MEDS: MONTELUKAST 10 MG (SINGULAIR) TAB PO SCH (21:25)
[2017-07-12 00:25] VITALS: BP 138/81
[2017-07-12 04:00] VITALS: BP 143/70
[2017-07-12] MEDS: MULTIVIT W/MINERALS TAB (THERAGRAN M) PO SCH (05:46)
[2017-07-12] MEDS: CYANOCOBALAMIN 500 MCG TAB (VITAMIN B-12) PO SCH (05:46)
[2017-07-12] MEDS: METOCLOPRAMIDE 5 MG (REGLAN) TAB PO SCH ×2 (05:47→16:29)
[2017-07-12] MEDS: VITAMIN D3 1,000 UNITS (CHOLECALCIFEROL) TABLET PO SCH (05:47)
[2017-07-12] MEDS: KCL 20 MEQ TAB (K-DUR) PO SCH ×2 (05:48→16:29)
[2017-07-12] MEDS: LEVOTHYROXINE 25 MCG (LEVOTHROID) TAB PO SCH (05:49)
[2017-07-12] MEDS: PANTOPRAZOLE 40 MG (PROTONIX) TAB PO SCH (05:49)
[2017-07-12 06:03] LABS: BASOPHILS % (AUTO) 0 % (0-10); EOSINOPHILS # (AUTO) 0.1 10^3/uL (0.0-0.3); EOSINOPHILS % (AUTO) 2 % (0-10); LYMPHOCYTES # (AUTO) 1.3 X 10^3 (1.0-4.0); LYMPHOCYTES % (AUTO) 19 % (12-44); MEAN CORPUSCULAR HEMOGLOBIN 32 PG (25-34); MEAN CORPUSCULAR HGB CONC 34 G/DL (32-36); MEAN CORPUSCULAR VOLUME 93 FL (80-99); MEAN PLATELET VOLUME 11.8 FL (7.4-10.4); MONOCYTES # (AUTO) 0.6 X 10^3 (0.0-1.0); MONOCYTES % (AUTO) 8 % (0-12); NEUTROPHILS # (AUTO) 4.9 X 10^3 (1.8-7.8); NEUTROPHILS % (AUTO) 71 % (42-75); PLATELET COUNT 153 10^3/uL (130-400); RED BLOOD COUNT 5.15 10^6/uL (4.35-5.85); RED CELL DISTRIBUTION WIDTH 14.3 % (10.0-14.5); WHITE BLOOD COUNT 6.9 10^3/uL (4.3-11.0)
[2017-07-12 06:40] LABS: ANION GAP 13 MMOL/L (5-14); BLOOD UREA NITROGEN 18 MG/DL (7-18); BUN/CREATININE RATIO 17; CALCIUM 9.3 MG/DL (8.5-10.1); CARBON DIOXIDE 24 MMOL/L (21-32); CHLORIDE 104 MMOL/L (98-107); CREATININE SERUM 1.04 MG/DL (0.60-1.30); GFR ESTIMATED > 60; GLUCOSE 101 MG/DL (70-105); MAGNESIUM 1.8 MG/DL (1.8-2.4); POTASSIUM 3.2 MMOL/L (3.6-5.0); SODIUM 141 MMOL/L (135-145)
[2017-07-12 07:05] LABS: THYROID STIMULATING HORMONE 3.57 UIU/ML (0.35-4.94)
[2017-07-12 08:00] VITALS: BP 162/104
[2017-07-12] MEDS ORDERED: KCL 20 MEQ TAB (K-DUR) PO NR ×2 (08:45→12:00)
--- NOTE | 2017-07-12 08:45 | Progress Note-Cardiology ---
Cardiology SOAP Progress Note Subjective: States he continues to have some shortness of breath, mostly with ambulation. Describes it as a feeling like he can't catch his breath. Lasts for a few moments and resolves. No c/o CP. Objective: I&O/Vital Signs Vital Sign - Last 12Hours 07/12/17 07/12/17 07/12/17 07/12/17 00:00 00:25 01:00 04:00 Temp 97.2 98.0 Pulse 85 107 78 Resp 18 20 B/P (MAP) 138/81 143/70 Pulse Ox 96 97 O2 Delivery Room Air Room Air NIV CPAP 07/12/17 07/12/17 07/12/17 04:00 08:00 10:16 Temp 96.7 96.7 Pulse 87 Resp 18 B/P (MAP) 162/104 Pulse Ox 97 O2 Delivery Room Air NIV CPAP Weight (Pounds): 227 Weight (Ounces): 2.0 Weight (Calculated Kilograms): 103.805690 Side: right Groin site without hematoma: Yes Condition: DP/PT pulses palpable, extremity w/d/p Bruising: mild bruising Constitutional: AAO x 3 Respiratory: lungs clear to auscultation Cardiovascular: irregularly irregular, No JVD, S1 and S2 Gastrointestional: No tender, soft, round, audible bowel sounds Extremities: No significant edema Neurologic/Psychiatric: grossly intact Skin: No ulcerations Results/Procedures: Labs Laboratory Tests 07/12/17 05:13: White Blood Count 6.9, Red Blood Count 5.15, Hemoglobin 16.3, Hematocrit 48, Mean Corpuscular Volume 93, Mean Corpuscular Hemoglobin 32, Mean Corpuscular Hemoglobin Concent 34, Red Cell Distribution Width 14.3, Platelet Count 153, Mean Platelet Volume 11.8H, Neutrophils (%) (Auto) 71, Lymphocytes (%) (Auto) 19 , Monocytes (%) (Auto) 8, Eosinophils (%) (Auto) 2, Basophils (%) (Auto) 0, Neutrophils # (Auto) 4.9, Lymphocytes # (Auto) 1.3, Monocytes # (Auto) 0.6, Eosinophils # (Auto) 0.1, Basophils # (Auto) 0.0, Sodium Level 141, Potassium Level 3.2L, Chloride Level 104, Carbon Dioxide Level 24, Anion Gap 13, Blood Urea Nitrogen 18, Creatinine 1.04, Estimat Glomerular Filtration Rate > 60, BUN/ Creatinine Ratio 17, Glucose Level 101, Calcium Level 9.3, Magnesium Level 1.8, B-Type Natriuretic Peptide 306.3H, Thyroid Stimulating Hormone (TSH) 3.57 Microbiology 07/10/17 MRSA Screen - Final, Complete MRSA not isolated A/P: Assessment: Dilated cardiomyopathy, both ischemic and non-ischemic Acute systolic CHF Cardiac cath of 07-10-17: Coronary artery disease primarily consisting of 80 to 90% mid vessel stenosis in left anterior descending artery to which successful stenting was carried out using Alpine Xience 3.0 x 23 mm stent deployed at 12 atmospheres. The rest of the coronary vessels have diffuse calcification and davx-[id number]-jdaekyug plaque. Global impairment of left ventricular systolic function with global hypokinesis and left ventricular ejection fraction 20-25%. Elevated left ventricular end-diastolic pressure and pulmonary wedge pressure, indicative of systolic left heart failure. No significant mitral regurgitation. PAF with RVR, first documented on an ECG of 04/09/17; recurrent post elec CV of Chronic tiredness of undetermined etiology, stable MPI of 04/11/16 showed no ischemia or infarction and LVEF 45% Echo of 05/10/16 showed mild to mod conc LVH, LVEF 60%, PASP 50-55 mmHg. Last echo of 11/14/16: LVEF 50-55%, mod enlargement of LA, mild pum & mitral & tricusp & aortic regurg, PASP 40-45 mmHg Pulmonary hypertension for which he is following with Dr. Hdz H/o PVCs. Holter of 07/12/15 showed freq PVCs that were mostly isolated and coupled and with some runs of 3 and 4 beats Hyperlipidemia HAYES, treated with CPAP followed by Dr. Hdz Pulnorma function tests, according to Dr Urena's office 12/22/14, have been normal H/o GERD and colon polyps and diverticular disease, followed by Dr Encinas and Dr Oma YOUNGER H/o postural dizziness, currently controlled He has has carotid f/u with [facility] and has been told he has mild plaque, last done in early 2016, according to Mr Qian Hypertension CKD stage 2-3, but this seems to have resolved following cessation of diuretics in early Jun 2014 (indicating a considerable pre-renal component due to vol depletion) Borderline hypothyroidism Hypokalemia - likely d/t diuretic tx Plan: Plavix have been added to the regimen for now. We are continuing therapy with Eliquis, given paroxysmal fibrillation. He has had ASA for 3 days. We will stop aspirin and continue with the Plavix. Once the course of Plavix has been completed, we will switch it out to aspirin. We would not like to use three agents (aspirin, Plavix, Eliquis) for any significant left time, given risk of bleeding. For the treatment of heart failure, we are continuing therapy with diuretics and we added Entresto. Beta blockers are being continued. We have added amiodarone to the regimen in effort to acquire and maintain NSR. This is because the atrial fibrillation is likely contributing to his cardiomyopathy, which appears to be both ischemic and nonischemic (rate-related) Acute systolic CHF which we will continue diuretic regimen Physician Assessment Physician Assessment Shortness of breath somewhat better, but not resolved Lungs: good bilat air entry Cor: irreg Ext: no c/c; mild edema (improved) A&R * Improved but does not appear ready for discharge * Increase furosemide * Replenish K and monitor labs * We have added Entresto to the regimen * We have added amiodarone to the regimen in effort to acquire and maintain NSR * He is chronically on apixaban * We have added aspirin and Plavix after cor intervention. Will continue aspirin one more day and d/c after tomorrow's dose. Plavix to continue CLAYTON HERNANDEZ NURSING AGENCY MANAGER Jul 12, 2017 08:45 BECKY MUJICA MD FACP FAC CCDS Jul 12, 2017 10:54
[2017-07-12] MEDS: FUROSEMIDE 40 MG/4 ML INJ (LASIX) IVP SCH ×2 (09:39→16:29)
[2017-07-12] MEDS: APIXABAN 5 MG (ELIQUIS) TABLET PO SCH ×2 (09:40→20:56)
[2017-07-12] MEDS: GABAPENTIN 100 MG (NEURONTIN) CAP PO SCH ×2 (09:40→20:57)
[2017-07-12] MEDS: ASPIRIN 81 MG CHEW (CHILDREN'S ASA) PO SCH (09:40)
[2017-07-12] MEDS: METOPROLOL SUCCINATE 200 MG PO SCH (09:40)
[2017-07-12] MEDS: AMIODARONE 200 MG (CORDARONE) TAB PO SCH ×2 (09:41→20:56)
[2017-07-12] MEDS: NON-FORMULARY MEDICATION 1 EA EA (Ubidecarenone (Co Q-10) 100 MG) PO SCH (09:41)
[2017-07-12] MEDS: SACUBITRIL/VALSARTAN 24/26 MG (ENTRESTO) TABLET PO SCH ×2 (09:41→20:56)
[2017-07-12] MEDS: CLOPIDOGREL 75 MG (PLAVIX) TABLET PO SCH (09:41)
[2017-07-12 12:00] VITALS: BP 148/89
[2017-07-12 15:55] VITALS: BP 140/88
[2017-07-12 19:20] VITALS: BP 138/89
[2017-07-12] MEDS: COENZYME Q10 400 MG PO SCH (19:52)
[2017-07-12] MEDS: GLUCOSAMINE PO SCH (19:52)
[2017-07-12] MEDS: CHONDROITIN PO SCH (19:52)
[2017-07-12] MEDS: METHYLSULFONYLMETHANE PO SCH (19:52)
[2017-07-12] MEDS: ATORVASTATIN 20 MG (LIPITOR) TABLET PO SCH (20:56)
[2017-07-12] MEDS: MONTELUKAST 10 MG (SINGULAIR) TAB PO SCH (20:58)
[2017-07-13 00:25] VITALS: BP 140/81
[2017-07-13 04:30] VITALS: BP 141/83
[2017-07-13 05:50] LABS: ANION GAP 10 MMOL/L (5-14); BLOOD UREA NITROGEN 19 MG/DL (7-18); BUN/CREATININE RATIO 17; CALCIUM 9.2 MG/DL (8.5-10.1); CARBON DIOXIDE 25 MMOL/L (21-32); CHLORIDE 107 MMOL/L (98-107); CREATININE SERUM 1.13 MG/DL (0.60-1.30); GFR ESTIMATED > 60; GLUCOSE 100 MG/DL (70-105); POTASSIUM 3.5 MMOL/L (3.6-5.0); SODIUM 142 MMOL/L (135-145)
[2017-07-13] MEDS: LEVOTHYROXINE 25 MCG (LEVOTHROID) TAB PO SCH (05:59)
[2017-07-13] MEDS: FUROSEMIDE 40 MG/4 ML INJ (LASIX) IVP SCH (06:00)
[2017-07-13] MEDS: KCL 20 MEQ TAB (K-DUR) PO SCH ×2 (06:01)
[2017-07-13] MEDS: PANTOPRAZOLE 40 MG (PROTONIX) TAB PO SCH (06:06)
[2017-07-13] MEDS: METOCLOPRAMIDE 5 MG (REGLAN) TAB PO SCH (06:08)
[2017-07-13] MEDS ORDERED: VITAMIN B12 1000 MCG SL SCH (07:00)
[2017-07-13] MEDS ORDERED: MULTIVITAMIN PO SCH (07:00)
[2017-07-13] MEDS ORDERED: [UNRECOGNIZED DRUG - OTHER] PO SCH (07:00)
[2017-07-13] MEDS ORDERED: VITAMIN D3 2000 UNIT PO SCH (07:00)
[2017-07-13] MEDS: SACUBITRIL/VALSARTAN 24/26 MG (ENTRESTO) TABLET PO SCH (07:45)
[2017-07-13] MEDS: ASPIRIN 81 MG CHEW (CHILDREN'S ASA) PO SCH (07:45)
[2017-07-13] MEDS: AMIODARONE 200 MG (CORDARONE) TAB PO SCH (07:46)
[2017-07-13] MEDS: DOCUSATE SODIUM 100 MG (COLACE) CAP PO SCH (07:46)
[2017-07-13] MEDS: GABAPENTIN 100 MG (NEURONTIN) CAP PO SCH (07:47)
[2017-07-13] MEDS: GLUCOSAMINE PO SCH (07:47)
[2017-07-13] MEDS: METHYLSULFONYLMETHANE PO SCH (07:47)
[2017-07-13] MEDS: CHONDROITIN PO SCH (07:47)
[2017-07-13] MEDS: COENZYME Q10 400 MG PO SCH (07:48)
[2017-07-13] MEDS: METOPROLOL SUCCINATE 200 MG PO SCH (07:48)
[2017-07-13] MEDS: APIXABAN 5 MG (ELIQUIS) TABLET PO SCH (07:48)
[2017-07-13 08:36] VITALS: BP 140/94
[2017-07-13] MEDS: CLOPIDOGREL 75 MG (PLAVIX) TABLET PO SCH (08:46)
--- NOTE | 2017-07-13 11:35 | Progress Note-Cardiology ---
Cardiology SOAP Progress Note Subjective: Feels better today. Much less short of breath. Occ palp, when walking. No syncope or near-syncope. No cp. No leg swelling. No significant groin discomfort Objective: I&O/Vital Signs Vital Sign - Last 12Hours 07/13/17 07/13/17 07/13/17 07/13/17 00:00 00:25 01:02 04:00 Temp 98.3 Pulse 90 90 Resp 20 B/P (MAP) 140/81 Pulse Ox 97 O2 Delivery Room Air Room Air Room Air 07/13/17 07/13/17 07/13/17 07/13/17 04:30 07:00 08:00 08:36 Temp 97.9 96.4 Pulse 67 119 87 Resp 18 20 B/P (MAP) 141/83 140/94 Pulse Ox 96 96 O2 Delivery Room Air Room Air Room Air Weight (Pounds): 229 Weight (Ounces): 2.0 Weight (Calculated Kilograms): 103.754973 Side: right Groin site without hematoma: Yes Condition: DP/PT pulses palpable, extremity w/d/p Bruising: mild bruising Constitutional: AAO x 3 Respiratory: lungs clear to auscultation Cardiovascular: irregularly irregular, No JVD, S1 and S2 Gastrointestional: No tender, soft, round, audible bowel sounds Extremities: No significant edema Neurologic/Psychiatric: grossly intact Skin: No ulcerations Results/Procedures: Labs Laboratory Tests 07/13/17 04:51: Sodium Level 142, Potassium Level 3.5L, Chloride Level 107, Carbon Dioxide Level 25, Anion Gap 10, Blood Urea Nitrogen 19H, Creatinine 1.13, Estimat Glomerular Filtration Rate > 60, BUN/Creatinine Ratio 17, Glucose Level 100, Calcium Level 9.2, Magnesium Level 2.0 Microbiology 07/10/17 MRSA Screen - Final, Complete MRSA not isolated Laboratory Tests 07/12/17 05:13 07/13/17 04:51 A/P: Assessment: Dilated cardiomyopathy, both ischemic and non-ischemic Acute systolic CHF, now clinically compensated Echo of 07/13/17: LVEF approx 40-45%, mild MR & TR & AI; PASP approx 35 mmHg. Previous echo studies: Echo of 05/10/16 showed mild to mod conc LVH, LVEF 60%, PASP 50-55 mmHg. Last echo of 11/14/16: LVEF 50-55%, mod enlargement of LA, mild pum & mitral & tricusp & aortic regurg, PASP 40-45 mmHg Cardiac cath of 07-10-17: Coronary artery disease primarily consisting of 80 to 90% mid vessel stenosis in left anterior descending artery to which successful stenting was carried out using Alpine Xience 3.0 x 23 mm stent deployed at 12 atmospheres. The rest of the coronary vessels have diffuse calcification and ngjc-ed-menlkajz plaque. Global impairment of left ventricular systolic function with global hypokinesis and left ventricular ejection fraction 20-25%. Elevated left ventricular end-diastolic pressure and pulmonary wedge pressure, indicative of systolic left heart failure. No significant mitral regurgitation. PAF with RVR, first documented on an ECG of 04/09/17; recurrent post elec CV of Chronic tiredness of undetermined etiology, stable MPI of 04/11/16 showed no ischemia or infarction and LVEF 45% Pulmonary hypertension for which he is following with Dr. Hdz H/o PVCs. Holter of 07/12/15 showed freq PVCs that were mostly isolated and coupled and with some runs of 3 and 4 beats Hyperlipidemia HAYES, treated with CPAP followed by Dr. Hdz Pulm function tests, according to Dr Urena's office 12/22/14, have been normal H/o GERD and colon polyps and diverticular disease, followed by Dr Encinas and Dr Oma YOUNGER H/o postural dizziness, currently controlled He has has carotid f/u with [facility] and has been told he has mild plaque, last done in early 2016, according to Mr Laughlin Hypertension CKD stage 2, stable Borderline hypothyroidism Hypokalemia - likely d/t diuretic tx, improved Plan: I reviewed today's echo (summarized above) Additional K Continue current regimen; change to oral Close outpatient f/u Change amiodarone to 400 bid. Will plan on repeat elec CV in 1-2 weeks after starting amio Continue OAC I had a detailed discussion with him and his and answered questions BECKY MUJICA MD FACP FAC CCDS Jul 13, 2017 11:35
[2017-07-13] MEDS ORDERED: KCL 20 MEQ TAB (K-DUR) PO NR (11:45)
--- NOTE | 2017-07-13 11:46 | Cardiology Discharge Summary ---
Diagnosis/Chief Complaint Date of Admission 07/10/17 Date of Discharge 07/11/17 Final/Discharge Diagnosis Dilated cardiomyopathy, both ischemic and non-ischemic Acute systolic CHF, now clinically compensated Echo of 07/13/17: LVEF approx 40-45%, mild MR & TR & AI; PASP approx 35 mmHg. Previous echo studies: Echo of 05/10/16 showed mild to mod conc LVH, LVEF 60%, PASP 50-55 mmHg. Last echo of 11/14/16: LVEF 50-55%, mod enlargement of LA, mild pum & mitral & tricusp & aortic regurg, PASP 40-45 mmHg Cardiac cath of 07-10-17: Coronary artery disease primarily consisting of 80 to 90% mid vessel stenosis in left anterior descending artery to which successful stenting was carried out using Alpine Xience 3.0 x 23 mm stent deployed at 12 atmospheres. The rest of the coronary vessels have diffuse calcification and zvkj-qy-brsgkonx plaque. Global impairment of left ventricular systolic function with global hypokinesis and left ventricular ejection fraction 20-25%. Elevated left ventricular end-diastolic pressure and pulmonary wedge pressure, indicative of systolic left heart failure. No significant mitral regurgitation. PAF with RVR, first documented on an ECG of 04/09/17; recurrent post elec CV of Chronic tiredness of undetermined etiology, stable MPI of 04/11/16 showed no ischemia or infarction and LVEF 45% Pulmonary hypertension for which he is following with Dr. Hdz H/o PVCs. Holter of 07/12/15 showed freq PVCs that were mostly isolated and coupled and with some runs of 3 and 4 beats Hyperlipidemia HAYES, treated with CPAP followed by Dr. Hdz Pulm function tests, according to Dr Urena's office 12/22/14, have been normal H/o GERD and colon polyps and diverticular disease, followed by Dr Encinas and Dr Oma YOUNGER H/o postural dizziness, currently controlled He has has carotid f/u with [facility] and has been told he has mild plaque, last done in early 2017, according to Mr Laughlin Hypertension CKD stage 2, stable Borderline hypothyroidism Hypokalemia - likely d/t diuretic tx, improved Chief Complaint/HPI Chief Complaint/HPI Admitted for management of cardiomyopathy and ac systolic CHF Currently sable and wishes to go home Please refer to my progress note of the same day for further details Time spent in eval, interview, Q&A session, writing notes, reviewing echo, writing meds: 9:10 - 9:45 am and 11:20 - 11:45 am on 07/13/17 Discharge Summary Procedures None. Hospital Course Pending Labs Laboratory Tests 07/13/17 04:51: Sodium Level 142, Potassium Level 3.5, Chloride Level 107, Carbon Dioxide Level 25, Anion Gap 10, Blood Urea Nitrogen 19, Creatinine 1.13, Estimat Glomerular Filtration Rate > 60, BUN/Creatinine Ratio 17, Glucose Level 100, Calcium Level 9.2, Magnesium Level 2.0 Discussion & Recommendations Home Medications Reviewed patient Home Medication Reconciliation Form Discharge Home Medications: Reviewed and agree with Discharge Medication list on patient's Discharge Instruction sheet Clinical Quality Measures DVT/VTE Risk/Contraindication: Risk Factor Score Per Nursin RFS Level Per Nursing on Admit: 4+=Very High BECKY MUJICA MD FACP FAC CCDS Jul 13, 2017 11:46
[2017-07-13] MEDS ORDERED: FURO-124 PO (11:51)
[2017-07-13] MEDS ORDERED: CLOP75TA28 PO (11:51)
[2017-07-13] MEDS ORDERED: AMIO400T4 PO (11:51)
[2017-07-13] MEDS ORDERED: POTA-53 PO (11:51)
--- NOTE | 2017-07-13 11:52 | Discharge Inst-Cardiology ---
Discharge Inst-Cardiac Discharge Medications New Medications: Amiodarone HCl (Amiodarone HCl) 400 Mg Tablet 400 MG PO BID, #60 TAB 3 Refills Furosemide (Lasix) 40 Mg Tablet 40 MG PO BID, #60 TAB 3 Refills Potassium Chloride (K-Tab ER) 20 Meq Tablet.er 20 MEQ PO BID, #60 TAB 3 Refills Clopidogrel Bisulfate (Clopidogrel) 75 Mg Tablet 75 MG PO DAILY for 30 Days, #30 TAB 5 Refills Continued Medications: Alprazolam (Alprazolam) 1 Mg Tablet 1 MG PO HS PRN for SLEEP, TAB Apixaban (Eliquis) 5 Mg Tablet 5 MG PO BID, TAB Atorvastatin Calcium (Atorvastatin Calcium) 20 Mg Tablet 20 MG PO HS, TAB Cetirizine HCl/Pseudoephedrine (Allergy D-12 Tablet) 1 Each Tab.er.12h 1 TAB PO DAILY PRN for CONGESTION, TAB Cholecalciferol (Vitamin D3) (Vitamin D3) 2,000 Unit Capsule 2000 UNIT PO DAILY, CAP Cyanocobalamin (Vitamin B-12) (Vitamin B-12) 1,000 Mcg Tab.subl 1000 MCG SL DAILY, TAB Docusate Sodium (Docusate Sodium) 100 Mg Capsule 100 MG PO Q48H, CAP Gabapentin (Gabapentin) 100 Mg Capsule 100 MG PO BID, CAP Glucosamine/MSM/Chondroitin A (Glucosamine Chondroit MSM Tab) 1 Each Tablet 1 TAB PO DAILY, TAB Levothyroxine Sodium (Levothyroxine Sodium) 25 Mcg Tablet 25 MCG PO DAILY, TAB Metoclopramide HCl (Metoclopramide HCl) 5 Mg Tablet 5 MG PO BID, TAB Metoprolol Succinate (Metoprolol Succinate) 200 Mg Tab.er.24h 200 MG PO DAILY, TAB Montelukast Sodium (Montelukast Sodium) 10 Mg Tablet 10 MG PO HS, TAB Multivit-Min/FA/Lycopen/Lutein (Centrum Silver Men Tablet) 1 Each Tablet 1 TAB PO DAILY, TAB Oxymetazoline HCl (Afrin) 30 Ml [place] 1 SPRAY NS DAILY PRN for CONGESTION, SPRAY Pantoprazole Sodium (Pantoprazole Sodium) 40 Mg Tablet.dr 40 MG PO DAILY, TAB Polyvinyl Alcohol/Povidone (Artificial Tears Drops) 15 Ml Drops 1 DROP OU QID PRN for DRY EYES, DROPS Ubidecarenone (Co Q-10) 100 Mg Capsule 100 MG PO DAILY, CAP Vit C/Vit E/Lutein/Min/[place]-3 (Ocuvite Softgel) 1 Each Capsule 1 CAP PO HS, CAP Discontinued Medications: Diltiazem HCl (Cartia Xt) 240 Mg Cap.er.24h 240 MG PO DAILY, CAP Furosemide (Lasix) 20 Mg Tablet 20 MG PO DAILY, TAB Potassium Chloride (Klor-Con M20) 20 Meq Tab.er.prt 20 MEQ PO DAILY Patient Instructions Patient Instructions: F/u with Dr Krishnan next week BECKY KRISHNAN MD FACP [facility] CCDS Jul 13, 2017 11:52
[2017-07-13 12:00] VITALS: BP 124/81
[2017-07-13] MEDS ORDERED: SACU1TAB PO (14:54)
== END 2017-07-13 12:55 | disposition home or self-care (01) ==
LOC: CATH 09:58 → 4TH 14:05 → CATH 07-13 12:55
PROVIDERS: ATTEND Internal Medicine Cardiovascular Disease
DX: I25.10 Atherosclerotic heart disease of native coronary artery without angina pectoris (principal); I50.21 Acute systolic (congestive) heart failure; I48.0 Paroxysmal atrial fibrillation; I25.84 Coronary atherosclerosis due to calcified coronary lesion; N18.2 Chronic kidney disease, stage 2 (mild); I12.9 Hypertensive chronic kidney disease with stage 1 through stage 4 chronic kidney disease, or unspecified chronic kidney disease; E87.6 Hypokalemia; I27.2 Other secondary pulmonary hypertension; E78.5 Hyperlipidemia, unspecified; G47.33 Obstructive sleep apnea (adult) (pediatric); Z79.01 Long term (current) use of anticoagulants; Z79.899 Other long term (current) drug therapy
CPT/HCPCS: 36415; 80048; 80053; 80061; 82962; 83735; 83880; 84443; 85025; 85027; 85610; 85730; 87081; 93005; 93306; 93460

== ENCOUNTER → 2017-07-16 | Outpatient (CLI) | payer MEDICARE, OTHER ==
[~2017-07-16] MED LIST changes: +ALPR1TAB7 PO; +AMIO400T4 PO; +CLOP75TA28 PO; +FURO-124 PO; +GABA-486 PO; +METO5TAB2 PO; +PANT40TA3 PO; +POTA-53 PO; +POTA10TA14 PO; +POTA20TA8 PO; +SACU1TAB PO; +VIT1CAPS9 PO
[2017-07-16 12:37] LABS: CALCIUM 9.5 MG/DL (8.5-10.1); CREATININE SERUM 1.42 MG/DL (0.60-1.30); MAGNESIUM 2.1 MG/DL (1.8-2.4); POTASSIUM 3.7 MMOL/L (3.6-5.0)
== END ==
LOC: RAD 12:09
PROVIDERS: ATTEND Nurse Practitioner Family
DX: E87.6 Hypokalemia (principal)
CPT/HCPCS: 36415; 80048; 83735

== ENCOUNTER → 2017-07-20 | Outpatient (CLI) | payer MEDICARE, OTHER ==
--- NOTE | 2017-07-20 15:27 | Diagnostic Imaging Report ---
PROCEDURE: CT abdomen and pelvis without contrast. TECHNIQUE: Multiple contiguous axial images were obtained through the abdomen and pelvis without the use of intravenous contrast. INDICATION: Hematuria. Comparison with 04/12/2017. FINDINGS: Bilateral nonobstructing nephrolithiasis is again demonstrated. No hydronephrosis is present. Ureters are not dilated. Bladder is not well visualized due to beam hardening artifact from bilateral hip arthroplasties. Bladder is not distended. Bilateral renal cysts are present. See CT scan report from 04/12/2017 which was performed with contrast. The lung bases have cleared. Liver appears normal. Gallbladder is absent. Bile ducts are not dilated. Pancreas and spleen are normal. There is benign calcification noted in the left adrenal gland which is stable. Right adrenal gland is normal. Stomach and small bowel are not distended. Colon shows normal stool and gas pattern. There is diverticulosis of the sigmoid colon without diverticulitis. No free air or free fluid. IMPRESSION: 1. Bilateral nonobstructing nephrolithiasis again noted. 2. Bilateral renal cysts which were described on contrasted CT scan of 04/12/2017. 3. There are no acute changes when compared with previous exam. There has been clearing of bibasilar pleural effusions. Dictated by: Dictated on workstation # [id number]
== END ==
LOC: RAD 14:40
PROVIDERS: ATTEND Urology
DX: N20.0 Calculus of kidney (principal); N28.1 Cyst of kidney, acquired
CPT/HCPCS: 74176

== ENCOUNTER → 2017-07-24 | Day surgery (SDC) | payer MEDICARE, OTHER ==
[~2017-07-24] VITALS: Ht 175.3 cm; Wt 103.9 kg
[~2017-07-24] MED LIST changes: +INFLUENZA TRIvalent 2017-2018 0.5 ML/45 MCG SYR IM ONE; +MIDAZOLAM 5 MG/5 ML (VERSED) VIAL ONE; +NS IV 1000 ML 1,000 ML ONE; +proPOfol 200 MG/20 ML (DIPRIVAN) VIAL IV ONE
[2017-07-24 09:54] VITALS: BP 151/117
[2017-07-24 09:58] LABS: MEAN PLATELET VOLUME 12.4 FL (7.4-10.4); RED BLOOD COUNT 5.31 10^6/uL (4.35-5.85); RED CELL DISTRIBUTION WIDTH 14.2 % (10.0-14.5); WHITE BLOOD COUNT 6.4 10^3/uL (4.3-11.0)
[2017-07-24 10:13] LABS: INR 1.3 (0.8-1.4); PROTHROMBIN TIME PATIENT 16.4 SEC (12.2-14.7)
[2017-07-24 10:22] LABS: ALBUMIN 4.4 GM/DL (3.2-4.5); BILIRUBIN,TOTAL 1.5 MG/DL (0.1-1.0); CALCIUM 9.9 MG/DL (8.5-10.1); CREATININE SERUM 1.82 MG/DL (0.60-1.30); POTASSIUM 3.4 MMOL/L (3.6-5.0); TOTAL PROTEIN 7.2 GM/DL (6.4-8.2)
[2017-07-24 10:31] VITALS: BP 139/92
[2017-07-24 10:35] VITALS: BP 136/89
--- NOTE | 2017-07-24 10:41 | Cardiac Procedure Note-CS/ASA ---
Pre-Procedure Note Pre-Op Procedure Note H&P Reviewed The H&P was reviewed, patient examined and no changes noted. Date H&P Reviewed: Jul 24, 2017 Time H&P Reviewed: 10:15 Conscious Sedation Pre-Proced Time Reviewed: 10:15 ASA Class: 3 Airway Mallampati Classification: ([place] appropriate class) I. II. III, IV Lungs Heart ASA score ASA 1: a normal healthy patient ASA 2: a patient with a mild systemic disease (mid diabetes, controlled hypertension, obesity ASA 3: a patient with a severe systemic disease that limits activity (angina , COPD, prior Myocardial infarction) ASA 4: a patient with an incapacitating disease that is a constant threat to life (CHF, renal failure) ASA 5: a moribund patient not expected to survive 24 hrs. (ruptured aneurysm) ASA 6: a declared brain patient whose organs are being harvested. For emergent operations, add the letter E after the classification Grade 3 Sedation Plan: Analgesia, Amnesia, Plan communicated to team members, Discussed options with patient/fam, Discussed risks with patient/fam Note The patient is an appropriate candidate to undergo the planned procedure, sedation, and anesthesia. The patient immediately re-assessed prior to indication. BECKY MUJICA MD FACP FAC CCDS Jul 24, 2017 10:41
[2017-07-24 10:45] VITALS: BP 110/81
[2017-07-24 10:55] VITALS: BP 118/83
--- NOTE | 2017-07-24 13:27 | Progress Note-Standard ---
Standard Progress Note Progress Notes/Assess & Plan Date Seen by Provider: Jul 24, 2017 Time Seen by Provider: 10:28 Final Diagnosis To [facility], Patient report obtained from [facility] RN. Brief history obtained form patient. in room. 70mg propofol given for sedation. Tolerated procedure well. Care and report to [facility] RN. MARIELA SHEETS CRNA Jul 24, 2017 13:27
--- NOTE | 2017-07-24 20:28 | OPERATIVE REPORT ---
DATE OF SERVICE: 07/24/2017 EXTERNAL ELECTRICAL CARDIOVERSION REPORT PREOPERATIVE DIAGNOSIS: Atrial flutter. POSTOPERATIVE DIAGNOSIS: Sinus rhythm. PROCEDURE: External electrical cardioversion. The patient is a 71-year-old gentleman who has had symptomatic atrial fibrillation that has been difficult to control with medications alone. He has been cardioverted electrically and went back into atrial fibrillation with symptoms. He has been initiated on amiodarone therapy and electrocardioversion was carried out the day after having obtained an informed consent. He has chronically been anticoagulated and has remained compliant with his anticoagulation. Short acting anesthesia was administered by the nurse ground instructor basic. Under short acting anesthesia, we performed external electrical cardioversion with 120 joules synchronized shock, which restored the sinus rhythm. The patient tolerated the procedure well. Job ID: [id number] DocumentID: [id number] Dictated Date: 07/24/2017 10:37:45 [employer] Equipment Mechanic Date: 07/24/2017 20:27:41 Dictated By: BECKY MUJICA MD, MA, FACP, FACC,
== END ==
LOC: CATH 08:58
PROVIDERS: ATTEND Internal Medicine Cardiovascular Disease
DX: I48.92 Unspecified atrial flutter (principal); I48.0 Paroxysmal atrial fibrillation; I50.20 Unspecified systolic (congestive) heart failure; I27.20 Pulmonary hypertension, unspecified; E78.5 Hyperlipidemia, unspecified; G47.33 Obstructive sleep apnea (adult) (pediatric); I12.9 Hypertensive chronic kidney disease with stage 1 through stage 4 chronic kidney disease, or unspecified chronic kidney disease; N18.2 Chronic kidney disease, stage 2 (mild); Z79.899 Other long term (current) drug therapy; Z79.01 Long term (current) use of anticoagulants
CPT/HCPCS: 36415; 80053; 80061; 85027; 85610; 85730; 87081; 92960; 93005

== ENCOUNTER → 2017-09-10 | Outpatient (CLI) | payer MEDICARE, OTHER ==
[~2017-09-10] MED LIST changes: -INFLUENZA TRIvalent 2017-2018 0.5 ML/45 MCG SYR IM ONE; -METO200T32 PO; +METO200T4 PO; -MIDAZOLAM 5 MG/5 ML (VERSED) VIAL ONE; -NS IV 1000 ML 1,000 ML ONE; -proPOfol 200 MG/20 ML (DIPRIVAN) VIAL IV ONE
[2017-09-10 09:37] LABS: CALCIUM 9.5 MG/DL (8.5-10.1); CREATININE SERUM 1.41 MG/DL (0.60-1.30); POTASSIUM 3.6 MMOL/L (3.6-5.0)
== END ==
LOC: LAB 09:09
PROVIDERS: ATTEND Internal Medicine Cardiovascular Disease
DX: I42.0 Dilated cardiomyopathy (principal); I10 Essential (primary) hypertension
CPT/HCPCS: 36415; 80048

== ENCOUNTER 2017-09-29 18:51 | Emergency (ER) | payer MEDICARE, OTHER ==
[~2017-09-29] VITALS: Ht 175.3 cm; Wt 104.3 kg
--- NOTE | 2017-09-29 19:57 | ED Fall/Injury ---
General Chief Complaint: Laceration Stated Complaint: FALL Nursing Triage Note: Pt was carrying a chair when he tripped and fell, hitting his face, has a laceration to bottom lip that is bleeding pt has also chipped his front teeth and they are loose. Denies LOC. Source: patient Exam Limitations: no limitations History of Present Illness Time seen by provider: 19:43 Initial Comments Here with complaint of facial injury after tripping while carrying a kitchen chair and falling forward and hitting his face on the chair. Complains of laceration to the lower left as well as bleeding and pain to the upper lip and frontal teeth. Does have a chipped front teeth to the central incisors. Denies neck pain or other injuries. Occurred: just prior to arrival Severity: moderate Injuries/Pain Location: face Context: unknown Loss of Consciousness: no loss of consciousness Associated Symptoms (Fall): No Abdominal Pain, No Chest Pain, No Headache, No Nausea/Vomiting, No Neck Pain, No Vision Changes Allergies and Home Medications Allergies Coded Allergies: No Known Drug Allergies (Verified , 07/10/17) Home Medications Alprazolam 1 Mg Tablet, 1 MG PO HS PRN for SLEEP, (Reported) Amiodarone HCl 400 Mg Tablet, 400 MG PO BID, #60 Ref 3 Prescribed by: BECKY MUJICA on 07/13/17 1151 Apixaban 5 Mg Tablet, 5 MG PO BID, (Reported) Atorvastatin Calcium 20 Mg Tablet, 20 MG PO HS, (Reported) Cetirizine HCl/Pseudoephedrine 1 Each Tab.er.12h, 1 TAB PO DAILY PRN for CONGESTION, (Reported) Cholecalciferol (Vitamin D3) 2,000 Unit Capsule, 2,000 UNIT PO DAILY, (Reported) Clopidogrel Bisulfate 75 Mg Tablet, 75 MG PO DAILY for 30 Days, #30 Ref 5 Prescribed by: BECKY MUJICA on 07/13/17 1151 Cyanocobalamin (Vitamin B-12) 1,000 Mcg Tab.subl, 1,000 MCG SL DAILY, (Reported) Docusate Sodium 100 Mg Capsule, 100 MG PO Q48H, (Reported) Furosemide 40 Mg Tablet, 40 MG PO BID, #60 Ref 3 Prescribed by: BECKY MUJICA on 07/13/17 1151 Gabapentin 100 Mg Capsule, 100 MG PO BID, (Reported) Glucosamine/MSM/Chondroitin A 1 Each Tablet, 1 TAB PO DAILY, (Reported) Levothyroxine Sodium 25 Mcg Tablet, 25 MCG PO DAILY, (Reported) Metoclopramide HCl 5 Mg Tablet, 5 MG PO BID, (Reported) Metoprolol Succinate 200 Mg Tab.er.24h, 200 MG PO DAILY, (Reported) Montelukast Sodium 10 Mg Tablet, 10 MG PO HS, (Reported) Multivit-Min/FA/Lycopen/Lutein 1 Each Tablet, 1 TAB PO DAILY, (Reported) Oxymetazoline HCl 30 Ml [place], 1 SPRAY NS DAILY PRN for CONGESTION, (Reported) Pantoprazole Sodium 40 Mg Tablet.dr, 40 MG PO DAILY, (Reported) Polyvinyl Alcohol/Povidone 15 Ml Drops, 1 DROP OU QID PRN for DRY EYES, ( Reported) Potassium Chloride 20 Meq Tablet.er, 20 MEQ PO BID, #60 Ref 3 Prescribed by: BECKY MUJICA on 07/13/17 1151 Sacubitril/Valsartan 1 Each Tablet, 1 EACH PO BID, #60 Prescribed by: BECKY MUJICA on 07/13/17 1454 Ubidecarenone 100 Mg Capsule, 100 MG PO DAILY, (Reported) Vit C/Vit E/Lutein/Min/Shepherd-3 1 Each Capsule, 1 CAP PO HS, (Reported) Constitutional: see HPI, No chills, No fever Eyes: No Symptoms Reported Ears, Nose, Mouth, Throat: see HPI, denies nose pain, denies epistaxis, mouth pain, loose teeth Respiratory: No dyspnea on exertion, No short of breath Cardiovascular: No chest pain, No edema Gastrointestinal: No abdominal pain, No nausea, No vomiting Genitourinary: no symptoms reported Musculoskeletal: no symptoms reported Skin: see HPI, lesions (lower lip laceration) Psychiatric/Neurological: No Symptoms Reported All Other Systems Reviewed Negative Unless Noted: Yes Past Myhpewn-Arekxz-Uxziau Hx Patient Social History Alcohol Use: Denies Use Alcohol Beverage of Choice: Beer, [place] Recreational Drug Use: No Smoking Status: Never a Smoker 2nd Hand Smoke Exposure: No Recent Foreign Travel: No Contact w/Someone Who Travel: No Recent Infectious Disease Expo: No Recent Hopitalizations: No Physical Abuse: No Sexual Abuse: No Mistreated: No Fear: No Immunizations Up To Date Tetanus Booster (TDap): Less than 5yrs PED Vaccines UTD: No Date of Pneumonia Vaccine: Jul 24, 2016 Date of Influenza Vaccine: Aug 30, 2017 Seasonal Allergies Seasonal Allergies: Yes Surgeries History of Surgeries: Yes (BILATERAL CARPAL TUNNEL; KIMBERLEE. HIP REPLACEMENTS; ROTATOR CUFF ; TOE; THUMB; ) Surgeries: Appendectomy, Cardiac, Gallbladder, Joint Replacement Respiratory History of Respiratory Disorde: Yes (MILD) Respiratory Disorders: Asthma, Sleep Apnea Currently Using CPAP: Yes Currently Using BIPAP: No Cardiovascular History of Cardiac Disorders: Yes (CARDIOVERSION, anticoagulated) Cardiac Disorders: Atrial Fibrillation, High Cholesterol, Hypertension Neurological History of Neurological Disord: No Reproductive System Hx Reproductive Disorders: No Sexually Transmitted Disease: No HIV/AIDS: No Genitourinary Genitourinary Disorders: Kidney Stones Gastrointestinal History of Gastrointestinal Di: Yes (ABDOMINAL PAIN/BLOATING) Gastrointestinal Disorders: Gastroesophageal Reflux, Diverticulosis, Polyps Musculoskeletal History of Musculoskeletal Dis: Yes Musculoskeletal Disorders: Degenerate Disk Disease, Arthritis, Chronic Back Pain Endocrine History of Endocrine Disorders: Yes HEENT History of HEENT Disorders: Yes Loss of Vision: Bilateral Hearing Impairment: Hard of Hearing Cancer History of Cancer: No Psychosocial History of Psychiatric Problem: No Suicide Risk Score: 1 Integumentary History of Skin or Integumenta: No Blood Transfusions History of Blood Disorders: No Adverse Reaction to a Blood Tr: No Reviewed Nursing Assessment Reviewed/Agree w Nursing PMH: Yes Family Medical History Significant Family History: No Pertinent Family Hx Family Medial History: Patient reports no known family medical history. Physical Exam Vital Signs Vital Sign - Last 12Hours 09/29/17 19:00 Temp 96.6 Pulse 55 Resp 18 B/P (MAP) 175/96 (122) Pulse Ox 96 O2 Delivery Room Air Capillary Refill : Less Than 3 Seconds General Appearance: WD/WN, no apparent distress HEENT: PERRL/EOMI, TMs normal, other (lower lip with 2 cm laceration. Upper lip frenulum lacerated. The middle and lateral incisor on the right is loose with gum tissue laceration above the teeth.) Neck: non-tender, full range of motion, supple, normal inspection Cardiovascular: regular rate, rhythm, no murmur, bradycardia Respiratory: lungs clear, normal breath sounds Gastrointestinal: non tender, soft Back: normal inspection, no CVA tenderness, no vertebral tenderness Extremities: non-tender, normal inspection Neurologic/Psychiatric: alert, oriented x 3 Skin: normal color, warm/dry [place] Coma Score Best Eye Response: (4) Open Spontaneously Best Verbal Response: (5) Oriented Best Motor Response: (6) Obeys Commands Laceration Repair #1: Wound Location: Face Other Wound Location Lower lip Wound Length (cm): 2 Wound's Depth, Shape: superficial, irregular Wound Explored: contaminated Irrigated w/ Saline (ccs): 50 Betadine Prep?: No Anesthesia: 1% Lidocaine Volume Anesthetic (ccs): 5 Wound Debrided: minimal Suture: Chromic Suture Size: 4-0 Number of Sutures: 7 Layer Closure?: 1 Number Deep Layer Sutures: 0 Sterile Dressing Applied?: No Progress Wound closure with simple interrupted sutures. Bleeding controlled after an with direct pressure. Tolerated procedure well. No complications. Laceration Repair #2: Wound Location: Face Other Wound Location Upper lip Wound Length (cm): 1 Wound's Depth, Shape: superficial Betadine Prep?: Yes Anesthesia: 1% Lidocaine Volume Anesthetic (ccs): 1 Wound Debrided: minimal Suture Size: 4-0 Number of Sutures: 1 Layer Closure?: 1 Number Deep Layer Sutures: 0 Progress Small skin flap to upper lip repaired on the right side of midline. 1 suture to hold down flat. Tolerated procedure well. No complications. Laceration Repair #3: Wound Location: Face Other Wound Location Upper jaw middle and lateral incisor on right Wound Length (cm): 3 Wound's Depth, Shape: irregular Wound Explored: contaminated Anesthesia: 1% Lidocaine Volume Anesthetic (ccs): 4 Suture: Prolene Suture Size: 4-0 Number of Sutures: 3 Layer Closure?: 1 Number Deep Layer Sutures: 0 Progress Lateral incisors and alveolar bone loose. Teeth and bone stabilized by placing 3 sutures to the adjoining teeth to hold in place. Teeth more secure afterwords. Anesthetized via inferior alveolar block on right and local with in the gum tissue. Tolerated procedure well with no complications. Progress/Results/Core Measures Results/Orders My Orders Orders - LEI RIOS MD Ct Head/Face/Cervical Wo (09/29/17 19:50) Dipht,Pertuss(Acell),Tet Adult (Boostrix (09/29/17 19:58) Lidocaine/Epi 1% 1:100,000 (Xylocaine /E (09/29/17 19:58) Fentanyl Injection (Sublimaze Injection (09/29/17 20:20) Fentanyl Injection (Sublimaze Injection (09/29/17 20:21) Lidocaine 1% (Xylocaine 1%) (09/29/17 20:36) Lidocaine 1% Injection (Xylocaine 1% Inj (09/29/17 21:16) Amoxicillin/Clavulanate Tablet (Augmenti (09/29/17 22:03) Hydrocodone/Apap 7.5/325 Tab (Lortab 7. (09/29/17 22:03) Rx-Hydrocodone/Apap 5-325 Mg (Rx-Vicodin (09/29/17 22:15) Vital Signs/I&O Vital Sign - Last 12Hours 09/29/17 19:00 Temp 96.6 Pulse 55 Resp 18 B/P (MAP) 175/96 (122) Pulse Ox 96 O2 Delivery Room Air Blood Pressure Mean: 122 Progress Note : Progress Note Seen and evaluated. CT head, face and neck ordered. Patient is on blood thinners. Update tetanus. CT results noted. Repair of upper and lower lip completed. Stabilized right middle and lateral incisor with suture although difficult repair. Bleeding controlled afterwards with direct pressure. Patient instructed on soft diet and the need to follow-up on Sunday morning with his dentist and/or Dr. Bledsoe. He has history with both Dr. Ryan Turner and Dr. Bledsoe and will call for appointment first thing. Copy of chart to Dr. Bledsoe. Augmentin 875 one tab by mouth given due to interrupted gum tissue and fracture of the alveolar bone. We will continue this outpatient. Patient did receive 50 g of fentanyl IV which did help with his pain. After procedure, hydrocodone 7.5 mg 1 tab by mouth given. Discharged home with return precautions. Patient and family verbalize understanding instructions and agreement with plan. Diagnostic Imaging Diagonstic Imaging: CT Plain Films/CT/US/NM/MRI: facial bones, c-spine, head Comments No acute intracranial hemorrhage. No evidence of acute territorial ischemia. Mildly comminuted fracture involving the anterior cortex of the right anterior maxillary alveolar ridge. There is loosening of the right incisors. Advanced degenerative changes in the cervical spine with no acute osseous abnormality seen. Departure Impression Impression: Primary Impression: Laceration of lip, complicated Qualified Codes: S01.511A - Laceration without foreign body of lip, initial encounter Additional Impression: Avulsion of tooth due to trauma Qualified Codes: S03.2XXA - Dislocation of tooth, initial encounter Disposition: HOME, SELF-CARE Condition: Stable Departure-Patient Inst. Referrals: HIEU PILLAI MD (PCP/Family) Primary Care Physician GERHARD BLEDSOE DDS Patient Instructions: Fractured Tooth (DC), Laceration Repair With Stitches (DC ) Add. Discharge Instructions: All discharge instructions reviewed with patient and/or family. Voiced understanding. You should be on liquid diet until cleared by Dr. Bledsoe or Dr. Turner. Take medications as directed. It is important that you do not bite down on the teeth that are injured and ensure that you do not move the teeth or bite on the sutures. It is equally important that he follow-up on Sunday with Dr. Bledsoe or Dr. Turner. Take medications as directed. Return for worse pain, fever, vomiting , weakness, breathing problems, persistent bleeding or other concerns as needed. You may continue your home medications as directed. Scripts Hydrocodone/Acetaminophen (Hydrocodon -Acetaminophen 5-325) 1 Each Tablet 1-2 EACH PO Q6H Y for PAIN-MODERATE, #20 TAB 0 Refills Prov: LEI RIOS MD 09/29/17 Amoxicillin/Potassium Clav (Augmentin 875-125 Tablet) 1 Each Tablet 1 EACH PO BID, #14 TAB 0 Refills Prov: LEI RIOS MD 09/29/17 Copy Copies To 1: GERHARD BLEDSOE DDS Copies To 2: HIEU PILLAI MD, TIMOTHY D MD Sep 29, 2017 19:57
[2017-09-29] MEDS ORDERED: LIDOCAINE/EPI 1%-1:100,000 (XYLOCAINE) 20ML INJ STA (19:58)
[2017-09-29] MEDS ORDERED: TETANUS,DIPTH,PERTUSS P/F (BOOSTRIX) 0.5 ML VIAL IM STA (19:58)
[2017-09-29] MEDS ORDERED: fentaNYL INJECTION 100 MCG/2 ML AMP IVP STA (20:20)
[2017-09-29] MEDS ORDERED: fentaNYL INJECTION 100 MCG/2 ML AMP ONE (20:21)
[2017-09-29] MEDS ORDERED: LIDOCAINE 1% INJ 50 ML (XYLOCAINE) VIAL ONE (20:36)
[2017-09-29] MEDS ORDERED: LIDOCAINE 1% INJ 20 ML (XYLOCAINE) VIAL INJ STA (21:16)
[2017-09-29] MEDS ORDERED: HYDROcodone/APAP 7.5 MG/325 MG (LORTAB, LORCET PLUS) TABLET PO STA (22:03)
[2017-09-29] MEDS ORDERED: AUGMENTIN 875 MG TAB (AMOXICILLIN/CLAVULANATE) PO STA (22:03)
[2017-09-29] MEDS ORDERED: RX-HYDROCODONE/APAP 5/325 MG #4 TAB PK PO PRN (22:15)
[2017-09-29] MEDS ORDERED: HYDR-3812 PO (22:24)
[2017-09-29] MEDS ORDERED: AMOX-358 PO (22:24)
[2017-09-29 22:51] VITALS: BP 135/75
--- NOTE | 2017-09-29 23:12 | Diagnostic Imaging Report ---
PROCEDURE: CT head, face, and cervical spine without contrast. TECHNIQUE: Multiple contiguous axial images were obtained through the head, neck, and facial bones without the use of intravenous contrast. Sagittal and coronal reformations through the cervical spine and facial bones were also performed. INDICATION: Fall, hit chin on a chair. Laceration to the lip and loosened teeth in the right side of the mouth. COMPARISON: None. FINDINGS: CT head: The ventricles and cortical sulci are diffusely prominent. No acute intracranial hemorrhage is seen. There is no midline shift or significant mass effect seen. No acute territorial ischemia is seen. The calvarium appears intact. The orbits appear intact. CT face: The orbits and maxillary sinuses are intact. The pterygoid plates are intact. There is a small fracture involving the anterior right maxilla along the anterior alveolar ridge, which does not appear to extend into the posterior cortex or sinuses. There is loosening of the right incisors. The mandible appears intact. There is soft tissue edema overlying the fracture site. The paranasal sinuses appear clear. CT cervical spine: No acute fracture or dislocation is seen in the cervical spine. There is straightening of the cervical lordosis, with mild anterolisthesis at C7-T1. There are advanced degenerative changes at C5-6 and C6-7 resulting in mild spinal canal stenosis and bilateral foraminal stenosis at that level. There is multilevel facet arthropathy present. The soft tissue contents of the spinal canal are suboptimally evaluated by CT; however, no bony fragment or large hematoma is seen. The prevertebral soft tissues are unremarkable. IMPRESSION: 1. No acute intracranial hemorrhage. No CT evidence of acute territorial ischemia. 2. Mildly comminuted fracture involving the anterior cortex of the right anterior maxilla alveolar ridge. There is loosening of the right incisors. 3. Advanced degenerative changes in the cervical spine with no acute osseous abnormality seen. Dictated by: Dictated on workstation # [id number]
== END 2017-09-29 22:41 | disposition home or self-care (01) ==
LOC: EDUNIT# 18:51 → ER 18:52
DX: S03.2XXA Dislocation of tooth, initial encounter (principal); S01.511A Laceration without foreign body of lip, initial encounter; M47.9 Spondylosis, unspecified; K21.9 Gastro-esophageal reflux disease without esophagitis; E78.00 Pure hypercholesterolemia, unspecified; I10 Essential (primary) hypertension; I48.91 Unspecified atrial fibrillation; J45.909 Unspecified asthma, uncomplicated; G47.30 Sleep apnea, unspecified; Z23 Encounter for immunization; Z90.49 Acquired absence of other specified parts of digestive tract; Z96.651 Presence of right artificial knee joint; Z96.652 Presence of left artificial knee joint; W01.190A Fall on same level from slipping, tripping and stumbling with subsequent striking against furniture, initial encounter
CPT/HCPCS: 12051; 70450; 70486; 72125; 90715

== ENCOUNTER 2017-09-30 10:28 | Emergency (ER) | payer MEDICARE, OTHER ==
[~2017-09-30] VITALS: Ht 175.3 cm; Wt 104.3 kg
[~2017-09-30 10:28] MED LIST changes: +AMOX-358 PO
[2017-09-30] MEDS ORDERED: TRANEXAMIC ACID 100 MG/ML 10 ML INJECTION IV ONE (11:00)
--- NOTE | 2017-09-30 11:46 | ED Suture Removal/Wound Check ---
Suture/Wound Re-check Suture Removal/Wound Recheck : Progress Patient presents with concerns about persistent oozing of blood from a right lower lip laceration that was repaired last night in the ER. He also has a piece of gauze tightly adhered to the lower lip. He is being seen for a wound check at no charge. The adhered dressing was loosened with normal saline and a few drops of peroxide to break up the blood. Subtle oozing was present after the procedure. Direct pressure was applied with sterile gauze and TXA. Bleeding did eventually resolve. General Appearance: WD/WN, no apparent distress Physical Exam Vital Signs Vital Sign - Last 12Hours 09/30/17 09/30/17 10:39 11:52 Temp 98.1 Pulse 64 Resp 20 B/P (MAP) 158/91 Pulse Ox 97 Capillary Refill : General Appearance: WD/WN, no apparent distress HEENT: PERRL/EOMI, other (Laceration on the right lower lip has been repaired with absorbable suture. On the right side of the lip there is an area of subtle blood oozing. There is a piece of gauze tightly adhered to the wound area with dried blood) Departure Impression Impression: Primary Impression: Visit for wound check Additional Impression: Chronic anticoagulation Disposition: 01 HOME, SELF-CARE Condition: Improved Departure-Patient Inst. Decision time for Depature: 11:45 Referrals: HIEU PILLAI MD (PCP/Family) Primary Care Physician Patient Instructions: NO INSTRUCTIONS GIVEN Add. Discharge Instructions: Do not take tonight's dose of Eliquis. You may resume tomorrow morning if bleeding has stopped. If bleeding resumes, apply a nonstick ointment such as antibiotic ointment or Vaseline apply direct pressure for 20 minutes. Return to the emergency room if this does not stop the bleeding. All discharge instructions reviewed with patient and/or family. Voiced understanding. WALT REYES MD Sep 30, 2017 11:46
[2017-09-30 11:52] VITALS: BP 158/91
== END 2017-09-30 11:52 | disposition home or self-care (01) ==
LOC: EDUNIT# 10:28 → ER 10:30
DX: S01.511D Laceration without foreign body of lip, subsequent encounter (principal); D68.9 Coagulation defect, unspecified; X58.XXXD Exposure to other specified factors, subsequent encounter

== ENCOUNTER → 2017-10-08 | Outpatient (CLI) | payer MEDICARE, OTHER | LOC: CARD 09:39 | PROVIDERS: ATTEND Nurse Practitioner Family | DX: I42.0 Dilated cardiomyopathy (principal); I10 Essential (primary) hypertension | CPT/HCPCS: 93306 ==

== ENCOUNTER → 2017-11-13 | Outpatient (CLI) | payer MEDICARE, OTHER ==
[~2017-11-13] MED LIST changes: +ACHD5005 PO; -AMIO400T4 PO; +AMIO400T5 PO; -HYDR-3812 PO; -METO200T4 PO; +METO200T48 PO
--- NOTE | 2017-11-13 14:50 | Diagnostic Imaging Report ---
PROCEDURE: MRI lumbar spine. TECHNIQUE: Multiplanar, multisequence MRI of the lumbar spine was performed without contrast. INDICATION: Chronic low back pain. FINDINGS: There is some left convexity degenerative lumbar rotoscoliosis. The vertebral body heights are well maintained. There is no spondylolysis or spondylolisthesis. No fractures are identified. Conus medullaris is seen at L1 and is normal in appearance. The T12-L1 disc is unremarkable. There is some facet disease at this level. At L1-2, there is loss of disc height and signal intensity. There is some mild annular bulging. There is facet disease with thickening of the ligamentum flavum. There is moderate trefoil spinal stenosis with some encroachment upon the lateral recess bilaterally. There is mild bilateral neural foraminal encroachment. At L2-3, there is loss of disc height and signal intensity. There is facet disease with thickening of the ligamentum flavum. There is moderate central spinal stenosis with encroachment upon the lateral recess bilaterally. There is moderately severe bilateral neural foraminal encroachment. At L3-4, there is loss of disc height and signal intensity. There are degenerative changes of the endplates. There is facet disease and thickening of the ligamentum flavum. There is moderately severe trefoil spinal stenosis with encroachment upon the lateral recess bilaterally, left greater than right. There is moderately severe bilateral neural foraminal encroachment. At L4-5, there is loss of disc height and signal intensity. There is some facet disease with thickening of the ligamentum flavum. There is mild central spinal stenosis with encroachment upon the lateral recess bilaterally. There is moderate right and [id number]-[id number] left neural foraminal encroachment. At L5-S1, there is loss of disc height and signal intensity. There is some annular bulging and facet disease. There is encroachment upon the lateral recess bilaterally, left greater than right. There is moderately severe bilateral neural foraminal encroachment. The abdominal aorta is nonaneurysmal. The kidneys are unremarkable. IMPRESSION: Moderate diffuse lumbar spondylosis and multilevel degenerative disc disease as detailed above. Dictated by: Dictated on workstation # [id number]
--- NOTE | 2017-11-13 14:52 | Diagnostic Imaging Report ---
PROCEDURE: MR imaging cervical spine without contrast. TECHNIQUE: Multiplanar, multisequence MR imaging of the cervical spine was performed without contrast. INDICATION: Chronic neck pain. FINDINGS: The alignment of the cervical spine is normal. The vertebral body heights are well maintained. The prevertebral soft tissues are within normal limits. Posterior fossa is unremarkable. The visualized portions of the spinal cord are normal in signal intensity and morphology. C2-C3 is unremarkable. At C3-C4, there is loss of disc height and signal intensity. There is some broad-based annular bulging and bilateral uncovertebral joint hypertrophy. There is vzhrgitx-[id number] left neuroforaminal encroachment and moderate right neuroforaminal encroachment. At C4-C5, there is mild broad-based annular bulging and bilateral uncovertebral joint hypertrophy. There is slight effacement of the ventral thecal sac and moderate bilateral neuroforaminal encroachment. At C5-C6, there is broad-based annular bulging and bilateral uncovertebral joint hypertrophy. There is narrowing of the AP diameter of the spinal canal to 10 mm. There is moderate bilateral neuroforaminal encroachment. At C6-C7, there is broad-based annular bulging. There is narrowing of the AP diameter of the spinal canal to 8 mm. There is bilateral uncovertebral joint hypertrophy with [id number] bilateral neuroforaminal encroachment. At C7-T1, there is left uncovertebral joint hypertrophy with moderately severe left neuroforaminal encroachment. There are no other focal soft tissue abnormalities. IMPRESSION: Moderately severe cervical spondylosis and multilevel degenerative disc disease as detailed above. Dictated by: Dictated on workstation # [id number]
== END ==
LOC: RAD 13:11
PROVIDERS: ATTEND Orthopaedic Surgery Orthopaedic Surgery of the Spine
DX: M48.02 Spinal stenosis, cervical region (principal); M48.061 Spinal stenosis, lumbar region without neurogenic claudication; M51.26 Other intervertebral disc displacement, lumbar region; M41.86 Other forms of scoliosis, lumbar region; M89.38 Hypertrophy of bone, other site; M50.21 Other cervical disc displacement, high cervical region
CPT/HCPCS: 72141; 72148

== ENCOUNTER 2018-04-22 07:29 | Inpatient (IN) | payer MEDICARE, OTHER ==
[~2018-04-22] VITALS: Ht 175.3 cm; Wt 105.2 kg
[~2018-04-22 07:29] MED LIST changes: +CARB1TAB19 PO; +CARB1TAB40 PO; +FURO40TA4 PO; +LEVO50TA6 PO; +SACU1TAB7 PO
[2018-04-22] MEDS ORDERED: DOCUSATE SODIUM 100 MG (COLACE) CAP PO PRN (07:30)
[2018-04-22] MEDS ORDERED: morphine INJ 10 MG/ML 1ML (SYR OR VIAL) IV PRN (07:30)
[2018-04-22] MEDS ORDERED: ONDANSETRON 4 MG/2 ML (SDV) Z0FRAN IV PRN (07:30)
[2018-04-22] MEDS ORDERED: MILK OF MAGNESIA 400 MG/5 ML 30 ML UDC PO PRN (07:30)
[2018-04-22] MEDS ORDERED: ACETAMINOPHEN 325 MG TABLET PO PRN (07:30)
[2018-04-22] MEDS ORDERED: proPOfol 200 MG/20 ML (DIPRIVAN) VIAL IV ONE ×2 (07:36→09:24)
[2018-04-22] MEDS ORDERED: ONDANSETRON 4 MG/2 ML (SDV) Z0FRAN ONE (07:36)
[2018-04-22] MEDS ORDERED: LIDOCAINE PF 2% 5 ML (XYLOCAINE) VIAL ONE (07:36)
[2018-04-22] MEDS ORDERED: SEVOFLURANE (ULTANE) 15 ML INHAL SOLN ONE (07:36)
[2018-04-22] MEDS ORDERED: PROPOFOL INJECTION 50 ML IV ONE (07:36)
[2018-04-22] MEDS ORDERED: GLYCOPYRROLATE 0.2 MG/ML (ROBINUL) 2 ML VIAL ONE (07:36)
[2018-04-22] MEDS ORDERED: fentaNYL INJECTION 250 MCG/5 ML AMP ONE (07:36)
[2018-04-22] MEDS ORDERED: NEOSTIGMINE 1 MG/ML 5 ML SYRINGE ONE (07:36)
[2018-04-22] MEDS ORDERED: ROCURONIUM 10 MG/ML 5 ML SYRINGE IV ONE (07:36)
[2018-04-22] MEDS ORDERED: LACTATED RINGERS 1,000 ML IV PRN (07:39)
[2018-04-22 07:45] VITALS: BP 144/76
[2018-04-22] MEDS ORDERED: ceFAZolin 2 GM IV Premixed 50 ML IV ONE (07:45)
[2018-04-22] MEDS ORDERED: MIDAZOLAM 2 MG/2 ML (VERSED) VIAL ONE (07:56)
[2018-04-22] MEDS ORDERED: GENTAMICIN 40 MG/ML 2 ML INJ SDV ONE (07:59)
[2018-04-22] MEDS ORDERED: ceFAZolin 2 GM IV Premixed 50 ML ONE (08:03)
[2018-04-22] MEDS ORDERED: fentaNYL INJECTION 100 MCG/2 ML AMP ONE (09:11)
--- NOTE | 2018-04-22 09:53 | Progress Note-Post Operative ---
Post-Operative Progess Note Surgeon (s)/Strawhat Blocking Operator (s) Surgeon JOSI MOSER MD Strawhat Blocking Operator: BRE Carrasco Pre-Operative Diagnosis Cervical Stenosis Post-Operative Diagnosis Same Procedure & Operative Findings Date of Procedure 04/22/18 Procedure Performed/Findings C5-T1 ACDF Anesthesia Type GETA Estimated Blood Loss Estimated blood loss (mL): 100 Specimens/Packing Specimens Removed Disc, not sent to Pathology JOSI MOSER MD Apr 22, 2018 9:53 am
[2018-04-22] MEDS ORDERED: HYDROmorphone 1 MG/ML (DILAUDID) 1 ML SYRINGE ONE (10:11)
[2018-04-22] MEDS ORDERED: fentaNYL INJECTION 100 MCG/2 ML AMP IVP PRN (10:15)
[2018-04-22] MEDS ORDERED: ONDANSETRON 4 MG/2 ML (SDV) Z0FRAN IVP PRN (10:15)
[2018-04-22] MEDS ORDERED: MEPERIDINE (DEMEROL) INJ 50 MG/ML IVP PRN (10:15)
[2018-04-22] MEDS: HYDROmorphone 1 MG/ML (DILAUDID) 1 ML SYRINGE IV PRN ×3 (10:23→10:43)
[2018-04-22 12:00] VITALS: BP 160/80
[2018-04-22] MEDS: NS IV 1000 ML 1,000 ML IV SCH ×2 (12:29→23:58)
--- NOTE | 2018-04-22 12:31 | Diagnostic Imaging Report ---
INDICATION: Fluoroscopy for cervical spine surgery. FINDINGS: Fluoroscopy was provided in the OR during cervical spine surgery. A total of 8 seconds of fluoroscopy time was utilized. Images demonstrate performance of an ACDF from C5 to T1. The alignment appears normal. IMPRESSION: Fluoroscopy during cervical spine surgery, as described. Dictated by: Dictated on workstation # [id number]
[2018-04-22] MEDS: HYDROcodone/APAP 5 MG/325 MG (LORTAB) TAB PO PRN ×3 (14:46→23:57)
--- NOTE | 2018-04-22 14:54 | Anesthesia-General Post-Op ---
General Patient Condition Mental Status/LOC: Same as Preop Cardiovascular: Satisfactory Nausea/Vomiting: Absent Respiratory: Satisfactory Pain: Controlled Complications: Absent Post Op Complications Complications None Follow Up Care/Instructions Patient Instructions None needed. Anesthesia/Patient Condition Patient Condition Patient is doing well, no complaints, stable vital signs, no apparent adverse anesthesia problems. No complications reported per nursing. D/C home per [facility] Criteria: No DAMION WESLEY CRNA Apr 22, 2018 14:53
[2018-04-22] MEDS: ceFAZolin 2 GM/50 ML PRE-MIXED IVPB IV SCH ×2 (15:02→22:46)
--- NOTE | 2018-04-22 15:35 | OPERATIVE REPORT ---
DATE OF SERVICE: 04/22/2018 PREOPERATIVE DIAGNOSES: Cervical stenosis, neural canal and neural foramina due to disk and osseous structure, cervical spondylosis with radiculopathy. POSTOPERATIVE DIAGNOSES: Cervical stenosis, neural canal and neural foramina due to disk and osseous structure, cervical spondylosis with radiculopathy. PROCEDURES PERFORMED: 1. C5-C6 anterior cervical discectomy and fusion. 2. C6-C7 anterior cervical diskectomy and fusion. 3. C7-T1 anterior cervical discectomy and fusion. 4. C5-C6, C6-C7 and C7-T1 interbody cage instrumentation without interval fixation. 5. C5-T1 anterior cervical plate instrumentation. 6. Allograft for spine surgery, morselized. DATE AND TIME OF SURGERY: Please see anesthesia record. IMPLANTS USED: K2M [place] view plate, K2M [place] titanium cervical interbody cage and K2M [place] bone graft. SURGEON: Josi Jade MD DANCE HISTORIAN: NEDRA Carrasco. ROLE OF EDUCATION TECHNICIAN: Aid in retraction of procedure, suction of neural elements, and wound closure. ANESTHESIA: General endotracheal. ESTIMATED BLOOD LOSS: 100 mL. INTRAVENOUS FLUIDS: Please see anesthesia record. ANTIBIOTICS: Ancef. COMPLICATIONS: None. SPECIMENS: Disk, but not sent for pathologic examination. NEUROMONITORING: Standard intraoperative neuromonitoring carried out by means of real time continuous high quality bidirectional mode, audio and visual communication by Dr. Cho. SSEPs, EMGs, TcMEPs, TOFs were carried out continuously throughout the procedure stable. INDICATIONS FOR PROCEDURE: The patient is a 72-year-old male with progressively intolerable neck and arm pain, failed conservative therapy, desires operative treatment. DESCRIPTION OF PROCEDURE: The patient was taken to the preoperative holding area and brought back to the operative suite. After adequate induction of general anesthetic, preoperative antibiotics, placed supine on the OR table. Shoulder roll was placed, head extended, sterilely prepped and draped the anterior cervical spine. Standard left-sided Barros-Vargas approach, neck was carried out without difficulty. Once the appropriate levels were confirmed, Shadow-Line retractor was placed deep to the longus colli for remainder of the case and starting at C7-T1, Nora pins were placed. Anterior dissection was performed. Disk decompression all the way down to the posterior longitudinal ligament was carried out in place. Trial spacer was utilized and the appropriate size 8 mm [place] titanium cage filled with allograft. Bone was impacted in position with great fit achieved. Procedure was then carried out at the 6, 7 and C5-C6 levels. 7 mm spacers at these levels are placed. Nora pins were then removed. Anterior osteophytes were taken down and the appropriate sized [place] plate was affixed to the spine with a combination of 14 and 16 mm variable angle screws. Locking mechanism was deployed. Wound was copiously irrigated. Deep drain was placed. FloSeal and bipolar cautery was used to aid in hemostasis. Wound was closed in layers. The patient was transferred to recovery room in stable condition and tolerated the procedure well with stable spinal monitoring. Job ID: [id number] DocumentID: [id number] Dictated Date: 04/22/2018 09:52:16 Casting And Curing Operator Date: 04/22/2018 15:34:25 Dictated By: JOSI JADE MD
[2018-04-22 16:00] VITALS: BP 139/84
[2018-04-22] MEDS ORDERED: ceFAZolin INJECTION 2,000 MG in NS (IVPB) 50 ML IV SCH (16:00)
[2018-04-22 19:25] VITALS: BP 133/76
[2018-04-23 00:29] VITALS: BP 163/87
[2018-04-23] MEDS: NS IV 1000 ML 1,000 ML IV SCH (01:57)
[2018-04-23 03:59] VITALS: BP 151/89
--- NOTE | 2018-04-23 05:37 | Progress Note (SOAP) ---
Subjective Date Seen by Provider: Apr 23, 2018 Time Seen by Provider: 05:33 Subjective/Events-last exam POD #1, S/P C5-7 ACDF VSS, Afebrile No complaints Review of Systems General: No Chills Pulmonary: No Cough Cardiovascular: No: Chest Pain Gastrointestinal: No: Nausea, Vomiting Musculoskeletal: neck pain; No: arm pain Neurological: No: Weakness, Confusion Objective Exam Vital Signs Date Time Temp Pulse Resp B/P (MAP) Pulse Ox O2 Delivery O2 Flow Rate FiO2 04/23/18 03:59 98.4 76 16 151/89 (109) 94 Nasal Cannula 2.00 04/23/18 00:29 98.5 79 18 163/87 (112) 95 Nasal Cannula 2.00 04/22/18 19:25 98.7 82 16 133/76 (95) 96 Nasal Cannula 2.00 04/22/18 16:00 98.3 87 20 139/84 (102) 94 Nasal Cannula 2.00 04/22/18 12:00 96.3 70 16 160/80 (106) 96 Nasal Cannula 2.00 04/22/18 11:10 96 Nasal Cannula 2.00 04/22/18 07:45 98.0 62 16 144/76 (98) 97 Room Air I & O 04/23/18 07:00 Intake Total 1390 ml Output Total 1000 ml Balance 390 ml Capillary Refill : General Appearance: No Apparent Distress Neck: Other (Trachea midline, normal phonation, ) Respiratory: No Respiratory Distress Gastrointestinal: non tender, soft Extremity: Non Tender, No Calf Tenderness, Other (BUE motor intact, NVI) Neurologic/Psychiatric: Alert, Oriented x3, No Motor/Sensory Deficits, Normal Mood/Affect, 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
[2018-04-23] MEDS: MULTIVIT W/MINERALS TAB (THERAGRAN M) PO SCH (06:13)
[2018-04-23] MEDS: HYDROcodone/APAP 5 MG/325 MG (LORTAB) TAB PO PRN (06:13)
[2018-04-23] MEDS: ceFAZolin 2 GM/50 ML PRE-MIXED IVPB IV SCH (06:16)
--- NOTE | 2018-04-23 07:45 | Diagnostic Imaging Report ---
INDICATION: Postop cervical spine. COMPARISON: None. FINDINGS: Frontal and lateral radiographic views of the cervical spine were obtained show postsurgical changes of previous anterior cervical fusion extending from C5 through T1. C7-T1 level is, however, heavily obscured secondary to overlying osseous and soft tissue structures. Visualized portions of the hardware, however, appear to be intact. Fusion plate is well opposed to underlying cervical spine. Intervertebral disc spaces are also noted. The C5-C6 and C6-C7 disc spaces appear to be in appropriate position. T7-T1 disc space is not well visualized. Visualized portions cervical spine show normal static alignment. No acute osseous abnormalities are seen. No unexpected radiopaque foreign bodies are identified. IMPRESSION: 1. Postsurgical changes of previous anterior fusion of cervical spine as described above. 2. No acute fracture or dislocation. Dictated by: Dictated on workstation # [id number]
[2018-04-23 08:00] VITALS: BP 180/82
--- NOTE | 2018-04-23 08:43 | Consultation ---
History of Present Illness History of Present Illness Patient Consulted On(kamla/time) 04/23/18 08:39 Date Seen by Provider: Apr 23, 2018 Time Seen by Provider: 08:39 Reason for Visit: SPINAL STENOSIS History of Present Illness PT IS A 72 Y/O MALE WHO IS KNOWN TO ME FROM CLINIC. HE PRESENTED TO THE HOSPITAL YESTERDAY FOR PLANNED CERVICAL SPINE SURGERY DUE TO CERVICAL SPINE STENOSIS - SURGERY BY DR. MOSER. TODAY - PT IS AMBULATING WITH PHYSICAL THERAPY STAFF IN THE HALLS, HE REPORTS THAT HIS PAIN IS FAIRLY WELL CONTROLLED. HE WAS AMBULATING WITH STAFF WITH MINIMAL DISCOMFORT. HE REPORTS THAT HE HAS SOME SORENESS TO HIS THROAT. Allergies and Home Medications Allergies Coded Allergies: No Known Drug Allergies (Verified , 07/10/17) Home Medications Apixaban 5 Mg Tablet, 5 MG PO BID, (Reported) Atorvastatin Calcium 20 Mg Tablet, 20 MG PO HS, (Reported) Carbidopa/Levodopa 1 Each Tablet, 2 TAB PO DAILY, (Reported) Carbidopa/Levodopa 1 Each Tablet.er, 1 TAB PO HS, (Reported) Cholecalciferol (Vitamin D3) 2,000 Unit Capsule, 2,000 UNIT PO DAILY, (Reported) Clopidogrel Bisulfate 75 Mg Tablet, 75 MG PO DAILY, (Reported) Cyanocobalamin (Vitamin B-12) 1,000 Mcg Tab.subl, 1,000 MCG SL DAILY, (Reported) Furosemide 40 Mg Tablet, 40 MG PO BID, (Reported) Glucosamine/MSM/Chondroitin A 1 Each Tablet, 1 TAB PO DAILY, (Reported) Hydrocodone Bit/Acetaminophen 1 Tab Tab, 1-2 TAB PO Q4H PRN for PAIN-MODERATE Prescribed by: DOROTHY MORALES on 04/24/18 0654 Levothyroxine Sodium 50 Mcg Tablet, 50 MCG PO DAILY, (Reported) Montelukast Sodium 10 Mg Tablet, 10 MG PO HS, (Reported) Multivit-Min/FA/Lycopen/Lutein 1 Each Tablet, 1 TAB PO DAILY, (Reported) Pantoprazole Sodium 40 Mg Tablet.dr, 40 MG PO DAILY, (Reported) Polyvinyl Alcohol/Povidone 15 Ml Drops, 1 DROP OU QID PRN for DRY EYES, ( Reported) Potassium Chloride 20 Meq Tab.er.prt, 20 MEQ PO BID, (Reported) Sacubitril/Valsartan 1 Each Tablet, 1 TAB PO BID, (Reported) Ubidecarenone 100 Mg Capsule, 100 MG PO DAILY, (Reported) Patient Home Medication List Home Medication List Reviewed: Yes Past Ofyehlm-Bhmtfz-Gtxley Hx Past Med/Social Hx: Reviewed Nursing Past Med/Soc Hx, Reviewed and Corrections made Patient Social History Alcohol Use: Occasionally Uses Number of Drinks Today: AA Alcohol Beverage of Choice: Beer, [place] Recreational Drug Use: No Smoking Status: Never a Smoker 2nd Hand Smoke Exposure: No Recent Foreign Travel: No Contact w/Someone Who Travel: No Recent Infectious Disease Expo: No Recent Hopitalizations: No Immunizations Up To Date Tetanus Booster (TDap): Less than 5yrs PED Vaccines UTD: No Date of Pneumonia Vaccine: Jul 24, 2016 Date of Influenza Vaccine: Aug 30, 2017 Seasonal Allergies Seasonal Allergies: Yes Past Medical History Surgeries: Yes (venita cyst removed, bilat CTR, bilat rotator cuff, R knee scope, ) Appendectomy, Cardiac, Gallbladder, Joint Replacement Respiratory: Yes (MILD) Asthma, Sleep Apnea Currently Using CPAP: Yes (SENT TO RECOVERY WITH PT.) Currently Using BIPAP: No Cardiac: Yes (CARDIOVERSION, anticoagulated) Atrial Fibrillation, High Cholesterol, Hypertension Neurological: Yes Reproductive Disorders: No Sexually Transmitted Disease: No HIV/AIDS: No Genitourinary: Yes Kidney Stones Gastrointestinal: Yes Gastroesophageal Reflux, Diverticulosis, Polyps Musculoskeletal: Yes (SPINAL STENOSIS) Degenerate Disk Disease, Arthritis, Chronic Back Pain Endocrine: Yes HEENT: Yes (CATARACTS REMOVED) Loss of Vision: Bilateral Hearing Impairment: Hard of Hearing Cancer: No Psychosocial: No Integumentary: No Blood Disorders: No Adverse Reaction/Blood Tranf: No Family Medical History Hypertension 19 MOTHER Respiratory disorder 19 FATHER No Pertinent Family Hx Review of Systems-General Constitutional: No chills, No fever, No malaise, No weakness EENTM: hoarseness, throat pain; No blurred vision, No throat swelling Respiratory: No cough, No dyspnea on exertion, No short of breath Cardiovascular: No chest pain, No palpitations Gastrointestinal: No abdominal pain, No constipation, No diarrhea Genitourinary: no symptoms reported Musculoskeletal: back pain, neck pain Skin: no symptoms reported Psychiatric/Neurological: Denies Anxiety, Denies Depressed All Other Systems Reviewed Negative Unless Noted: Yes Physical Exam-General Problems Physical Exam Vital Signs Vital Signs - First Documented 04/22/18 04/22/18 07:45 11:10 Temp 98.0 Pulse 62 Resp 16 B/P (MAP) 144/76 (98) Pulse Ox 97 O2 Delivery Room Air O2 Flow Rate 2.00 Capillary Refill : General Appearance: WD/WN, no apparent distress HEENT: PERRL/EOMI, pharynx normal Neck: non-tender, supple Respiratory: chest non-tender, lungs clear, normal breath sounds, no respiratory distress Cardiovascular: regular rate, rhythm Gastrointestinal: normal bowel sounds, non tender, soft, no organomegaly, no pulsatile mass Back: other (NECK BRACE IN PLACE) Extremities: normal range of motion, non-tender, normal inspection, no pedal edema Neurologic/Psychiatric: supervising editor news reel II-XII nml as tested, alert, normal mood/affect, oriented x 3 Skin: warm/dry Assessment/Plan Assessment/Plan Admission Diagnosis/Plan CERVICAL SPINE STENOSIS HYPERTENSION PARKINSONS DISEASE ATRIAL FIBRILLATION CONGESTIVE HEART FAILURE HYPOTHYROIDISM ESOPHAGEAL REFLUX CHRONIC ANTICOAGULATION HYPERLIPIDEMIA CERVICAL SPINE STENOSIS - STATUS POST SURGICAL INTERVENTION - CONTINUE WITH THERAPY. HYPERTENSION - RESUME HOME MEDICATIONS PARKINSONS DISEASE - RESUME SINEMET ATRIAL FIBRILLATION - HOLD ELIQUIS UNTIL TOMORROW THEN OKAY TO RESTART PER DR. MOSER CONGESTIVE HEART FAILURE - RESUME HOME MEDICATION, MONITOR WEIGHT. HYPOTHYROIDISM - RESTART LEVOTHYROXINE ESOPHAGEAL REFLUX - PPI RESTARTED THANK YOU FOR THE CONSULTATION ON MY CLINIC PATIENT. Admission Status: Inpatient Order (span 2 midnights) Reason for Inpatient Admission: INPATIENT ADMISSION FOR MORE THAN 2 MIDNIGHTS DUE TO CERVICAL SPINE SURGERY WITH MONITORING FOR RECOVERY AND PHYSICAL THERAPY EVAL AND PAIN MANAGEMENT. Clinical Quality Measures DVT/VTE Risk/Contraindication: Risk Factor Score Per Nursin RFS Level Per Nursing on Admit: 4+=Very High HIEU PILLAI MD Apr 23, 2018 08:43
--- NOTE | 2018-04-23 09:31 | Physical Therapy Evaluation ---
PT Evaluation-General Medical Diagnosis Admission Date Apr 22, 2018 at 07:29 Medical Diagnosis: stenosis Onset Date: Apr 22, 2018 Therapy Diagnosis Therapy Diagnosis: debility Height/Weight Height (Feet): 5 Height (Inches): 9.00 Weight (Pounds): 232 Weight (Ounces): 0.0 Precautions Precautions/Isolations: Standard Precautions Weight Bear Status Right Lower Extremity: Right Full Weight Bearing Left Lower Extremity: Left Full Weight Bearing Referral Physician: Yasmany Reason for Referral: Evaluation/Treatment Medical History Pertinent Medical History: Atrial Fib, CAD, Hypothroidism Current History s/p C5-T1 ACDF Reviewed History: Yes Social History Home: Single Level Current Living Status: Spouse Prior/Core FIM Prior Level of Function Functional [place] Measure 0=Not Assessed/NA 4=Minimal Assistance 1=Total Assistance 5=Supervision or Setup 2=Maximal Assistance 6=Modified [place] 3=Moderate Assistance 7=Complete [place] Bed Mobility: 6 Transfers (B,C,W/C) (FIM): 6 Gait: 6 Locomotion: 6 utilized FWW at home PLOF PT Evaluation-Current Subjective Patient agrees to PT. No c/o. Pain Numeric Pain Scale: 5-Moderate Pain Location: Incisional Location Body Site: Neck Pain Description: Acute Objective Patient Orientation: Normal For Age Problem Solving: Good Attachments: IV ROM/Strength ROM Lower Extremities bilateral LE WNL Strength Lower Extremities 4+/5 grossly bilaterally Integumentary/Posture Integumentary refer to nursing notes Bowel Incontinence: No Bladder Incontinence: No Posture WFL Neuromuscular (Tone, Coordination, Reflexes) grossly intact Sensory Vision: Wears Glasses Hearing: Functional Sensation Right Lower Extremit: Intact Sensation Left Lower Extremity: Intact Transfers Functional [place] Measure 0=Not Assessed/NA 4=Minimal Assistance 1=Total Assistance 5=Supervision or Setup 2=Maximal Assistance 6=Modified [place] 3=Moderate Assistance 7=Complete [place] Transfers (B, C, W/C) (FIM): 6 Scootin Rollin Supine to/from Sit: 6 Sit to/from Stand: 6 Gait Mode of Locomotion: Walk Anticipated Mode of Locomotion: Walk Gait (FIM): 6 Distance (FIM): 3=150 ft Distance: >800' Gait Level of Assist: 6 Gait Assistive Device: FWW Comments/Gait Description safe and functional with no deviation Balance Sitting Static: Normal Sitting Dynamic: Normal Standing Static: Normal Standing Dynamic: Normal Assessment/Needs 72 y.o. male, will be seen x 2 sessions to address functional mobility to ensure safe return to home with spouse at maximum LOF. Rehab Potential: Good PT Short Term Goals Short Term Goals Time Frame: Apr 24, 2018 Transfers (B,C,W/C) (FIM): 6 Gait (FIM): 6 Distance (FIM): 3=150 ft Gait Level of Assist: 6 Gait Assistive Device: FWW PT Plan Treatment/Plan Treatment Plan: Continue Plan of Care Treatment Plan: Education, Gait, Safety, Transfers Treatment Duration: Apr 24, 2018 Frequency: 2 times per week Estimated Hrs Per Day: .25 hour per day Patient and/or Family Agrees t: Yes Time/GCodes Time In: 830 Time Out: 845 Total Billed Treatment Time: 15 Total Billed Treatment 1 visit EVModC 15 min G Codes Necessary: PARK Lamar PT Apr 23, 2018 09:31
[2018-04-23] MEDS: SACUBITRIL/VALSARTAN 24/26 MG (ENTRESTO) TABLET PO SCH ×2 (09:33→21:11)
[2018-04-23] MEDS: PANTOPRAZOLE 40 MG (PROTONIX) TAB PO SCH (09:33)
[2018-04-23] MEDS: FUROSEMIDE 40 MG (LASIX) TAB PO SCH ×2 (09:33→21:11)
[2018-04-23] MEDS: SINEMET 25/100 (CARBIDOPA/LEVODOPA) TAB PO SCH (09:34)
[2018-04-23] MEDS: LEVOTHYROXINE 50 MCG (LEVOTHROID) TAB PO SCH (09:34)
[2018-04-23] MEDS: KCL 20 MEQ TAB (K-DUR) PO SCH ×2 (09:34→21:11)
--- NOTE | 2018-04-23 10:56 | Occupational Therapy Eval ---
OT Evaluation-General/PLF Medical Diagnosis Admission Date Apr 22, 2018 at 07:29 Medical Diagnosis: stenosis Onset Date: Apr 22, 2018 Therapy Diagnosis Therapy Diagnosis: decr self care Height/Weight Height (Feet): 5 Height (Inches): 9.00 Weight (Pounds): 232 Weight (Ounces): 0.0 Precautions Precautions/Isolations: Standard Precautions Safety Interventions: Reorient-PRN Referral Physician: Yasmany Referral Reason: Evaluation/Treatment Medical History Pertinent Medical History: Atrial Fib, Arthritis, CAD, GERD, Heart Failure, HTN , Hypothroidism Additional Medical History Bilat CTR, bilat JOSE ANTONIO, bilat rotator cuff surgeries, L total shoulder, R thumb surgery, per pt report. Asthma, sleep apnea. Kidney stones. Chronic back pain. C[place]. Essential tremors, per pt report. Current History Elective cervical fusion Social History Home: Single Level Current Living Status: Spouse ADL-Prior Level of Function ADL PLOF Comments Pt reported that he has been able to manage his basic self care needs except for occasional help with buttons due to essential tremors in hands. He is able to manage home tasks and still drives. 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 He said that he started using a FWW a few months ago and has some symptoms of lower back stenosis which he is hopeful will improve after this surgery. DME/Equipment: Grab Bars, Shower, Toilet/Riser Drive Self: Yes OT Current Status Subjective Pt seen in room, up in recliner, agreeable to OT. Pain rated as "not bad" and said that he's not taking much pain medicine Appearance Alert, cooperative Mental Status/Objective Attachments: IV, Other-See Comments (soft cervical collar) Current Glasses/Contacts: Yes Hand Dominance: Right Upper Extremity ROM Grossly WFL bilat Upper Extremity Strength Grossly WFL bilat Pt said that he is to wear hard cervical collar when in the car ADL-Treatment ADL-Current Pt reported that he has been able to get on/off tall toilet in bathroom without difficulty. He has a stool riser and bench in shower at home. Pt described modified techniques he already uses for ADLs, including sitting to dress and dressing weaker leg first. Functional [place] Measure 0=Not Assessed/NA 4=Minimal Assistance 1=Total Assistance 5=Supervision or Setup 2=Maximal Assistance 6=Modified [place] 3=Moderate Assistance 7=Complete IndependenceIRFPAI Quality Coding Scale 6 Independent with activity with or without an assistive device 5 Patient requires set up or clean up by helper. Patient completes activity by themselves 4 Supervision or touching assist (CGA). [place] provide cues , steadying assist 3 The helper provides less than half the effort to complete the activity 2 The helper provides more than half the effort to complete the activity 1 Dependent. The helper does all the effort to complete an activity 7 Patient refused to complete or attempt activity 9 The patient did not perform the activity before the current illness or injury 88 Not attempted due to Medical conditions or safety concerns Education OT Patient Education: Modified ADL techniques, Purpose of tx/functional activities, Rehab process, Use of adapted equipment Teaching Recipient: Patient Teaching Methods: Discussion Response to Teaching: Verbalize Understanding OT Grinder Set Up Operator Centerless Goals Grinder Set Up Operator Centerless Goals Time Frame: Apr 23, 2018 Additional Goals: 2-Verbalize Understanding (goal met) 2=Patient will verbalize/demonstrate understanding of assistive devices/ modifications for ADL. OT Education/Plan Problem List/Assessment Assessment: Impaired Self-Care Skills Pt would benefit from skilled OT for education and discussion on ADL equipment and safety after cervical surgery Discharge Recommendations Plan/Recommendations: Discharge/Goals Met Therapy D/C Recommendations: Home w/ Family Support Treatment Plan/Plan of Care Treatment,Training & Education: Yes Patient would benefit from OT for education, treatment and training to promote independence in ADL's, mobility, safety and/or upper extremity function for ADL' s. Plan of Care: ADL Retraining (education) Treatment Duration: Apr 23, 2018 Frequency: 1 time per week Estimated Hrs Per Day: .25 hour per day Agreement: Yes Rehab Potential: Good Time/GCodes Start Time: 10:15 Stop Time: 10:35 Total Time Billed (hr/min): 20 Billed Treatment Time visit, 15 minutes evaluation low intensity, 5 minutes ADL JESSICA HERNANDEZ OT Apr 23, 2018 10:56
[2018-04-23 12:00] VITALS: BP 156/76
[2018-04-23] MEDS: CATHETER FLUSH 10 ML SYR IV SCH ×2 (14:20→21:13)
[2018-04-23 16:00] VITALS: BP 156/74
[2018-04-23 19:29] VITALS: BP 127/69
[2018-04-23] MEDS ORDERED: ATORVASTATIN 20 MG (LIPITOR) TABLET PO SCH (21:00)
[2018-04-23] MEDS ORDERED: SINEMET CR 50/200 (CARBIDOPA/LEVODOPA SA) TAB PO SCH (21:00)
[2018-04-23] MEDS ORDERED: MONTELUKAST 10 MG (SINGULAIR) TAB PO SCH (21:00)
[2018-04-23] MEDS ORDERED: SINEMET 25/100 (CARBIDOPA/LEVODOPA) TAB PO SCH (21:00)
[2018-04-24 00:05] VITALS: BP 184/84
[2018-04-24] MEDS: CATHETER FLUSH 10 ML SYR IV SCH (06:13)
[2018-04-24] MEDS: MULTIVIT W/MINERALS TAB (THERAGRAN M) PO SCH (06:13)
[2018-04-24] MEDS: HYDROcodone/APAP 5 MG/325 MG (LORTAB) TAB PO PRN (06:17)
[2018-04-24] MEDS ORDERED: ACHD5005 PO (06:54)
--- NOTE | 2018-04-24 06:58 | Discharge Inst-Surgical ---
Discharge Inst-Surgical Depart Medication/Instructions New, Converted or Re-Newed RX: RX on Chart Final Diagnosis: Cervical stenosis with radiculopathy Consults/Follow Up Goal/Follow Up Appt.: In 2 weeks Patient Instructions: Do not submerge incision, May shower Wear hard collar when ambulating and in vehicle May wear soft collar when in bed and sitting May resume plavix on 04/27/18 Call with questions or concerns Activity No lifting >15 lbs. Collar use as described Driving Instructions: No Driving for 2 Weeks No Driving When on Pain Meds: Yes Incentive Spirometry: Every 2 Hours While Awake Diet Discharge Diet: No Restrictions Symptoms to Report to Physicia: Numbness/Tingling, Swelling Increased, Pain Increased, Fever Over 101 Degrees F Skin/Wound Care Infection Signs and Symptoms: Increased Redness, Increased Drainage, Increased Swelling, Temperature Above 101 F Bathing Instructions: Shower Operative Area Clean and Dry: Keep Incision Clean/Dry Stitches/[place]/Dermabond Dis: DOROTHY Todd Apr 24, 2018 06:58
--- NOTE | 2018-04-24 07:06 | Discharge Summary ---
Diagnosis/Chief Complaint Date of Admission Apr 22, 2018 at 07:29 Date of Discharge 04/24/18 Discharge Date: Apr 24, 2018 Discharge Time: 07:02 Admission Diagnosis Admission Diagnosis Cervical stenosis with radiculopathy Discharge Diagnosis Cervical stenosis with radiculopathy Atrial Fibrillation Congestive heart failure Hypothyroidism Coronary artery disease Reason Hospital Visit Cervical stenosis with radiculopathy Discharge Summary Procedures: C5-T1 ACDF Consultations Dr. Encinas Discharge Physical Examination Allergies: Coded Allergies: No Known Drug Allergies (Verified , 07/10/17) Vitals & I&Os Vital Signs Date Time Temp Pulse Resp B/P (MAP) Pulse Ox O2 Delivery O2 Flow Rate FiO2 04/24/18 00:05 98.4 65 18 184/84 (117) 96 Room Air 04/23/18 22:06 2.00 General Appearance: Alert, Oriented X3 Respiratory: Normal Air Movement Abdominal: Soft Extremities: No Edema Neuro: Normal Gait, Normal Speech, Strength at 5/5 X4 Ext, Normal Tone, Sensation Intact Hospital Course Patient was brought to [facility] for scheduled surgical procedure. He underwent a C5-T1 ACDF. Post operatively he progressed well with PT and had good pain control with oral narcotics. Due to his continued progress, he was discharged home on POD #2 Discharge Condition at discharge Stable Instructions to patient/family Please see electronic discharge instructions given to patient. Discharge Medications Reviewed and agree with Discharge Medication list on patient's Discharge Instruction sheet Clinical Quality Measures DVT/VTE Risk/Contraindication: Risk Factor Score Per Nursin RFS Level Per Nursing on Admit: 4+=Very High DOROTHY MORALES Apr 24, 2018 07:06
[2018-04-24 08:00] VITALS: BP 152/71
[2018-04-24] MEDS: FUROSEMIDE 40 MG (LASIX) TAB PO SCH (08:58)
[2018-04-24] MEDS: PANTOPRAZOLE 40 MG (PROTONIX) TAB PO SCH (08:58)
[2018-04-24] MEDS: KCL 20 MEQ TAB (K-DUR) PO SCH (08:58)
[2018-04-24] MEDS: SACUBITRIL/VALSARTAN 24/26 MG (ENTRESTO) TABLET PO SCH (08:58)
[2018-04-24] MEDS: SINEMET 25/100 (CARBIDOPA/LEVODOPA) TAB PO SCH (08:58)
[2018-04-24] MEDS: LEVOTHYROXINE 50 MCG (LEVOTHROID) TAB PO SCH (08:58)
[2018-04-24] MEDS ORDERED: APIXABAN 5 MG (ELIQUIS) TABLET PO SCH (09:00)
[2018-04-24 09:40] VITALS: BP 152/71
--- NOTE | 2018-04-29 12:00 | Physician Query Clarification ---
PQ-Further Specificity Admission/Discharge Admission Date: Apr 22, 2018 at 07:29 Discharge Date: Apr 24, 2018 at 09:40 The medical record reflects the following clinical scenario: History/Risk Factors: HTN, CHF, Parkinson's Clinical Findings: last BNP on 07/12/17 306.3, last EF on 11/14/16 was 50-55% Treatment: Lasix 40 mg PO Question: Can you further specify CHF per the clinical indicators above? Please document below. 1. Chronic diastolic CHF 2. Chronic systolc CHF 3. Other, with explanation of the clinical findings. 4. Clinically undetermined, no explanation for the clinical findings. PHYSICIAN RESPONSE Can you specify per above: 2 In responding to this query, please exercise your independent professional judgment. The purpose of this communication is to more accurately reflect the complexity of your patients condition. The fact that a question is asked does not imply that any particular answer is desired or expected. Thank you for your timely response to this clarification. Requestors name: Felicitas THIS PHYSICIAN QUERY FORM IS A PERMANENT PART OF THE MEDICAL RECORD FELICITAS DUARTE Apr 29, 2018 12:00 DOROTHY MORALES May 10, 2018 08:07
== END 2018-04-24 09:40 | disposition home or self-care (01) | DRG 472 ==
LOC: 4TH 07:29 → SURG 07:30 → EDSTATUS 09:30 → 4TH 11:10
PROVIDERS: ADMIT Orthopaedic Surgery Orthopaedic Surgery of the Spine; ATTEND Orthopaedic Surgery Orthopaedic Surgery of the Spine
PROC: 0RG40A0 Fusion of Cervicothoracic Vertebral Joint with Interbody Fusion Device, Anterior Approach, Anterior Column, Open Approach (ICD-10-PCS; 2018-04-22)
PROC: 0RG20A0 Fusion of 2 or more Cervical Vertebral Joints with Interbody Fusion Device, Anterior Approach, Anterior Column, Open Approach (ICD-10-PCS; principal; 2018-04-22 08:23)
DX: M47.22 Other spondylosis with radiculopathy, cervical region (principal); G20 Parkinson's disease; I11.0 Hypertensive heart disease with heart failure; I50.22 Chronic systolic (congestive) heart failure; I48.91 Unspecified atrial fibrillation; E03.9 Hypothyroidism, unspecified; E78.5 Hyperlipidemia, unspecified; K21.9 Gastro-esophageal reflux disease without esophagitis; I25.10 Atherosclerotic heart disease of native coronary artery without angina pectoris; G47.33 Obstructive sleep apnea (adult) (pediatric); J45.909 Unspecified asthma, uncomplicated; M19.91 Primary osteoarthritis, unspecified site; E78.00 Pure hypercholesterolemia, unspecified; H91.90 Unspecified hearing loss, unspecified ear; Z95.5 Presence of coronary angioplasty implant and graft; Z86.010 Personal history of colon polyps; Z87.19 Personal history of other diseases of the digestive system
CPT/HCPCS: 72040

== ENCOUNTER → 2018-06-06 | Outpatient (CLI) | payer MEDICARE, OTHER ==
--- NOTE | 2018-06-06 12:49 | Diagnostic Imaging Report ---
PROCEDURE: MRI lumbar spine. TECHNIQUE: Multiplanar, multisequence MRI of the lumbar spine was performed without contrast. INDICATION: Chronic back pain and bilateral leg weakness. COMPARISON: Correlation is made with prior MRI of the lumbar spine from 11/13/2017. FINDINGS: A left convexity scoliotic curvature is noted. There is normal lordotic curvature. The vertebral body heights are maintained. No acute compression fracture is seen. There are occasional benign-appearing hemangiolipomas within lumbar vertebrae. Multilevel degenerative disc disease is seen with variable disc space narrowing and desiccation, with greatest disc space narrowing at L3-L4 level. This is similar to prior study. The conus is unremarkable at the L1-L2 level. T12-L1: Hypertrophic facet changes are noted. Central canal remains patent. Neural foramina are patent. L1-L2: Hypertrophic facet changes and ligamentous thickening is seen. There is some trefoil configuration of the thecal sac with moderate narrowing. There does appear to be moderate left neuroforaminal narrowing. Right neural foramen is patent. L2-L3: Hypertrophic facet changes are noted. There is ligamentous thickening. Broad-based disc/osteophyte complex significantly narrows the lateral recesses bilaterally. There is also moderate bilateral neuroforaminal stenosis. AP dimensions of the canal appear within normal limits. L3-L4: Broad-based disc/osteophyte complex as well as ligamentous thickening and significant hypertrophic facet changes result in significant trefoil central canal stenosis. There is also severe bilateral lateral recess stenosis and severe bilateral neuroforaminal stenosis. L4-L5: Hypertrophic facet changes and broad-based disc/osteophyte complex result in significant bilateral lateral recess stenosis. There is also significant bilateral neuroforaminal stenosis. Central canal is patent. L5-S1: There are hypertrophic facet changes and broad-based disc/osteophyte complex resulting in bilateral neuroforaminal and lateral recess stenosis. Central canal is patent. IMPRESSION: Severe multilevel lumbar spondylosis and facet arthropathy with multilevel central canal, lateral recess and neuroforaminal stenosis, described level by level above. This is similar to examination from 11/13/2017. No acute compression fracture is identified. Dictated by: Dictated on workstation # [id number]
== END ==
LOC: RAD 10:56
PROVIDERS: ATTEND Physician Assistant
DX: M51.36 Other intervertebral disc degeneration, lumbar region (principal); M41.86 Other forms of scoliosis, lumbar region; M99.73 Connective tissue and disc stenosis of intervertebral foramina of lumbar region
CPT/HCPCS: 72148

== ENCOUNTER → 2018-07-03 | Outpatient (CLI) | payer MEDICARE, OTHER ==
[~2018-07-03] MED LIST changes: -LOSA100T28 PO; +LOSA100T8 PO
--- NOTE | 2018-07-03 11:06 | Diagnostic Imaging Report ---
PROCEDURE: US Renal Bilateral. TECHNIQUE: Multiple real-time grayscale images were obtained over the kidneys in various projections bilaterally. INDICATION: Renal insufficiency. The right kidney measures 12.2 x 6.1 x 5.7 cm and the left kidney measures 12.6 x 5.2 x 3.3 cm. Cortical thickness and echogenicity is normal. No calculi are seen. There is no hydronephrosis. There are bilateral renal cysts. Cyst on the right is in the lower pole measuring 2.3 x 1.7 cm. Multiple cysts on the left are identified, largest lower pole measuring 3.6 x 3.3 cm. No solid renal mass is identified. The bladder is unremarkable. IMPRESSION: Bilateral renal cysts. No calculi or hydronephrosis is detected. Dictated by: Dictated on workstation # [id number]
== END ==
LOC: RAD 10:37
PROVIDERS: ATTEND Urology
DX: N28.1 Cyst of kidney, acquired (principal)
CPT/HCPCS: 76770